=== PATIENT | male | born 1970 | race Caucasian/White ===

== ENCOUNTER 2016-09-25 09:34 | Emergency (ER) | payer SELFPAY ==
[~2016-09-25] VITALS: Ht 175.3 cm; Wt 116.5 kg
[2016-09-25 09:42] VITALS: Ht 175.3 cm; Wt 116.5 kg
[2016-09-25] MEDS ORDERED: SULF1TAB31 PO (10:25)
[2016-09-25] MEDS ORDERED: CEPH-443 PO (10:25)
[2016-09-25] MEDS ORDERED: ELIM TOP (10:29)
--- NOTE | 2016-09-25 10:33 | ERD ---
ER Documentation Chief Complaint Date/Time DATE: 09/25/16 TIME: 10:29 Chief Complaint left foot open blister x 10 days HPI Patient is a 45-year-old male who states that 10 days ago he went for a long walk and then developed a blister on his left foot. He is diabetic and takes metformin. She has mild to moderate pain in the foot. Denies any bleeding or drainage. Denies any fevers. Denies any numbness or tingling. Has not taken any medications for this. He is ambulatory. Patient is also complaining of bug bite-like lesions on the bilateral legs that he has been scratching that thinks it may be scabies. ROS All systems reviewed and are negative except as per history of present illness. Medications Home Meds Active Scripts Permethrin* (Elimite*) 5% Cr, 1 APPLIC TOP ONCE, #1 TUB Prov:KATIE JAY PA-C 09/25/16 Cephalexin* (Keflex*) 500 Mg Capsule, 500 MG PO QID for 7 Days, CAP Prov:KATIE JAY PA-C 09/25/16 Sulfamethoxazole/Trimethoprim* (Bactrim Ds* Tablet) 1 Each Tablet, 1 TAB PO BID , #14 TAB Prov:KATIE JAY PA-C 09/25/16 Allergies Allergies: Coded Allergies: No Known Allergy (Unverified , 09/25/16) PMhx/Soc History of Surgery: No Anesthesia Reaction: No Hx Respiratory Disorders: No Hx Cardiac Disorders: No Hx Psychiatric Problems: No Hx Miscellaneous Medical Probl: Yes (DM) Hx Alcohol Use: Yes Hx Substance Use: No Hx Tobacco Use: Yes Smoking Status: Former smoker FmHx Family History: diabetes Physical Exam Vitals Vital Signs Date Time Temp Pulse Resp B/P Pulse Ox O2 Delivery O2 Flow Rate FiO2 09/25/16 09:42 98.3 111 18 193/98 97 Physical Exam Const: [] Head: Atraumatic Eyes: Normal Conjunctiva ENT: Normal External Ears, Nose and Mouth. Neck: Full range of motion..~ No meningismus. Resp: Clear to auscultation bilaterally Cardio: Regular rate and rhythm, no murmurs Abd: Soft, non tender, non distended. Normal bowel sounds Skin: Plantar surface of the left foot has a large healing blister, no ulcer, mild surrounding erythema of the foot, pedal pulse 2+, capillary refill less than 2 seconds, sensation to light touch intact, full range of motion in the ankle and all toes. Bilateral lower extremities also have multiple small bug bite-like lesions. Results 24 hrs Laboratory Tests Test 09/25/16 10:21 Bedside Glucose 176mg/dL [facility] Patient presents with blisters on the foot. He is diabetic. He is neurovascularly intact. Patient's blood pressure was elevated (>120/80) but appears stable without evidence of hypertension emergency or urgency. The patient was counseled about the risks of hypertension and urged to pursue outpatient monitoring and therapy within a week with their primary care physician. Wound care was performed. Accu-Chek was 176. He was given a prescription for Bactrim, Keflex as well as permethrin for possible bug bites on lower extremities. Recommend he return in 2 days for wound check he should have a lower threshold for returning to the emergency room for his blister given that he is diabetic. Patient counseled regarding my diagnostic impression and care plan. Prior to discharge all questions answered. Pt agrees with treatment plan and understands strict return precautions. Pt is instructed to follow up with primary care provider within 24-48 hours. Precautionary instructions provided including instructions to return to the ER if not improving or for any worsening or changing symptoms or concerns. Departure Diagnosis: Primary Impression: Diabetes Additional Impressions: Blister Rash Condition: Stable Patient Instructions: Blister Additional Instructions: Call your primary care doctor TOMORROW for an appointment during the next 1-2 days.See the doctor sooner or return here if your condition worsens before your appointment time. KATIE JAY PA-C Sep 25, 2016 10:33
== END 2016-09-25 11:17 | disposition home or self-care (01) ==
LOC: FTE 09:34
DX: E11.9 Type 2 diabetes mellitus without complications (principal); R21 Rash and other nonspecific skin eruption; Z87.891 Personal history of nicotine dependence
CPT/HCPCS: 82962; 99284

== ENCOUNTER 2017-01-20 13:29 | Emergency (ER) | payer OTHER ==
[~2017-01-20] VITALS: Ht 175.3 cm; Wt 117.0 kg
[~2017-01-20 13:29] MED LIST: CEPH-443 PO; ELIM TOP; SULF1TAB31 PO
[2017-01-20 13:31] VITALS: Ht 175.3 cm; Wt 117.0 kg
--- NOTE | 2017-01-20 15:26 | RADRPT ---
PROCEDURE: XR left foot. CLINICAL INDICATION: Left foot pain. Diabetic foot ulcer. TECHNIQUE: 3 views. Frontal, lateral, and oblique. COMPARISON: None. FINDINGS: There is no fracture or dislocation. Vascular calcifications are present consistent with atherosclerosis. The soft tissues are otherwise normal. Articular surfaces are intact. There is a plantar calcaneal spur. There is no lytic or blastic lesion. There is no radiopaque foreign body. IMPRESSION: 1. Atherosclerosis. 2. Plantar calcaneal spur. 3. No lytic lesion. 4. No fracture. 5. Otherwise unremarkable images of the left foot. RPTAT: QQ .Fady Deras MD, MD Date Time Electronically viewed and signed by .Fady Deras MD, on 01/20/2017 15:26 .R/
--- NOTE | 2017-01-20 15:38 | ERD ---
ER Documentation Chief Complaint Chief Complaint left foot wound x 3 months HPI 46-year-old male complaining of left foot wound 3 months. Patient is diabetic. Denies any fever. Denies purulence from the wound. Patient has been cleaning it with bacitracin ointment and water. Patient has not been seen by podiatry. Denies any severe pain. Denies swelling. ROS All systems reviewed and are negative except as per history of present illness. Medications Home Meds Active Scripts Permethrin* (Elimite*) 5% Cr, 1 APPLIC TOP ONCE, #1 TUB Prov:KATIE JAY PA-C 09/25/16 Cephalexin* (Keflex*) 500 Mg Capsule, 500 MG PO QID for 7 Days, CAP Prov:KATIE JAY PA-C 09/25/16 Sulfamethoxazole/Trimethoprim* (Bactrim Ds* Tablet) 1 Each Tablet, 1 TAB PO BID , #14 TAB Prov:KATIE JAY PA-C 09/25/16 Allergies Allergies: Coded Allergies: No Known Allergy (Unverified , 09/25/16) PMhx/Soc History of Surgery: No Anesthesia Reaction: No Hx Respiratory Disorders: No Hx Cardiac Disorders: No Hx Psychiatric Problems: No Hx Miscellaneous Medical Probl: Yes (DM) Hx Alcohol Use: Yes Hx Substance Use: No Hx Tobacco Use: Yes Physical Exam Vitals Vital Signs Date Time Temp Pulse Resp B/P Pulse Ox O2 Delivery O2 Flow Rate FiO2 01/20/17 13:31 97.0 112 20 172/111 99 Physical Exam GENERAL: The patient is well-appearing, well-nourished, in no acute distress CHEST: Clear to auscultation bilaterally. There are no rales, wheezes or rhonchi. HEART: Regular rate and rhythm. No murmurs, clicks, rubs or gallops. No S3 or S4. EXTREMITIES: Equal pulses bilaterally. There is no peripheral clubbing, cyanosis or edema. No focal swelling or erythema. Full range of motion. Grossly neurovascularly intact. NEUROLOGIC: Alert and oriented. Cranial nerves II through XII intact. Motor strength in all 4 extremities with 5 out of 5 strength. Sensation grossly intact. Normal speech and gait SKIN: 1.5 cm x 8 mm open wound full thickness to sole of left foot located at the third MTP joint. No surrounding erythema. No purulence. No swelling noted to the extremity. No tenderness to palpation. Procedures/MDM DIAGNOSTIC IMAGING REPORT Patient: MARTINA ASHTON : 1970 Age: 46 Sex: M MR #: [id number] [facility] #: [id number] DOS: 01/20/17 1443 Ordering MD: TOMER GARCIA PA-C Location: [facility] Room/Bed: PROCEDURE: XR left foot. CLINICAL INDICATION: Left foot pain. Diabetic foot ulcer. TECHNIQUE: 3 views. Frontal, lateral, and oblique. COMPARISON: None. FINDINGS: There is no fracture or dislocation. Vascular calcifications are present consistent with atherosclerosis. The soft tissues are otherwise normal. Articular surfaces are intact. There is a plantar calcaneal spur. There is no lytic or blastic lesion. There is no radiopaque foreign body. IMPRESSION: 1. Atherosclerosis. 2. Plantar calcaneal spur. 3. No lytic lesion. 4. No fracture. 5. Otherwise unremarkable images of the left foot. MDM: 46-year-old male complaining of wound to left foot. Low suspicion for osteomyelitis as there is no pain to the foot and no surrounding erythema or swelling. There is no purulence. This is likely a chronic diabetic foot ulcer that would benefit from wound care follow-up. I do not feel that blood work or further imaging is indicated at this time. Patient has neuro sensation to the foot however is decreased secondary to diabetic neuropathy. Patient is discharged with strict ER precautions and told to follow-up with wound care and amputation clinic. Patient is told symptoms change or worsen to return immediately to the emergency room. All questions answered at discharge Departure Diagnosis: Primary Impression: Diabetic foot ulcer Condition: Stable Patient Instructions: Diabetic Foot Ulcers Referrals: [facility] Additional Instructions: FOLLOW UP WITH YOUR PRIMARY CARE PHYSICIAN TOMORROW.Return to this facility if you are not improving as expected. NAOMIE GARCIA PA-C Jan 20, 2017 15:38
[2017-01-20 15:47] VITALS: BP 162/92; PULSE 92; RESP 20; TEMP 98.1
== END 2017-01-20 15:48 | disposition home or self-care (01) ==
LOC: FTE 13:29
DX: E11.621 Type 2 diabetes mellitus with foot ulcer (principal); Z87.891 Personal history of nicotine dependence

== ENCOUNTER 2017-01-31 15:31 | Inpatient (IN) | payer OTHER ==
[2017-01-31] VITALS (16 sets, daily range): BP systolic 115–164; BP diastolic 58–90; PULSE 110–133; RESP 19–25; Ht 175.3 cm; Wt 116.0 kg
[~2017-01-31] VITALS: Ht 175.3 cm; Wt 116.0 kg
[2017-01-31] MEDS ORDERED: LIDOCAINE 2% (MDV) 20 ML INJ INJ ONE (16:05)
[2017-01-31] MEDS ORDERED: BUPIVACAINE 0.25% (MPF) 30 ML INJ INJ ONE (16:05)
[2017-01-31] MEDS ORDERED: POLYMYXIN/BACITRACIN 1L IRRIG IRR ONE (16:06)
[2017-01-31] MEDS ORDERED: LIDOCAINE 2% (MDV) 20 ML INJ ONE (16:12)
[2017-01-31] MEDS ORDERED: POLYMYXIN/BACITRACIN 1L IRRIG ONE (16:12)
[2017-01-31] MEDS ORDERED: BUPIVACAINE 0.5% (SDV) 30 ML INJ ONE (16:12)
[2017-01-31] MEDS ORDERED: CEFAZOLIN 2 GM/50 ML (PMX) 50 ML IVPB ONE (16:30)
[2017-01-31] MEDS ORDERED: VANCOMYCIN 1 GM in NS 250 ML IVPB ONE (16:30)
[2017-01-31] MEDS ORDERED: ACETAMINOPHEN 325 MG TAB ONE (16:32)
[2017-01-31] MEDS: SOD CHLORIDE 0.45% 1,000 ML IV SCH ×2 (16:42→21:26)
--- NOTE | 2017-01-31 16:56 | HPN ---
Date/Time of Note Date/Time of Note DATE: 01/31/17 TIME: 16:56 Interval H&P Admission Note Pt. seen H&P reviewed: No system changes JACOB NUÑEZ DPM Jan 31, 2017 16:56
--- NOTE | 2017-01-31 16:56 | HP ---
Date/Time of Note Date/Time of Note DATE: 01/31/17 TIME: 16:50 Assessment/Plan VTE Prophylaxis VTE Prophylaxis Intervention: heparin Assessment/Plan Chief Complaint/Hosp Course Assessment and plan: 46-year-old male type 2 diabetes, left foot wound, essential hypertension, presents with left foot pain 3 days, with signs of left foot gas gangrene, awaiting surgical operation for treatment of this 1. Left foot pain/gas gangrene: Would recommend continuing broad-spectrum antibiotics, check TSH A1c lipid panel. Give the patient n.p.o. as he is awaiting possible surgical procedure to treat the gas gangrene in the next few moments. Continue IV fluids and pain control medications. Based on patient's past history of diabetes, and no apparent known cardiac abnormalities, if EKG and troponin do not show any particular abnormalities, patient would be intermediate to low risk for operation today. -Follow-up business sales consultant recommendations. 2. Type 2 diabetes: Again check A1c, put patient on sliding scale insulin. Apparently he only takes metformin at home 3. Essential hypertension: Monitor blood pressure for now, hydralazine as needed 4. 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 Symptoms have been going on for 3 days he has had subjective chills and fevers as well. Had some mild nausea vomiting symptoms. Denies any discharge or bleeding from the foot. Denies chest pain or shortness of breath no diarrhea constipation no upper lower GI bleeding. When I was examining him today he did have positive temperature of 103 and his heart rate was in the 120 range, is and is presently awaiting medical clearance for surgical procedure to be performed on the left foot as there is concern of gas gangrene of her left foot presently. PMH/Family/Social Past Surgical History Past Surgical Hx: no surgical history Family History Significant Family History: diabetes (Father, sister) Social History Alcohol Use: occasionally Smoking Status: Former smoker (Quit 20 years ago) Drug Use: none Exam/Review of Systems Exam Exam General: Lying in bed, answer questions verbally, no acute distress HEENT: Pupils equal round reactive to light, extraocular muscles intact Neck: Supple Respiratory: Clear to auscultation bilaterally Cardiovascular: S1, S2 heard tachycardic heart rate Abdomen: Soft, nontender, nondistended, no rebound or guarding Muscular skeletal: Bandage over the left foot with mild oozing through the bandage with some odor, otherwise no lower extremity edema bilaterally Neurologic: No focal deficits Skin: Multiple skin tattoos on bilateral upper extremity's, no rashes noted Medications Medications Current Medications Cefazolin Sodium/ Dextrose 50 ml @ 100 mls/hr PRE-OP ONCE IVPB ; Start at 16:30; Stop 01/31/17 at 16:59 Vancomycin HCl (Vancocin) 250 ml @ 125 mls/hr PRE-OP ONCE IVPB ; Start at 16:30; Stop 01/31/17 at 18:29 Acetaminophen (Tylenol Tab) 650 mg Q6H PRN PO PAIN AND OR ELEVATED TEMP; Start 01/31/17 at 17:00 Ondansetron HCl (Zofran Inj) 4 mg Q6H PRN IV NAUSEA AND/OR VOMITING; Start 01/31/17 at 17:00; Status UNV Acetaminophen (Tylenol Tab) 650 mg Q6H PRN PO PAIN LEVEL 1-3 OR FEVER; Start 01/31/17 at 17:00; Status UNV Acetaminophen/ Hydrocodone Bitart ([place] (5/325)) 1 tab Q6H PRN PO MODERATE PAIN LEVEL 4-6; Start 01/31/17 at 17:00; Status UNV Morphine Sulfate (morphine) 2 mg Q4H PRN IV SEVERE PAIN LEVEL 7-10; Start 01/31 at 17:00; Status UNV Docusate Sodium (Colace) 100 mg Q12H PRN PO CONSTIPATION; Start 01/31/17 at 17: 00; Status UNV Magnesium Hydroxide (Milk Of Mag) 30 ml DAILY PRN PO CONSTIPATION; Start at 17:00; Status UNV Sodium Biphosphate/ Sodium Phosphate (Fleet Enema) 133 ml DAILY PRN MT CONSTIPATION; Start 01/31/17 at 17:00; Status UNV Pantoprazole (Protonix Tab) 40 mg DAILY@06 PO ; Start 02/01/17 at 06:00; Status UNV Heparin Sodium (Porcine) 5000 unit 5,000 unit Q12 SC ; Start 01/31/17 at 21:00; Status UNV Sodium Chloride (1/2 NS) 1,000 ml @ 75 mls/hr [id number] IV ; Start 01/31/17 at 16 :42; Status UNV Lorazepam (Ativan) 0.5 mg Q6H PRN IV ANXIETY; Start 01/31/17 at 17:00; Status UNV Hydralazine HCl (Apresoline) 10 mg Q6H PRN IV ELEVATED BLOOD PRESSURE; Start 01/31/17 at 17:00; Status UNV Nitroglycerin (Nitroglycerin (Sl Tab) 0.4 Mg) 1 tab Q5M PRN SL ANGINA; Start 01/31/17 at 17:00; Status UNV Miscellaneous Information (* Miscellaneous Pharmacy Order) Discontinue current oral sulfonylur... ONCE ONCE XX ; Start 01/31/17 at 17:00; Stop 01/31/17 at 17: 01; Status UNV Diagnostic Test (Pha) (Accu-Chek) 1 ea XX ; Start 02/01/17 at 02:00; Status UNV Miscellaneous Information (* Miscellaneous Pharmacy Order) HYPOGLYCEMIA PROTOCOL w... ONCE ONCE XX ; Start 01/31/17 at 17:00; Stop 01/31/17 at 17:01; Status UNV Insulin Aspart (Novolog Insulin Pen) NOVOLOG *MILD* ALGORI... Q4 SC ; Start 01/31/17 at 17:00; Status UNV Miscellaneous Information (* Miscellaneous Pharmacy Order) Discontinue all previ... ONCE ONCE XX ; Start 01/31/17 at 17:00; Stop 01/31/17 at 17:01; Status UNV Insulin Aspart (Novolog Insulin Pen) 6 unit ONCE ONCE SC ; Start 01/31/17 at 17 :00; Stop 01/31/17 at 17:01; Status UNV TIFFANIE ALANIS Jan 31, 2017 16:55
[2017-01-31] MEDS: INSULIN ASPART [NOVOLOG] 3 ML PEN SC SCH ×2 (17:00→20:42)
[2017-01-31] MEDS ORDERED: GLUCAGON 1 MG INJ IM PRN (17:00)
[2017-01-31] MEDS ORDERED: ALBUTEROL/IPRATROPIUM (NEB) 3 ML AMP HHN PRN (17:00)
[2017-01-31] MEDS ORDERED: INSULIN ASPART [NOVOLOG] 3 ML PEN SC ONE (17:00)
[2017-01-31] MEDS ORDERED: ACETAMINOPHEN 325 MG TAB PO PRN (17:00)
[2017-01-31] MEDS ORDERED: hydrALAzine 20 MG INJ IV PRN (17:00)
[2017-01-31] MEDS ORDERED: NA PHOSPHATE/BIPHOS 133 ML ENEMA PR PRN (17:00)
[2017-01-31] MEDS ORDERED: NACL 0.9% 3 ML SYG IV SCH ×2 (17:00→19:00)
[2017-01-31] MEDS ORDERED: LORAZEPAM 2 MG INJ IV PRN (17:00)
[2017-01-31] MEDS ORDERED: GLUCOSE GEL 15 GRAM TUBE PO PRN ×2 (17:00)
[2017-01-31] MEDS ORDERED: ONDANSETRON 4 MG INJ IV PRN ×2 (17:00→19:00)
[2017-01-31] MEDS ORDERED: GLUCOSE GEL 15 GRAM TUBE BUCCAL PRN (17:00)
[2017-01-31] MEDS ORDERED: morphine 2 MG INJ IV PRN (17:00)
[2017-01-31] MEDS ORDERED: DOCUSATE SODIUM 100 MG CAP PO PRN (17:00)
[2017-01-31] MEDS ORDERED: MAGNESIUM HYDROXIDE 30ML CUP PO PRN (17:00)
[2017-01-31] MEDS ORDERED: NITROGLYCERIN (SL) 0.4 MG TAB SL PRN (17:00)
[2017-01-31] MEDS ORDERED: DEXTROSE 50% 50 ML SYRINGE IV PRN ×4 (17:00→19:00)
[2017-01-31] MEDS ORDERED: METF1000 PO (17:08)
[2017-01-31] MEDS: ACETAMINOPHEN 325 MG TAB PO PRN (17:10)
[2017-01-31] MEDS ORDERED: MIDAZOLAM 1 MG/ML 2 ML INJ ONE (17:21)
[2017-01-31] MEDS ORDERED: BACITRACIN 50000 UNITS INJ ONE (17:36)
[2017-01-31] MEDS ORDERED: PHENYLephrine (100 MCG/ML) 5ML SYG ONE (17:55)
[2017-01-31] MEDS ORDERED: BACITRACIN 50000 UNITS INJ IRR ONE (18:10)
[2017-01-31] MEDS ORDERED: SODIUM CHLORIDE 0.9% 1L IRRIG IRR ONE ×2 (18:11)
[2017-01-31] MEDS ORDERED: PROPOFOL 20 ML ONE (18:35)
[2017-01-31] MEDS ORDERED: LIDOCAINE 2% (SDV) 5 ML INJ ONE (18:35)
[2017-01-31] MEDS ORDERED: ONDANSETRON 4 MG INJ ONE (18:35)
--- NOTE | 2017-01-31 18:36 | SIPON ---
Date/Time of Note Date/Time of Note DATE: 01/31/17 TIME: 18:35 Operative Report Preoperative Diagnosis Left foot gas gangrene Postoperative Diagnosis Same Operation/Procedure Performed Left foot radical incision and drainage. Surgeon see signature line podiatry assistant none Anesthesia: moderate sedation Estimated blood loss: 10 - 50 ml's Transfusion Required none Specimen specimen from left foot wound Grafts/Implants none Complications none JACOB NUÑEZ DPM Jan 31, 2017 18:36
[2017-01-31] MEDS ORDERED: SOD CHLORIDE 0.9% 1,000 ML IV SCH (18:37)
[2017-01-31] MEDS ORDERED: HYDROmorphONE (0.2 MG/ML) 10ML SYG IV PRN ×2 (19:00)
[2017-01-31] MEDS ORDERED: METOCLOPRAMIDE 10 MG INJ IV PRN (19:00)
[2017-01-31] MEDS ORDERED: MEPERIDINE 25 MG INJ IV PRN (19:00)
[2017-01-31] MEDS ORDERED: DIPHENHYDRAMINE 50 MG INJ IV PRN (19:00)
[2017-01-31] MEDS ORDERED: FENTAnyl 50 MCG/ML VIAL IV PRN (19:00)
--- NOTE | 2017-01-31 19:02 | OPR ---
Date/Time of Note Date/Time of Note DATE: 01/31/17 TIME: 18:52 Operative Report Preoperative Diagnosis Left foot gas gangrene Postoperative Diagnosis same Operation/Procedure Performed Left foot incision and drainage Surgeon see signature line Itinerant Teacher Assistant none Anesthesia Type: general Estimated Blood Loss: 10 - 50 ml's Transfusion none Specimen Specimen left foot wound Grafts/Implants none Complications none Pt Condition Post Procedure: other Disposition: PACU Indications Patient with left foot gas gangrene per x-rays, foul smelling wound, fevers and nausea seen in clinic. Patient advised for immediate need for surgery. He was consented and consent available per chart. Procedure Description Patient brought into operating room and placed in operating table in supine position. He was placed under general anesthesia. Ankle block with 10 cc 1:1 Lidocaine 2% mixed with Marcaine 0.5 % plain. Patient given Ancef and vancomycin. Ankle tourniquet applied to left ankle. Left foot and ankle prep and draped in usual sterile manner. Left ankle tourniquet inflated to 225 mm HG. Incision dorsal 3rd met head made with 15 blade. Incision was deepen with blunt direction. Purulent drainage noted. Wound dorsally probed all the way down to ulcer sub 3rd met head. Plant ulcer was debrided and deep space blunt dissection of wound. More purulent drainage expressed from plantar aspect of left foot ulcer site. Wound debrided using rongeur, cultures sent from specimen. The area was flushed with normal saline mixed with bacitracin pulse lavage 2 liters. The tourniquet deflated and another liter of pulse lavage performed. All non viable and necrotic tissue was removed. Areas of open wound were packed with iodoform, dressing with 4x4, ABD pad, Nikki and Coban. Patient tolerated procedure. Patient to be admitted for IV antibiotics. JACOB NUÑEZ DPM Jan 31, 2017 19:02
[2017-01-31] MEDS ORDERED: LACTATED RINGER'S 1,000 ML IV SCH (19:37)
[2017-01-31 19:50] LABS: PARTIAL THROMBOPLASTIN TIME 35.8 Sec (25.0-35.0)
[2017-01-31] MEDS ORDERED: INSULIN GLARGINE [LANtus] 3 ML PEN SC SCH (20:00)
[2017-01-31 20:08] LABS: INR 1.27; PROTIME 16.1 Sec (11.9-14.9); PT RATIO 1.3
[2017-01-31] MEDS ORDERED: HEPARIN 5,000 UNIT/0.5 ML VIAL SC SCH (21:00)
[2017-01-31 21:17] LABS: CALCIUM 7.4 mg/dl (8.4-10.2); CREATININE 1.51 mg/dl (0.61-1.24)
[2017-01-31 21:21] LABS: POTASSIUM 4.2 mmol/L (3.5-5.1)
[2017-01-31] MEDS: HEPARIN 5,000 UNIT/0.5 ML VIAL SC SCH (21:33)
[2017-02-01 00:08] VITALS: BP 133/60; RESP 18
[2017-02-01] MEDS: ACCU-CHEK XX SCH ×2 (02:00→22:54)
[2017-02-01] MEDS: HYDROCODONE/APAP (5/325) TAB PO PRN ×2 (02:07→16:05)
[2017-02-01 05:29] VITALS: BP 138/73; PULSE 111; RESP 18
[2017-02-01] MEDS: SOD CHLORIDE 0.45% 1,000 ML IV SCH ×3 (06:02→19:30)
[2017-02-01] MEDS: PANTOPRAZOLE (EC) 40 MG TAB PO SCH (06:15)
[2017-02-01 06:18] LABS: BASOPHIL # 0.1 10^3/ul (0.0-0.1); BASOPHILS % 0.2 % (0.0-2.0); HEMATOCRIT 28.2 % (42.0-52.0); HEMOGLOBIN 9.8 g/dl (14.0-18.0); LYMPHOCYTES # 1.4 10^3/ul (0.8-2.9); LYMPHOCYTES % 6.6 % (15.0-51.0); MEAN CORPUSCULAR HEMOGLOBIN 29.8 pg (29.0-33.0); MEAN CORPUSCULAR HGB CONC 34.8 g/dl (32.0-37.0); MEAN CORPUSCULAR VOLUME 85.7 fl (82.0-101.0); MONOCYTE # 1.4 10^3/ul (0.3-0.9); MONOCYTES % 6.8 % (0.0-11.0); NEUTROPHILS % 85.8 % (39.0-77.0); PLATELET COUNT 203 10^3/UL (140-415); RED BLOOD COUNT 3.29 10^6/ul (4.70-6.10); RED CELL DISTRIBUTION WIDTH 12.1 % (11.5-14.5)
[2017-02-01] MEDS: HEPARIN 5,000 UNIT/0.5 ML VIAL SC SCH ×3 (06:22→21:19)
[2017-02-01 06:43] LABS: CHOL/HDL RATIO 4.4 RATIO
[2017-02-01 06:50] LABS: CALCIUM 7.8 mg/dl (8.4-10.2); CREATININE 1.24 mg/dl (0.61-1.24); PHOSPHORUS 2.6 mg/dl (2.5-4.9); POTASSIUM 3.8 mmol/L (3.5-5.1)
[2017-02-01] MEDS ORDERED: VANCOMYCIN 1.5 GM in SOD CHLORIDE 0.9% 250 ML IVPB SCH (07:30)
--- NOTE | 2017-02-01 07:42 | PN ---
Date/Time of Note Date/Time of Note DATE: 02/01/17 TIME: 07:35 Assessment/Plan Lines/Catheters IV C[facility]ter Type (from [facility]): Peripheral IV Assessment/Plan Assessment/Plan 46 yo male with uncontrolled DM 1 day s/p left foot emergent incision and drainage for gas gangrene of left foot. Patient is doing better. He was not started on IV antibiotics as recommended. Recommendations. 1. Patient needs to start on Vancomycin and Zosyn now, orders were placed, adjustments as recommended by ID or Medicine team. 2. STAT ID consult 3. STAT MRI of left foot with out contrast. 4. Daily dressing of left foot with nursing staff, flushing with normal saline mixed with betadine and then packing wounds with 1 inch Iodoform. 5. Post/op shoe, patient can transition out of bed heel weight bearing only. Will continue to follow patient, appreciate Medicine team care of patient. Subjective 24 Hr Interval Summary Patient seen bedside s/p Left foot Incision and Drainage for left foot gas gangrene. Patient is feeling better over night. He is afebrile. No pain or nausea. Exam/Review of Systems Vital Signs Vitals Vital Signs Date Time Temp Pulse Resp B/P Pulse Ox O2 Delivery O2 Flow Rate FiO2 02/01/17 05:29 98.8 111 18 138/73 98 Nasal Cannula 2.0 Intake and Output 01/31/17 01/31/17 02/01/17 15:00 23:00 07:00 Intake Total 1800 ml 1475 ml Output Total 25 ml 2150 ml Balance 1775 ml -675 ml Exam Free Text/Dictation Left foot decreased swelling noted. Dorsal and plantar wounds with mixed fibrotic tissue. There is no drainage of left foot noted. No active bleeding noted. No proximal streaking noted. Results Result Diagram: 02/01/17 0502 01/31/17 1921 JACOB NUÑEZ DPM Feb 01, 2017 07:42
[2017-02-01] MEDS: PIPER-TAZO 2.25 GM (PMX) 50 ML IVPB SCH ×4 (07:53→23:59)
[2017-02-01 07:56] LABS: MAGNESIUM 1.5 mg/dl (1.7-2.5)
[2017-02-01 07:59] LABS: THYROID STIMULATING HORMONE 2.3 MIU/L (0.465-4.680)
[2017-02-01 08:52] VITALS: BP 128/68; RESP 18
[2017-02-01] MEDS ORDERED: VANCOMYCIN 1.75 GM in NS 500 ML IVPB SCH (09:00)
[2017-02-01] MEDS ORDERED: MAGNESIUM SULFATE 2 GM/50 ML 50 ML IVPB ONE (09:30)
[2017-02-01] MEDS: INSULIN ASPART [NOVOLOG] 3 ML PEN SC SCH ×5 (09:40→21:00)
--- NOTE | 2017-02-01 11:13 | RADRPT ---
PROCEDURE: XR left foot. CLINICAL INDICATION: Left foot pain. Postop. TECHNIQUE: 3 views. Frontal, lateral, and oblique. COMPARISON: 01/31/2017 at 1500 hours. FINDINGS: There is gas in the soft tissues overlying the third metatarsal phalangeal joint. Vascular calcifica tions are present consistent with atherosclerosis. The soft tissues are otherwise unremarkable. There is no fracture or dislocation. Articular surfaces are intact. There is a plantar calcaneal spur. There is possible lysis of the base of the third proximal phalanx. There is no radiopaque foreign body. IMPRESSION: 1. Gas in the soft tissues overlying the third metatarsal phalangeal joint. 2. Atherosclerosis. 3. Plantar calcaneal spur. 4. Possible lysis of the base of the third proximal phalanx. RPTAT: QQ .Fady Deras MD, MD Date Time Electronically viewed and signed by .Fady Deras MD, on 02/01/2017 11:13 .R/
--- NOTE | 2017-02-01 13:09 | PN ---
Date/Time of Note Date/Time of Note DATE: 02/01/17 TIME: 13:05 Assessment/Plan VTE Prophylaxis VTE Prophylaxis Intervention: heparin Lines/Catheters IV Catheter Type (from [facility]): Peripheral IV Urinary Cath still in place: No Assessment/Plan Chief Complaint/Hosp Course S: Patient had IND surgery yesterday, sugars high normal range, no acute events overnight. O: VS (see below) PE: General: Lying in bed, answer questions verbally, no acute distress HEENT: Pupils equal round reactive to light, extraocular muscles intact Neck: Supple Respiratory: Clear to auscultation bilaterally Cardiovascular: S1, S2 heard tachycardic heart rate Abdomen: Soft, nontender, nondistended, no rebound or guarding Muscular skeletal: Bandage over the left foot with mild oozing through the bandage with some odor, otherwise no lower extremity edema bilaterally Neurologic: No focal deficits Skin: Multiple skin tattoos on bilateral upper extremity's, no rashes noted Assessment and plan: 46-year-old male type 2 diabetes, left foot wound, essential hypertension, presents with left foot pain 3 days, with signs of left foot gas gangrene, that is post I&D postop day #1. 1. Left foot pain/gas gangrene: Status post incision and drainage postop day # 1 -Continue IV fluids and pain control medications. -Continue antibiotics, follow-up podiatry recommendations, get physical therapy as well -MRI of the left foot is pending as well, infectious disease consult will be ordered 2. Type 2 diabetes -wears high normal range, Apparently he only takes metformin at home - continue sliding scale insulin. -Lantus and aspart with meals 3. Essential hypertension: Monitor blood pressure for now, hydralazine as needed 4. GI reflexes: PPI Problems: Exam/Review of Systems Vital Signs Vitals Vital Signs Date Time Temp Pulse Resp B/P Pulse Ox O2 Delivery O2 Flow Rate FiO2 02/01/17 08:52 99.4 109 18 128/68 98 02/01/17 05:29 Nasal Cannula 2.0 Intake and Output 01/31/17 01/31/17 02/01/17 15:00 23:00 07:00 Intake Total 1800 ml 1475 ml Output Total 25 ml 2150 ml Balance 1775 ml -675 ml Results Result Diagram: 02/01/17 0502 02/01/17 0502 Results 24 hrs Laboratory Tests Test 01/31/17 15:25 01/31/17 16:12 01/31/17 18:47 01/31/17 19:21 Free Thyroxine 1.56 Bedside Glucose 311 H 247 H Prothrombin Time 16.1 H Prothrombin Time Ratio 1.3 INR International Normalized Ratio 1.27 Activated Partial Thromboplast Time 35.8 H Sodium Level 127 L Potassium Level 4.2 Chloride Level 96 L Carbon Dioxide Level 22 Anion Gap 13 Blood Urea Nitrogen 20 Creatinine 1.51 H Glucose Level 255 H Fasting Glucose 255 H Hemoglobin A1c 7.7 H Calcium Level 7.4 L Troponin I < 0.012 Test 01/31/17 20:35 02/01/17 02:04 02/01/17 05:02 02/01/17 05:03 Bedside Glucose 253 H 183 White Blood Count 21.0 H Red Blood Count 3.29 L Hemoglobin 9.8 L Hematocrit 28.2 L Mean Corpuscular Volume 85.7 Mean Corpuscular Hemoglobin 29.8 Mean Corpuscular Hemoglobin Concent 34.8 Red Cell Distribution Width 12.1 Platelet Count 203 Mean Platelet Volume 10.0 Neutrophils % 85.8 H Lymphocytes % 6.6 L Monocytes % 6.8 Eosinophils % 0.0 Basophils % 0.2 Nucleated Red Blood Cells % 0.0 Neutrophils # 18.0 H Lymphocytes # 1.4 Monocytes # 1.4 H Eosinophils # 0.0 Basophils # 0.1 Nucleated Red Blood Cells # 0.0 Sodium Level 133 L Potassium Level 3.8 Chloride Level 99 Carbon Dioxide Level 27 Anion Gap 11 Blood Urea Nitrogen 17 Creatinine 1.24 Glucose Level 184 Hemoglobin A1c 7.5 H Calcium Level 7.8 L Phosphorus Level 2.6 Magnesium Level 1.5 L Triglycerides Level 76 Cholesterol Level 98 L LDL Cholesterol, Calculated 61 HDL Cholesterol 22 L Cholesterol/HDL Ratio 4.4 Thyroid Stimulating Hormone (TSH) 2.300 Test 02/01/17 09:12 02/01/17 12:41 Bedside Glucose 189 181 Medications Medications Current Medications Ondansetron HCl (Zofran Inj) 4 mg Q6H PRN IV NAUSEA AND/OR VOMITING; Start 01/31/17 at 17:00 Acetaminophen (Tylenol Tab) 650 mg Q6H PRN PO PAIN LEVEL 1-3 OR FEVER Last administered on 01/31/17t 17:10; Admin Dose 650 MG; Start 01/31/17 at 17:00 Acetaminophen/ Hydrocodone Bitart ([place] (5/325)) 1 tab Q6H PRN PO MODERATE PAIN LEVEL 4-6 Last administered on 02/01/17 02:07; Admin Dose 1 TAB; Start at 17:00 Morphine Sulfate (morphine) 2 mg Q4H PRN IV SEVERE PAIN LEVEL 7-10; Start 01/31 at 17:00 Docusate Sodium (Colace) 100 mg Q12H PRN PO CONSTIPATION; Start 01/31/17 at 17: 00 Magnesium Hydroxide (Milk Of Mag) 30 ml DAILY PRN PO CONSTIPATION; Start at 17:00 Sodium Biphosphate/ Sodium Phosphate (Fleet Enema) 133 ml DAILY PRN [place] CONSTIPATION; Start 01/31/17 at 17:00 Pantoprazole 40 mg 40 mg DAILY@06 PO Last administered on 02/01/17 06:15; Admin Dose 40 MG; Start 02/01/17 at 06:00 Sodium Chloride (1/2 NS) 1,000 ml @ 75 mls/hr [id number] IV Last administered on 01/31/17 21:26; Admin Dose 75 MLS/HR; Start 01/31/17 at 16:42 Lorazepam (Ativan) 0.5 mg Q6H PRN IV ANXIETY; Start 01/31/17 at 17:00 Hydralazine HCl (Apresoline) 10 mg Q6H PRN IV ELEVATED BLOOD PRESSURE; Start 01/31/17 at 17:00 Nitroglycerin (Nitroglycerin (Sl Tab) 0.4 Mg) 1 tab Q5M PRN SL ANGINA; Start 01/31/17 at 17:00 Diagnostic Test (Pha) (Accu-Chek) 1 ea 02 XX ; Start 02/01/17 at 02:00 Miscellaneous Information 1 ea NOTE XX ; Start 01/31/17 at 17:00 Glucose (Glutose) 15 gm Q15M PRN PO DECREASED GLUCOSE; Start 01/31/17 at 17:00 Glucose (Glutose) 22.5 gm Q15M PRN PO DECREASED GLUCOSE; Start 01/31/17 at 17: 00 Glucagon (Glucagen) 1 mg Q15M PRN IM DECREASED GLUCOSE; Start 01/31/17 at 17:00 Glucose (Glutose) 15 gm Q15M PRN BUCCAL DECREASED GLUCOSE; Start 01/31/17 at 17 :00 Heparin Sodium (Porcine) (Heparin (5000 Units/0.5 ml)) 5,000 unit Q8 SC Last administered on 02/01/17 06:22; Admin Dose 5,000 UNIT; Start 01/31/17 at 22:00 Dextrose (D50w Syringe) 50 ml Q15M PRN IV For BS 50 or less; Start 01/31/17 at 19:00 Dextrose 25 ml 25 ml Q15M PRN IV BS between 50-70; Start 01/31/17 at 19:00 Piperacillin Sod/ Tazobactam Sod 50 ml @ 100 mls/hr Q6 IVPB Last administered on 02/01/17 07:53; Admin Dose 100 MLS/HR; Start 02/01/17 at 07:00 Vancomycin HCl 1.75 gm/Sodium Chloride 500 ml @ 125 mls/hr ONCE@09 IVPB Last administered on 02/01/17 10:00; Admin Dose 125 MLS/HR; Start 02/01/17 at 09:00 ; Stop 02/01/17 at 16:00 Vancomycin HCl/ Sodium Chloride (Vancocin/NS) 250 ml @ 83.333 mls/ hr Q12H IVPB ; Start 02/01/17 at 21:00 Insulin Glargine (Lantus) 20 unit DAILY@20 SC ; Start 02/01/17 at 20:00; Status TIFFANIE MACKEY Feb 01, 2017 13:09
--- NOTE | 2017-02-01 13:53 | CONS ---
Date/Time of Note Date/Time of Note DATE: 02/01/17 TIME: 13:33 Assessment/Plan Assessment/Plan Chief Complaint/Hosp Course ID PROGRESS NOTE TOTAL ABX DAY #2 CURRENT ABX=> *Vanco IV + Zosyn HOSPITAL COURSE => See Dr. Purvis's Full Note Dictation = pending * POD #1 => S/P Left foot incision and drainage * 01/31/17 WOUND CX: WOUND CULTURE Preliminary Organism 1 STREPTOCOCCUS GROUP C QUANTITY 2+ 24H INTERVAL SUMMARY * A/A/O, no complaints, tells me his left foot was cultured and wound packed/ dressed, he is waiting for MRI * 01/31/17 FOOT X-RAY: IMPRESSION: * 1. Plantar skin ulceration with extensive soft tissue gas centered at the third metatarsophalangeal joint suspicious for a necrotizing infection. * 2. Concern for osteomyelitis at the base of the third proximal phalanx and the head of the third metatarsal. Consider MRI for confirmation and to assess for extent of disease. EXAM GENERAL:46 yo obese M, A/A/O, VSS, polite, good historian, appears to be coping well HEENT: Unremarkable NECK: Supple, trachea midline. CHEST: Equal chest rise bilaterally, without dyspnea on observation HEART: Pulse RRR ABDOMEN: Soft, NT EXTREMITIES: Warm, LEFT foot DSG + JORDI wrap intact, not removed ID ASSESSMENT 46 yo admit with: 1. Sepsis w/SIRS criteria Fevers > 104, tachycardia HR 133, leukocytosis (WBC 19.3 - 21.0) 2. Acute gas gangrene diabetic foot ulcer * POD #1 => S/P 01/31/17 Left foot incision and drainage * 01/31/17 WOUND CX: WOUND CULTURE Preliminary Organism 1 STREPTOCOCCUS GROUP C QUANTITY 2+ 3. DMT2 w/complication of DM peripheral neuropathy * A1C @ 7.5 4. Acute vs CKD 5. Former tobacco -> QUIT ()MRSA Nares INVASIVES: PIV ABX ALLERGY: KNDA CURRENT ABX=>*Vanco IV + Zosyn ID RECOMMENDATIONS 1. Continue current ABX, await final micro 2. Per [employer]: ABX of choice for GCS is penicillin + adjunctive due to slow clinical response to PCN. * Continue Vanco IV for now due to excellent penetration into the bone + Zosyn. * Watch renal fx -> If renal fx deteriorates will change ABX. * Per literature review below: GCS Clindamycin resistance isolates and Quinolone resistance is noted. https://[email or web address].com/contents/elctn-u-unh-hdbus-w-upkxnwhjodeow-infection .TREATMENT Group C streptococci (GCS) and group G streptococci (GGS) are susceptible to beta-lactam antibiotics, and penicillin is considered the drug of choice for treatment of GCS and GGS infections [19,54,55]. Third-generation cephalosporins, such as cefotaxime and ceftriaxone, are also highly active and are suitable alternative agents. Although minimum inhibitory concentration (NELSON) values for penicillin are <0.03 mcg/mL for nearly all isolates, clinical response to treatment of endocarditis and other serious GCS and GGS infections is often slow. For this reason, addition of gentamicin (1 mg/kg every eight hours) is warranted as adjunctive therapy in these situations. By analogy to S. pyogenes infection, GCS and GGS necrotizing fasciitis and/or toxic shocklike syndrome is sometimes treated with clindamycin to enhance bacterial killing and to inhibit toxin production. Because some isolates are resistant to clindamycin, this agent should not be used alone for treatment of serious infection unless susceptibility of the isolate is known. For patients with a history of severe hypersensitivity reactions to beta-lactam antibiotics, vancomycin may be used. Linezolid is active in vitro, but clinical experience in treating GCS and GGS infections with this agent is limited. The prevalence of resistance to macrolides is highly variable but has been as high as 15 to 25 percent in certain geographic areas and is sometimes associated with inducible clindamycin resistance [55-57]. High-level resistance to fluoroquinolones has been described in a small percentage of clinical isolates [ 54,58]. . Problems: Consultation Date/Type/Reason Admit Date/Time Jan 31, 2017 at 18:37 Initial Consult Date Exam/Review of Systems Vital Signs Vitals Vital Signs Date Time Temp Pulse Resp B/P Pulse Ox O2 Delivery O2 Flow Rate FiO2 02/01/17 08:52 99.4 109 18 128/68 98 02/01/17 05:29 Nasal Cannula 2.0 Intake and Output 01/31/17 01/31/17 02/01/17 15:00 23:00 07:00 Intake Total 1800 ml 1475 ml Output Total 25 ml 2150 ml Balance 1775 ml -675 ml Results Result Diagram: 02/01/17 0502 02/01/17 0502 Results 24 hrs Laboratory Tests Test 01/31/17 15:25 01/31/17 16:12 01/31/17 18:47 01/31/17 19:21 Free Thyroxine 1.56 Bedside Glucose 311 H 247 H Prothrombin Time 16.1 H Prothrombin Time Ratio 1.3 INR International Normalized Ratio 1.27 Activated Partial Thromboplast Time 35.8 H Sodium Level 127 L Potassium Level 4.2 Chloride Level 96 L Carbon Dioxide Level 22 Anion Gap 13 Blood Urea Nitrogen 20 Creatinine 1.51 H Glucose Level 255 H Fasting Glucose 255 H Hemoglobin A1c 7.7 H Calcium Level 7.4 L Troponin I < 0.012 Test 01/31/17 20:35 02/01/17 02:04 02/01/17 05:02 02/01/17 05:03 Bedside Glucose 253 H 183 White Blood Count 21.0 H Red Blood Count 3.29 L Hemoglobin 9.8 L Hematocrit 28.2 L Mean Corpuscular Volume 85.7 Mean Corpuscular Hemoglobin 29.8 Mean Corpuscular Hemoglobin Concent 34.8 Red Cell Distribution Width 12.1 Platelet Count 203 Mean Platelet Volume 10.0 Neutrophils % 85.8 H Lymphocytes % 6.6 L Monocytes % 6.8 Eosinophils % 0.0 Basophils % 0.2 Nucleated Red Blood Cells % 0.0 Neutrophils # 18.0 H Lymphocytes # 1.4 Monocytes # 1.4 H Eosinophils # 0.0 Basophils # 0.1 Nucleated Red Blood Cells # 0.0 Sodium Level 133 L Potassium Level 3.8 Chloride Level 99 Carbon Dioxide Level 27 Anion Gap 11 Blood Urea Nitrogen 17 Creatinine 1.24 Glucose Level 184 Hemoglobin A1c 7.5 H Calcium Level 7.8 L Phosphorus Level 2.6 Magnesium Level 1.5 L Triglycerides Level 76 Cholesterol Level 98 L LDL Cholesterol, Calculated 61 HDL Cholesterol 22 L Cholesterol/HDL Ratio 4.4 Thyroid Stimulating Hormone (TSH) 2.300 Test 02/01/17 09:12 02/01/17 12:41 Bedside Glucose 189 181 Medications Medications Current Medications Ondansetron HCl (Zofran Inj) 4 mg Q6H PRN IV NAUSEA AND/OR VOMITING; Start 01/31/17 at 17:00 Acetaminophen (Tylenol Tab) 650 mg Q6H PRN PO PAIN LEVEL 1-3 OR FEVER Last administered on 01/31/17 17:10; Admin Dose 650 MG; Start 01/31/17 at 17:00 Acetaminophen/ Hydrocodone Bitart ([place] (5/325)) 1 tab Q6H PRN PO MODERATE PAIN LEVEL 4-6 Last administered on 02/01/17 02:07; Admin Dose 1 TAB; Start at 17:00 Morphine Sulfate (morphine) 2 mg Q4H PRN IV SEVERE PAIN LEVEL 7-10; Start 01/31 at 17:00 Docusate Sodium (Colace) 100 mg Q12H PRN PO CONSTIPATION; Start 01/31/17 at 17: 00 Magnesium Hydroxide (Milk Of Mag) 30 ml DAILY PRN PO CONSTIPATION; Start at 17:00 Sodium Biphosphate/ Sodium Phosphate (Fleet Enema) 133 ml DAILY PRN [place] CONSTIPATION; Start 01/31/17 at 17:00 Pantoprazole 40 mg 40 mg DAILY@06 PO Last administered on 02/01/17 06:15; Admin Dose 40 MG; Start 02/01/17 at 06:00 Sodium Chloride (1/2 NS) 1,000 ml @ 75 mls/hr [id number] IV Last administered on 01/31/17 21:26; Admin Dose 75 MLS/HR; Start 01/31/17 at 16:42 Lorazepam (Ativan) 0.5 mg Q6H PRN IV ANXIETY; Start 01/31/17 at 17:00 Hydralazine HCl (Apresoline) 10 mg Q6H PRN IV ELEVATED BLOOD PRESSURE; Start 01/31/17 at 17:00 Nitroglycerin (Nitroglycerin (Sl Tab) 0.4 Mg) 1 tab Q5M PRN SL ANGINA; Start 01/31/17 at 17:00 Diagnostic Test (Pha) (Accu-Chek) 1 ea 02 XX ; Start 02/01/17 at 02:00 Miscellaneous Information 1 ea NOTE XX ; Start 01/31/17 at 17:00 Glucose (Glutose) 15 gm Q15M PRN PO DECREASED GLUCOSE; Start 01/31/17 at 17:00 Glucose (Glutose) 22.5 gm Q15M PRN PO DECREASED GLUCOSE; Start 01/31/17 at 17: 00 Glucagon (Glucagen) 1 mg Q15M PRN IM DECREASED GLUCOSE; Start 01/31/17 at 17:00 Glucose (Glutose) 15 gm Q15M PRN BUCCAL DECREASED GLUCOSE; Start 01/31/17 at 17 :00 Heparin Sodium (Porcine) (Heparin (5000 Units/0.5 ml)) 5,000 unit Q8 SC Last administered on 02/01/17 06:22; Admin Dose 5,000 UNIT; Start 01/31/17 at 22:00 Dextrose (D50w Syringe) 50 ml Q15M PRN IV For BS 50 or less; Start 01/31/17 at 19:00 Dextrose 25 ml 25 ml Q15M PRN IV BS between 50-70; Start 01/31/17 at 19:00 Piperacillin Sod/ Tazobactam Sod 50 ml @ 100 mls/hr Q6 IVPB Last administered on 02/01/17 07:53; Admin Dose 100 MLS/HR; Start 02/01/17 at 07:00 Vancomycin HCl 1.75 gm/Sodium Chloride 500 ml @ 125 mls/hr ONCE@09 IVPB Last administered on 02/01/17 10:00; Admin Dose 125 MLS/HR; Start 02/01/17 at 09:00 ; Stop 02/01/17 at 16:00 Vancomycin HCl/ Sodium Chloride (Vancocin/NS) 250 ml @ 83.333 mls/ hr Q12H IVPB ; Start 02/01/17 at 21:00 Insulin Glargine (Lantus) 20 unit DAILY@20 SC ; Start 02/01/17 at 20:00 NNAMDI LOUISE NP Feb 01, 2017 13:44
[2017-02-01 15:20] VITALS: BP 132/70; RESP 18
[2017-02-01] MEDS: ACETAMINOPHEN 325 MG TAB PO PRN (16:07)
--- NOTE | 2017-02-01 16:21 | CONS ---
DATE OF ADMISSION: 01/31/2017 DATE OF CONSULTATION: 02/01/2017 TYPE OF CONSULTATION: Infectious Disease. REASON FOR CONSULTATION: Antibiotic management. HISTORY OF PRESENT ILLNESS: Ralf Mace is a 46-year-old male who comes in with signs of left jarvis t gangrene and is being seen for antibiotic management. Past problems include: 1. Adult-onset diabetes mellitus. 2. Left hip wound in the past. 3. Essential hypertension. 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 His symptoms h ave been going on for at least 3 days with fever and chills subjectively. He has no discharge from his foot, had a temperature of 103 degrees, heart rate 120. There is concern for gas gangrene of th e left foot presently. On admission, his white count is 21,000, H and H 9.8 and 28.2, platelet coun t 203,000. BUN and creatinine are 17/1.24 and hemoglobin A1c is 7.5. X-ray of the foot showed gas in the soft tissue overlying the third metatarsophalangeal joint, atherosclerosis, plantar calcaneal spur, possible lysis of the base of the 3rd proximal phalanx on the left foot. The patient was see n by Dr. Cordero, who did left foot radical incision and drainage for left foot gas gangrene. The wo und was foul smelling and the patient had fever and nausea. The patient was given Ancef and vancomy shekhar. He made a deep incision; purulent drainage was noted with deep space dissection of the wound. The wound so far is growing out group C strep. Patient is currently on vancomycin and Zosyn. PAST MEDICAL HISTORY: Operations as outlined. FAMILY HISTORY: Noncontributory. SOCIAL HISTORY: He does not smoke, drink or abuse drugs. ALLERGIES: NONE TO PENICILLIN, SULFA OR FOODS. MEDICATIONS: Per chart. REVIEW OF SYSTEMS: As per HPI. PHYSICAL EXAMINATION: GENERAL: The patient is a well-developed, well-nourished male who is alert, responsive, in no acute distress. VITAL SIGNS: Stable. He is afebrile. SKIN: Without generalized rash. HEENT: Within normal limits. NECK: Supple. LYMPH NODES: None palpable. CHEST: Decreased breath sounds at the bases. HEART: Without murmur or gallop. ABDOMEN: Soft, nontender, without organosplenomegaly or masses. EXTREMITIES: Without cyanosis, clubbing, or edema. There is now a bandage over the left foot with mild oozing through the bandage. RECTAL AND GENITAL: Deferred. NEUROLOGIC: No focal neurological abnormalities. The patient has multiple tattoos on his upper ext remities. IMPRESSION AND PLAN: The patient comes in with left foot pain and gas gangrene. An MRI of the left foot is pending, as to whether we are dealing with osteomyelitis. We will continue the antibiotics . Follow up on podiatry recommendations. I will dictate my findings to the hospitalist. Dictated By: REHAN ESTEVEZ MD, JD/ARLEEN Conf#: [id number] DID#: [id number] CC: JACOB CORDERO DPM;*End*
[2017-02-01] MEDS: VANCOMYCIN 1.25 GM in SOD CHLORIDE 0.9% 250 ML IVPB SCH (20:37)
[2017-02-01 21:04] VITALS: BP 130/80; RESP 18
[2017-02-01] MEDS: INSULIN GLARGINE [LANtus] 3 ML PEN SC SCH (21:19)
[2017-02-02 05:24] LABS: BASOPHILS % 0.3 % (0.0-2.0); EOSINOPHILS # 0.1 10^3/ul (0.0-0.5); EOSINOPHILS % 0.6 % (0.0-7.0); HEMATOCRIT 26.7 % (42.0-52.0); HEMOGLOBIN 9.4 g/dl (14.0-18.0); LYMPHOCYTES # 1.5 10^3/ul (0.8-2.9); LYMPHOCYTES % 10.6 % (15.0-51.0); MEAN CORPUSCULAR HEMOGLOBIN 30.6 pg (29.0-33.0); MEAN CORPUSCULAR HGB CONC 35.2 g/dl (32.0-37.0); MEAN PLATELET VOLUME 11.1 fl (7.4-10.4); MONOCYTE # 0.9 10^3/ul (0.3-0.9); MONOCYTES % 6.2 % (0.0-11.0); NEUTROPHIL # 11.7 10^3/ul (1.6-7.5); NEUTROPHILS % 81.7 % (39.0-77.0); PLATELET COUNT 166 10^3/UL (140-415); RED BLOOD COUNT 3.07 10^6/ul (4.70-6.10); RED CELL DISTRIBUTION WIDTH 12.1 % (11.5-14.5); WHITE BLOOD COUNT 14.3 10^3/ul (4.8-10.8)
[2017-02-02] MEDS: PANTOPRAZOLE (EC) 40 MG TAB PO SCH (05:26)
[2017-02-02] MEDS: PIPER-TAZO 2.25 GM (PMX) 50 ML IVPB SCH ×3 (05:26→18:01)
[2017-02-02] MEDS: HEPARIN 5,000 UNIT/0.5 ML VIAL SC SCH ×3 (05:34→20:52)
[2017-02-02 06:39] LABS: CALCIUM 7.5 mg/dl (8.4-10.2); CREATININE 1.13 mg/dl (0.61-1.24); POTASSIUM 4.1 mmol/L (3.5-5.1)
--- NOTE | 2017-02-02 07:56 | PN ---
Date/Time of Note Date/Time of Note DATE: 02/02/17 TIME: 07:51 Assessment/Plan Lines/Catheters IV Catheter Type (from Nrsg): Peripheral IV Freed in Place (from Nrsg): No Assessment/Plan Assessment/Plan 46 yo male with history of DM s/p Left foot emergent radical incision and drainage doing better. -Wound was flushed and dressing with Iodoform. Recommendations: -Continuing with IV antibiotics. -Continuing with dressing changes and flushing of left foot. -Patient is pending MRI of left foot. -Appreciate ID consult. -Patient wound need left foot 3rd digit and partial 3rd ray amp this week after MRI completed. -Will continue to follow. Subjective 24 Hr Interval Summary Patient seen bedside 2 days s/p emergent left foot incision and drainage for gas gangrene. Patient is doing well. Denies any fevers, chills, nausea or vomiting. He is awaiting MRI of left foot. He was seen by ID and appreciate recommendations. Exam/Review of Systems Vital Signs Vitals Vital Signs Date Time Temp Pulse Resp B/P Pulse Ox O2 Delivery O2 Flow Rate FiO2 02/01/17 21:33 98.6 02/01/17 21:04 99 18 130/80 96 02/01/17 05:29 Nasal Cannula 2.0 Intake and Output 02/01/17 02/01/17 02/02/17 15:00 23:00 07:00 Intake Total 600 ml 2440 ml 1750 ml Output Total 775 ml 1550 ml Balance 600 ml 1665 ml 200 ml Exam Free Text/Dictation Left foot dorsal and plantar incisions open. Very minimal drainage noted. Some necrotic tissue noted base of of left 3rd digit. Improving edema and erythema. Results Result Diagram: 02/02/17 0432 02/02/17 043 JACOB NUÑEZ DPM Feb 02, 2017 07:56
[2017-02-02 08:11] VITALS: BP 134/75; RESP 18
[2017-02-02] MEDS: SOD CHLORIDE 0.45% 1,000 ML IV SCH ×2 (08:27→18:42)
[2017-02-02] MEDS: VANCOMYCIN 1.25 GM in SOD CHLORIDE 0.9% 250 ML IVPB SCH ×2 (08:27→20:50)
[2017-02-02] MEDS: INSULIN ASPART [NOVOLOG] 3 ML PEN SC SCH ×7 (09:05→20:55)
--- NOTE | 2017-02-02 12:28 | PN ---
Date/Time of Note Date/Time of Note DATE: 02/02/17 TIME: 12:25 Assessment/Plan VTE Prophylaxis VTE Prophylaxis Intervention: heparin Lines/Catheters IV Catheter Type (from Nrs): Peripheral IV Urinary Cath still in place: No Assessment/Plan Chief Complaint/Hosp Course S: Patient seen by podiatry team this morning. MRI of the foot still not performed yet. Had fever yesterday. O: VS (see below) PE: General: Lying in bed, answer questions verbally, no acute distress HEENT: Pupils equal round reactive to light, extraocular muscles intact Neck: Supple Respiratory: Clear to auscultation bilaterally Cardiovascular: S1, S2 heard tachycardic heart rate Abdomen: Soft, nontender, nondistended, no rebound or guarding Muscular skeletal: Bandage over the left foot with mild oozing through the bandage with some odor, otherwise no lower extremity edema bilaterally Neurologic: No focal deficits Skin: Multiple skin tattoos on bilateral upper extremity's, no rashes noted Assessment and plan: 46-year-old male type 2 diabetes, left foot wound, essential hypertension, presents with left foot pain 3 days, with signs of left foot gas gangrene, that is post I&D postop day #2. 1. Left foot pain/gas gangrene: Status post incision and drainage postop day # 2. -Continue IV fluids and pain control medications. -Continue antibiotics, follow-up podiatry recommendations, f/u physical therapy as well -MRI of the left foot is pending as well -Follow-up ID recommendations 2. Type 2 diabetes -sugars have improved. Apparently he only takes metformin at home - continue sliding scale insulin. -Lantus and aspart with meals 3. Essential hypertension: Monitor blood pressure for now, hydralazine as needed 4. GI reflexes: PPI Problems: Exam/Review of Systems Vital Signs Vitals Vital Signs Date Time Temp Pulse Resp B/P Pulse Ox O2 Delivery O2 Flow Rate FiO2 02/02/17 08:11 99.9 98 18 134/75 93 02/01/17 05:29 Nasal Cannula 2.0 Intake and Output 02/01/17 02/01/17 02/02/17 14:59 22:59 06:59 Intake Total 600 ml 2440 ml 1750 ml Output Total 775 ml 1550 ml Balance 600 ml 1665 ml 200 ml Results Result Diagram: 02/02/17 0432 02/02/17 0432 Results 24 hrs Laboratory Tests Test 02/01/17 12:41 02/01/17 17:37 02/01/17 21:14 02/02/17 04:32 Bedside Glucose 181 235 H 115 White Blood Count 14.3 #H Red Blood Count 3.07 L Hemoglobin 9.4 L Hematocrit 26.7 L Mean Corpuscular Volume 87.0 Mean Corpuscular Hemoglobin 30.6 Mean Corpuscular Hemoglobin Concent 35.2 Red Cell Distribution Width 12.1 Platelet Count 166 Mean Platelet Volume 11.1 H Neutrophils % 81.7 H Lymphocytes % 10.6 L Monocytes % 6.2 Eosinophils % 0.6 Basophils % 0.3 Nucleated Red Blood Cells % 0.0 Neutrophils # 11.7 H Lymphocytes # 1.5 Monocytes # 0.9 Eosinophils # 0.1 Basophils # 0.0 Nucleated Red Blood Cells # 0.0 Sodium Level 132 L Potassium Level 4.1 Chloride Level 98 Carbon Dioxide Level 27 Anion Gap 11 Blood Urea Nitrogen 13 Creatinine 1.13 Glucose Level 180 Calcium Level 7.5 L Test 02/02/17 08:33 Bedside Glucose 175 Medications Medications Current Medications Ondansetron HCl (Zofran Inj) 4 mg Q6H PRN IV NAUSEA AND/OR VOMITING; Start 01/31/17 at 17:00 Acetaminophen (Tylenol Tab) 650 mg Q6H PRN PO PAIN LEVEL 1-3 OR FEVER Last administered on 02/01/17 16:07; Admin Dose 650 MG; Start 01/31/17 at 17:00 Acetaminophen/ Hydrocodone Bitart ([place] (5/325)) 1 tab Q6H PRN PO MODERATE PAIN LEVEL 4-6 Last administered on 02/01/17 16:05; Admin Dose 1 TAB; Start at 17:00 Morphine Sulfate (morphine) 2 mg Q4H PRN IV SEVERE PAIN LEVEL 7-10; Start 01/31 at 17:00 Docusate Sodium (Colace) 100 mg Q12H PRN PO CONSTIPATION; Start 01/31/17 at 17: 00 Magnesium Hydroxide (Milk Of Mag) 30 ml DAILY PRN PO CONSTIPATION; Start at 17:00 Sodium Biphosphate/ Sodium Phosphate (Fleet Enema) 133 ml DAILY PRN SC CONSTIPATION; Start 01/31/17 at 17:00 Pantoprazole 40 mg 40 mg DAILY@06 PO Last administered on 02/02/17 05:26; Admin Dose 40 MG; Start 02/01/17 at 06:00 Sodium Chloride (1/2 NS) 1,000 ml @ 75 mls/hr [id number] IV Last administered on 02/02/17 08:27; Admin Dose 75 MLS/HR; Start 01/31/17 at 16:42 Lorazepam (Ativan) 0.5 mg Q6H PRN IV ANXIETY; Start 01/31/17 at 17:00 Hydralazine HCl (Apresoline) 10 mg Q6H PRN IV ELEVATED BLOOD PRESSURE; Start 01/31/17 at 17:00 Nitroglycerin (Nitroglycerin (Sl Tab) 0.4 Mg) 1 tab Q5M PRN SL ANGINA; Start 01/31/17 at 17:00 Diagnostic Test (Pha) (Accu-Chek) 1 ea 02 XX ; Start 02/01/17 at 02:00 Miscellaneous Information 1 ea NOTE XX ; Start 01/31/17 at 17:00 Glucose (Glutose) 15 gm Q15M PRN PO DECREASED GLUCOSE; Start 01/31/17 at 17:00 Glucose (Glutose) 22.5 gm Q15M PRN PO DECREASED GLUCOSE; Start 01/31/17 at 17: 00 Glucagon (Glucagen) 1 mg Q15M PRN IM DECREASED GLUCOSE; Start 01/31/17 at 17:00 Glucose (Glutose) 15 gm Q15M PRN BUCCAL DECREASED GLUCOSE; Start 01/31/17 at 17 :00 Heparin Sodium (Porcine) (Heparin (5000 Units/0.5 ml)) 5,000 unit Q8 SC Last administered on 02/02/17 05:34; Admin Dose 5,000 UNIT; Start 01/31/17 at 22:00 Dextrose (D50w Syringe) 50 ml Q15M PRN IV For BS 50 or less; Start 01/31/17 at 19:00 Dextrose 25 ml 25 ml Q15M PRN IV BS between 50-70; Start 01/31/17 at 19:00 Vancomycin HCl/ Sodium Chloride (Vancocin/NS) 250 ml @ 83.333 mls/ hr Q12H IVPB Last administered on 02/02/17 08:27; Admin Dose 83.333 MLS/HR; Start at 21:00 Insulin Glargine 20 unit 20 unit DAILY@20 SC Last administered on 02/01/17 21: 19; Admin Dose 20 UNIT; Start 02/01/17 at 20:00 Piperacillin Sod/ Tazobactam Sod (Zosyn 2.25gm/ 50ml (Pmx)) 50 ml @ 100 mls/hr Q6 IVPB Last administered on 02/02/17 05:26; Admin Dose 100 MLS/HR; Start at 20:00 TIFFANIE ALANIS Feb 02, 2017 12:28
--- NOTE | 2017-02-02 12:49 | CONS ---
Date/Time of Note Date/Time of Note DATE: 02/02/17 TIME: 12:39 Assessment/Plan Assessment/Plan Chief Complaint/Hosp Course ID PROGRESS NOTE TOTAL ABX DAY #3 CURRENT ABX=> *Vanco IV + Zosyn * POD #2 => S/P Left foot incision and drainage 01/31/17 WOUND CX: WOUND CULTURE Preliminary STREPTOCOCCUS GROUP C * 02/02/17 0432 02/02/17 0432 24H INTERVAL SUMMARY * MRI is DOWN today -> Plan is for MRI Friday * He is coping well, tells me podiatry planning of further debridement once MRI resulted. * No fevers, pain present managed appropriately * 01/31/17 FOOT X-RAY: IMPRESSION: * 1. Plantar skin ulceration with extensive soft tissue gas centered at the third metatarsophalangeal joint suspicious for a necrotizing infection. * 2. Concern for osteomyelitis at the base of the third proximal phalanx and the head of the third metatarsal. Consider MRI for confirmation and to assess for extent of disease. EXAM GENERAL:46 yo obese M, A/A/O, VSS, polite, good historian, appears to be coping well HEENT: Unremarkable NECK: Supple, trachea midline. CHEST: Equal chest rise bilaterally, without dyspnea on observation HEART: Pulse RRR ABDOMEN: Soft, NT EXTREMITIES: Warm, LEFT foot DSG + JORDI wrap intact, not removed ID ASSESSMENT 46 yo admit with: 1. Sepsis w/SIRS criteria on admission including: Fevers > 104, tachycardia HR 133, leukocytosis (WBC 19.3 - 21.0) => IMPROVED 2. Acute gas gangrene diabetic foot ulcer * POD #2 => S/P 01/31/17 Left foot incision and drainage * 01/31/17 WOUND CX: WOUND CULTURE Preliminary Organism 1 STREPTOCOCCUS GROUP C QUANTITY 2+ 3. DMT2 w/complication of DM peripheral neuropathy * A1C @ 7.5 4. Acute vs CKD 5. Former tobacco -> QUIT ()MRSA Nares INVASIVES: PIV ABX ALLERGY: KNDA CURRENT ABX=>*Vanco IV + Zosyn ID RECOMMENDATIONS 1. Continue current ABX, await final micro => Looks like this is an osteomyelitis anticipate PICC w/ 6 weeks ABX * ESR/CRP ordered (ESR >/=90 highly correlated/suggestive of (+)Osteomyelitis) 2. Per [employer]: ABX of choice for GCS is penicillin + adjunctive due to slow clinical response to PCN. * Continue Vanco IV for now due to excellent penetration into the bone + Zosyn. * Watch renal fx -> If renal fx deteriorates will change ABX. * Per literature review below: GCS Clindamycin resistance isolates and Quinolone resistance BOTH noted. https://www.[employer]steres/contents/mmpnu-n-svx-psgnk-j-swgpaixdigalj-infection .TREATMENT Group C streptococci (GCS) and group G streptococci (GGS) are susceptible to beta-lactam antibiotics, and penicillin is considered the drug of choice for treatment of GCS and GGS infections [19,54,55]. Third-generation cephalosporins, such as cefotaxime and ceftriaxone, are also highly active and are suitable alternative agents. Although minimum inhibitory concentration (NELSON) values for penicillin are <0.03 mcg/mL for nearly all isolates, clinical response to treatment of endocarditis and other serious GCS and GGS infections is often slow. For this reason, addition of gentamicin (1 mg/kg every eight hours) is warranted as adjunctive therapy in these situations. By analogy to S. pyogenes infection, GCS and GGS necrotizing fasciitis and/or toxic shocklike syndrome is sometimes treated with clindamycin to enhance bacterial killing and to inhibit toxin production. Because some isolates are resistant to clindamycin, this agent should not be used alone for treatment of serious infection unless susceptibility of the isolate is known. For patients with a history of severe hypersensitivity reactions to beta-lactam antibiotics, vancomycin may be used. Linezolid is active in vitro, but clinical experience in treating GCS and GGS infections with this agent is limited. The prevalence of resistance to macrolides is highly variable but has been as high as 15 to 25 percent in certain geographic areas and is sometimes associated with inducible clindamycin resistance [55-57]. High-level resistance to fluoroquinolones has been described in a small percentage of clinical isolates [ 54,58]. ```````````````````````````````````````````````````````````````````````````````` ```````````````````````````````````````````````` . Problems: Consultation Date/Type/Reason Admit Date/Time Jan 31, 2017 at 18:37 Exam/Review of Systems Vital Signs Vitals Vital Signs Date Time Temp Pulse Resp B/P Pulse Ox O2 Delivery O2 Flow Rate FiO2 02/02/17 08:11 99.9 98 18 134/75 93 02/01/17 05:29 Nasal Cannula 2.0 Intake and Output 02/01/17 02/01/17 02/02/17 14:59 22:59 06:59 Intake Total 600 ml 2440 ml 1750 ml Output Total 775 ml 1550 ml Balance 600 ml 1665 ml 200 ml Results Result Diagram: 02/02/17 0432 02/02/17 0432 Results 24 hrs Laboratory Tests Test 02/01/17 12:41 02/01/17 17:37 02/01/17 21:14 02/02/17 04:32 Bedside Glucose 181 235 H 115 White Blood Count 14.3 #H Red Blood Count 3.07 L Hemoglobin 9.4 L Hematocrit 26.7 L Mean Corpuscular Volume 87.0 Mean Corpuscular Hemoglobin 30.6 Mean Corpuscular Hemoglobin Concent 35.2 Red Cell Distribution Width 12.1 Platelet Count 166 Mean Platelet Volume 11.1 H Neutrophils % 81.7 H Lymphocytes % 10.6 L Monocytes % 6.2 Eosinophils % 0.6 Basophils % 0.3 Nucleated Red Blood Cells % 0.0 Neutrophils # 11.7 H Lymphocytes # 1.5 Monocytes # 0.9 Eosinophils # 0.1 Basophils # 0.0 Nucleated Red Blood Cells # 0.0 Sodium Level 132 L Potassium Level 4.1 Chloride Level 98 Carbon Dioxide Level 27 Anion Gap 11 Blood Urea Nitrogen 13 Creatinine 1.13 Glucose Level 180 Calcium Level 7.5 L Test 02/02/17 08:33 02/02/17 12:28 Bedside Glucose 175 210 Medications Medications Current Medications Ondansetron HCl (Zofran Inj) 4 mg Q6H PRN IV NAUSEA AND/OR VOMITING; Start 01/31/17 at 17:00 Acetaminophen (Tylenol Tab) 650 mg Q6H PRN PO PAIN LEVEL 1-3 OR FEVER Last administered on 02/01/17 16:07; Admin Dose 650 MG; Start 01/31/17 at 17:00 Acetaminophen/ Hydrocodone Bitart ([place] (5/325)) 1 tab Q6H PRN PO MODERATE PAIN LEVEL 4-6 Last administered on 02/01/17 16:05; Admin Dose 1 TAB; Start at 17:00 Morphine Sulfate (morphine) 2 mg Q4H PRN IV SEVERE PAIN LEVEL 7-10; Start 01/31 at 17:00 Docusate Sodium (Colace) 100 mg Q12H PRN PO CONSTIPATION; Start 01/31/17 at 17: 00 Magnesium Hydroxide (Milk Of Mag) 30 ml DAILY PRN PO CONSTIPATION; Start at 17:00 Sodium Biphosphate/ Sodium Phosphate (Fleet Enema) 133 ml DAILY PRN [place] CONSTIPATION; Start 01/31/17 at 17:00 Pantoprazole 40 mg 40 mg DAILY@06 PO Last administered on 02/02/17 05:26; Admin Dose 40 MG; Start 02/01/17 at 06:00 Sodium Chloride (1/2 NS) 1,000 ml @ 75 mls/hr [id number] IV Last administered on 02/02/17 08:27; Admin Dose 75 MLS/HR; Start 01/31/17 at 16:42 Lorazepam (Ativan) 0.5 mg Q6H PRN IV ANXIETY; Start 01/31/17 at 17:00 Hydralazine HCl (Apresoline) 10 mg Q6H PRN IV ELEVATED BLOOD PRESSURE; Start 01/31/17 at 17:00 Nitroglycerin (Nitroglycerin (Sl Tab) 0.4 Mg) 1 tab Q5M PRN SL ANGINA; Start 01/31/17 at 17:00 Diagnostic Test (Pha) (Accu-Chek) 1 ea 02 XX ; Start 02/01/17 at 02:00 Miscellaneous Information 1 ea NOTE XX ; Start 01/31/17 at 17:00 Glucose (Glutose) 15 gm Q15M PRN PO DECREASED GLUCOSE; Start 01/31/17 at 17:00 Glucose (Glutose) 22.5 gm Q15M PRN PO DECREASED GLUCOSE; Start 01/31/17 at 17: 00 Glucagon (Glucagen) 1 mg Q15M PRN IM DECREASED GLUCOSE; Start 01/31/17 at 17:00 Glucose (Glutose) 15 gm Q15M PRN BUCCAL DECREASED GLUCOSE; Start 01/31/17 at 17 :00 Heparin Sodium (Porcine) (Heparin (5000 Units/0.5 ml)) 5,000 unit Q8 SC Last administered on 02/02/17 05:34; Admin Dose 5,000 UNIT; Start 01/31/17 at 22:00 Dextrose (D50w Syringe) 50 ml Q15M PRN IV For BS 50 or less; Start 01/31/17 at 19:00 Dextrose 25 ml 25 ml Q15M PRN IV BS between 50-70; Start 01/31/17 at 19:00 Vancomycin HCl/ Sodium Chloride (Vancocin/NS) 250 ml @ 83.333 mls/ hr Q12H IVPB Last administered on 02/02/17 08:27; Admin Dose 83.333 MLS/HR; Start at 21:00 Insulin Glargine 20 unit 20 unit DAILY@20 SC Last administered on 02/01/17 21: 19; Admin Dose 20 UNIT; Start 02/01/17 at 20:00 Piperacillin Sod/ Tazobactam Sod (Zosyn 2.25gm/ 50ml (Pmx)) 50 ml @ 100 mls/hr Q6 IVPB Last administered on 02/02/17 12:26; Admin Dose 100 MLS/HR; Start at 20:00 NNAMDI LOUISE NP Feb 02, 2017 12:49
[2017-02-02 14:30] VITALS: BP 141/82; RESP 18
[2017-02-02] MEDS: ACETAMINOPHEN 325 MG TAB PO PRN (15:53)
[2017-02-02 19:30] VITALS: BP_SYST 130; BP_SYST 170; BP_DIAS 75; RESP 18
[2017-02-02] MEDS: INSULIN GLARGINE [LANtus] 3 ML PEN SC SCH (20:17)
[2017-02-03] MEDS: PIPER-TAZO 2.25 GM (PMX) 50 ML IVPB SCH ×2 (00:12→06:35)
[2017-02-03 01:31] VITALS: BP 121/72; RESP 18
[2017-02-03] MEDS: ACCU-CHEK XX SCH ×2 (01:59→22:59)
[2017-02-03 05:14] LABS: BASOPHILS % 0.2 % (0.0-2.0); EOSINOPHILS # 0.2 10^3/ul (0.0-0.5); EOSINOPHILS % 1.4 % (0.0-7.0); HEMATOCRIT 25.7 % (42.0-52.0); HEMOGLOBIN 8.8 g/dl (14.0-18.0); LYMPHOCYTES # 1.6 10^3/ul (0.8-2.9); LYMPHOCYTES % 15.7 % (15.0-51.0); MEAN CORPUSCULAR HEMOGLOBIN 29.7 pg (29.0-33.0); MEAN CORPUSCULAR HGB CONC 34.2 g/dl (32.0-37.0); MEAN CORPUSCULAR VOLUME 86.8 fl (82.0-101.0); MONOCYTE # 0.9 10^3/ul (0.3-0.9); MONOCYTES % 8.4 % (0.0-11.0); NEUTROPHIL # 7.7 10^3/ul (1.6-7.5); NEUTROPHILS % 73.5 % (39.0-77.0); PLATELET COUNT 191 10^3/UL (140-415); RED BLOOD COUNT 2.96 10^6/ul (4.70-6.10); WHITE BLOOD COUNT 10.4 10^3/ul (4.8-10.8)
[2017-02-03 05:32] LABS: CALCIUM 7.8 mg/dl (8.4-10.2); CREATININE 1.11 mg/dl (0.61-1.24); POTASSIUM 4.1 mmol/L (3.5-5.1)
[2017-02-03] MEDS: PANTOPRAZOLE (EC) 40 MG TAB PO SCH (06:35)
[2017-02-03] MEDS: HEPARIN 5,000 UNIT/0.5 ML VIAL SC SCH ×3 (06:38→22:21)
--- NOTE | 2017-02-03 06:53 | PQ ---
Date/Time of Note Date/Time of Note DATE: 02/03/17 TIME: 06:45 Physician Query Clinical Documentation Clarification Dear , The Operative Report reflects a documentation of : Operation/Procedure Performed Left foot incision and drainage ...Incision dorsal 3rd met head made with 15 blade. Incision was deepen with blunt direction. Purulent drainage noted. Wound dorsally probed all the way down to ulcer sub 3rd met head. Plant ulcer was debrided and deep space blunt dissection of wound. More purulent drainage expressed from plantar aspect of left foot ulcer site. Wound debrided using rongeur, cultures sent from specimen.... All non viable and necrotic tissue was removed Based on your medical judgement (to facilitate accurate and complete coding) please clarify the precise type of debridement. ( X ) Excisional - The surgical removal or cutting away of tissue, necrosis, or slough. Use of a sharp instrument does not always indicate that an excisional debridement was performed. --- --------see scanned query 02/04 ( ) Non-excisional / Extraction (pulling or stripping by force) The non- operative brushing, irrigating, scrubbing, or washing of devitalized tissue, necrosis, slough, or foreign material. ( ) Destruction (physical eradication by direct use of energy/force/ destructive agent) Please provide your response by clicking edit document, making your choice ( x ), click ok/save and finally click sign. You may also document your response on your progress notes. Thank you for your time. With appreciation, Arun Griffin RN, BSN, CCS, CCDS Clinical Clinical Research Associate Health Information Management, CD[employer] and Coding Services [phone] Room # 1525 - [address]~ [id number] ARUN GRIFFIN Feb 03, 2017 06:53
[2017-02-03 08:02] VITALS: BP 131/74; RESP 18
[2017-02-03] MEDS: VANCOMYCIN 1.5 GM in SOD CHLORIDE 0.9% 250 ML IVPB SCH ×2 (08:35→20:39)
[2017-02-03] MEDS: INSULIN ASPART [NOVOLOG] 3 ML PEN SC SCH ×7 (08:44→20:50)
--- NOTE | 2017-02-03 13:17 | PN ---
Date/Time of Note Date/Time of Note DATE: 02/03/17 TIME: 13:13 Assessment/Plan VTE Prophylaxis VTE Prophylaxis Intervention: SCD's Lines/Catheters IV Catheter Type (from Nrs): Peripheral IV Urinary Cath still in place: No Assessment/Plan Assessment/Plan 46 yo M with DM2 admitted for sepsis from infected foot wound, possible OM PLAN MRI pending. cont empiric abx based on wound culture, GNR details pending. cont vanc appreciate podiatry assistance if OM, might need PICC, however OM might be amenable to surgical management/ resection cont BG control DM diet CM consult for PCP and outpatient pod f/u Subjective 24 Hr Interval Summary Free Text/Dictation pt sitting up in bed. 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 Exam/Review of Systems Vital Signs Vitals Vital Signs Date Time Temp Pulse Resp B/P Pulse Ox O2 Delivery O2 Flow Rate FiO2 02/03/17 08:02 98.6 89 18 131/74 93 02/01/17 05:29 Nasal Cannula 2.0 Intake and Output 02/02/17 02/02/17 02/03/17 14:59 22:59 06:59 Intake Total 850 ml 2450 ml 2300 ml Output Total 1600 ml 2200 ml Balance 850 ml 850 ml 100 ml Exam nad no mrg lungs clear abd soft no rashes a1c 7s MRI pending wound culture results noted Results Result Diagram: 02/03/17 0429 02/03/17 0429 Results 24 hrs Laboratory Tests Test 02/02/17 17:59 02/02/17 19:52 02/02/17 19:55 02/02/17 20:55 Bedside Glucose 152 176 137 Vancomycin Level Trough 11.7 Test 02/03/17 04:29 02/03/17 08:34 02/03/17 12:27 White Blood Count 10.4 # Red Blood Count 2.96 L Hemoglobin 8.8 L Hematocrit 25.7 L Mean Corpuscular Volume 86.8 Mean Corpuscular Hemoglobin 29.7 Mean Corpuscular Hemoglobin Concent 34.2 Red Cell Distribution Width 12.0 Platelet Count 191 Mean Platelet Volume 10.0 Neutrophils % 73.5 Lymphocytes % 15.7 Monocytes % 8.4 Eosinophils % 1.4 Basophils % 0.2 Nucleated Red Blood Cells % 0.0 Neutrophils # 7.7 H Lymphocytes # 1.6 Monocytes # 0.9 Eosinophils # 0.2 Basophils # 0.0 Nucleated Red Blood Cells # 0.0 Erythrocyte Sedimentation Rate 115 H Sodium Level 136 Potassium Level 4.1 Chloride Level 101 Carbon Dioxide Level 29 Anion Gap 10 Blood Urea Nitrogen 10 Creatinine 1.11 Glucose Level 171 Calcium Level 7.8 L C-Reactive Protein 19.0 H Bedside Glucose 149 179 Medications Medications Current Medications Ondansetron HCl (Zofran Inj) 4 mg Q6H PRN IV NAUSEA AND/OR VOMITING; Start 01/31/17 at 17:00 Acetaminophen (Tylenol Tab) 650 mg Q6H PRN PO PAIN LEVEL 1-3 OR FEVER Last administered on 02/02/17 15:53; Admin Dose 650 MG; Start 01/31/17 at 17:00 Acetaminophen/ Hydrocodone Bitart ([place] (5/325)) 1 tab Q6H PRN PO MODERATE PAIN LEVEL 4-6 Last administered on 02/01/17 16:05; Admin Dose 1 TAB; Start at 17:00 Morphine Sulfate (morphine) 2 mg Q4H PRN IV SEVERE PAIN LEVEL 7-10; Start 01/31 at 17:00 Docusate Sodium (Colace) 100 mg Q12H PRN PO CONSTIPATION; Start 01/31/17 at 17: 00 Magnesium Hydroxide (Milk Of Mag) 30 ml DAILY PRN PO CONSTIPATION; Start at 17:00 Sodium Biphosphate/ Sodium Phosphate (Fleet Enema) 133 ml DAILY PRN [place] CONSTIPATION; Start 01/31/17 at 17:00 Hydralazine HCl (Apresoline) 10 mg Q6H PRN IV ELEVATED BLOOD PRESSURE; Start 01/31/17 at 17:00 Nitroglycerin (Nitroglycerin (Sl Tab) 0.4 Mg) 1 tab Q5M PRN SL ANGINA; Start 01/31/17 at 17:00 Diagnostic Test (Pha) (Accu-Chek) 1 ea 02 XX ; Start 02/01/17 at 02:00 Miscellaneous Information 1 ea NOTE XX ; Start 01/31/17 at 17:00 Glucose (Glutose) 15 gm Q15M PRN PO DECREASED GLUCOSE; Start 01/31/17 at 17:00 Glucose (Glutose) 22.5 gm Q15M PRN PO DECREASED GLUCOSE; Start 01/31/17 at 17: 00 Glucagon (Glucagen) 1 mg Q15M PRN IM DECREASED GLUCOSE; Start 01/31/17 at 17:00 Glucose (Glutose) 15 gm Q15M PRN BUCCAL DECREASED GLUCOSE; Start 01/31/17 at 17 :00 Heparin Sodium (Porcine) (Heparin (5000 Units/0.5 ml)) 5,000 unit Q8 SC Last administered on 02/03/17 06:38; Admin Dose 5,000 UNIT; Start 01/31/17 at 22:00 Dextrose (D50w Syringe) 50 ml Q15M PRN IV For BS 50 or less; Start 01/31/17 at 19:00 Dextrose (D50w Syringe) 25 ml Q15M PRN IV BS between 50-70; Start 01/31/17 at 19:00 Insulin Glargine 20 unit 20 unit DAILY@20 SC Last administered on 02/02/17 20 :17; Admin Dose 20 UNIT; Start 02/01/17 at 20:00 Vancomycin HCl/ Sodium Chloride (Vancocin/NS) 250 ml @ 83.333 mls/ hr Q12H IVPB Last administered on 02/03/17 08:35; Admin Dose 83.333 MLS/HR; Start at 08:00 Levofloxacin 750 mg 750 mg DAILY@06 PO ; Start 02/04/17 at 06:00; Status UNV Piperacillin Sod/ Tazobactam Sod (Zosyn 3.375gm/ 50 ml (Pmx)) 50 ml @ 100 mls/ hr Q8 IVPB ; Start 02/03/17 at 14:00 KERRY MAYER MD Feb 03, 2017 13:17
--- NOTE | 2017-02-03 13:21 | PN ---
Date/Time of Note Date/Time of Note DATE: 02/03/17 TIME: 13:12 Assessment/Plan Lines/Catheters IV Catheter Type (from Nrs): Peripheral IV Freed in Place (from Nrs): No Assessment/Plan Assessment/Plan 46 yo male 3 days s/p Left foot emergent incision and drainage for left foot gas gangrene doing better. Wound was flushed, packed and appropriate dressing applied to the left foot. Patient is pending MRI. He is scheduled for left foot 3rd digit and partial 3rd ray amp with delayed closure on at 5 PM. Patient needs to be NPO Wed starting midnight. All anticoagulants including Heparin needs to be stopped night prior to surgery. Recommendations: -Appreciate ID recommendations. Patient to continue with IV antibiotics, he would need PICC line, even post upcoming surgery. -Appreciate Med team care of patient. -Nursing orders for daily left foot flushing and packing with Iodoform. -Patient needs to be partial weight bearing in post/op shoe. -Will continue to follow. Subjective 24 Hr Interval Summary Patient seen bedside 3 days s/p Left foot emergent incision and drainage of left foot gas gangrene. Patient is doing better. Denies any fevers, chills, nausea or vomiting. He is on IV antibiotics. MRI of left foot has not been completed. Exam/Review of Systems Vital Signs Vitals Vital Signs Date Time Temp Pulse Resp B/P Pulse Ox O2 Delivery O2 Flow Rate FiO2 02/03/17 08:02 98.6 89 18 131/74 93 02/01/17 05:29 Nasal Cannula 2.0 Intake and Output 02/02/17 02/02/17 02/03/17 15:00 23:00 07:00 Intake Total 850 ml 2450 ml 2300 ml Output Total 1600 ml 2200 ml Balance 850 ml 850 ml 100 ml Exam Free Text/Dictation Patient is alert and oriented. Left foot decreased swelling noted. Incision dorsal and plantar left foot open with decreased foul smell. No significant drainage of left foot noted. Left foot 3rd metatarsal and 3rd digit bone discoloration noted. No proximal streaking noted. Results Result Diagram: 02/03/17 0429 02/03/17 0429 JACOB NUÑEZ DPM Feb 03, 2017 13:21
[2017-02-03] MEDS: PIPER-TAZO 3.375 GM IV (PMX) 50 ML IVPB SCH ×2 (13:54→22:16)
--- NOTE | 2017-02-03 14:01 | PN ---
DATE: 02/03/2017 SUBJECTIVE: No acute events overnight. The patient is alert, looks comfortable. Denies pain. He had been afebrile, T-max over the last 24 hours was 100.2, T-current 98.6. LABORATORY DATA: WBC today 10.4, no shift, no bands. ESR today 115, BUN 10, creatinine 1.1. MICROBIOLOGY: Left foot wound culture grew strep group C., Corynebacterium and gram-negative rods. No anaerobes. ANTIMICROBIALS: The patient is on IV vancomycin, status post Zosyn being discontinued. PHYSICAL EXAMINATION: GENERAL: This is an obese, well-developed, middle-aged man who is awake, in no distress. HEENT: Head atraumatic, normocephalic. Sclerae anicteric. Buccal mucosa pink. NECK: Supple. CHEST: Rise symmetrical. Breath sounds diminished to bases. HEART: S1, S2. ABDOMEN: Soft, bowel tones present. EXTREMITIES: Left foot dressing intact. ASSESSMENT: 1. Left foot gas gangrene, status post incision and drainage on 01/31/2017, final cultures pending. 2. Diabetes mellitus. 3. Obesity. 4. Questionable chronic kidney disease, status post acute renal failure on admission. PLAN: We will continue patient on Zosyn and vancomycin until final cultures are back. Await for MR I. Follow podiatry recommendations. Dictated By: GIANNA HENRY INTERNAL AUDIT SENIOR MANAGER for REHAN MUNSON/NTS Conf#: [id number] DID#: [id number]
[2017-02-03 14:37] VITALS: BP 165/91; RESP 18
[2017-02-03 16:06] LABS: MICROALBUMIN 3.8 mg/dL
[2017-02-03] MEDS: HYDROCODONE/APAP (5/325) TAB PO PRN (16:24)
[2017-02-03] MEDS ORDERED: LEVOFLOXACIN 750 MG TABLET PO SCH (18:00)
[2017-02-03 20:20] VITALS: BP 159/84; RESP 20
[2017-02-03] MEDS: INSULIN GLARGINE [LANtus] 3 ML PEN SC SCH (20:49)
[2017-02-04 02:15] VITALS: BP 128/68; RESP 18
[2017-02-04 05:02] LABS: BASOPHILS % 0.4 % (0.0-2.0); EOSINOPHILS # 0.2 10^3/ul (0.0-0.5); EOSINOPHILS % 1.9 % (0.0-7.0); HEMATOCRIT 26.5 % (42.0-52.0); HEMOGLOBIN 8.9 g/dl (14.0-18.0); LYMPHOCYTES % 18.6 % (15.0-51.0); MEAN CORPUSCULAR HEMOGLOBIN 29.2 pg (29.0-33.0); MEAN CORPUSCULAR HGB CONC 33.6 g/dl (32.0-37.0); MEAN CORPUSCULAR VOLUME 86.9 fl (82.0-101.0); MEAN PLATELET VOLUME 9.6 fl (7.4-10.4); MONOCYTES % 8.9 % (0.0-11.0); NEUTROPHIL # 7.4 10^3/ul (1.6-7.5); NEUTROPHILS % 68.7 % (39.0-77.0); PLATELET COUNT 226 10^3/UL (140-415); RED BLOOD COUNT 3.05 10^6/ul (4.70-6.10); RED CELL DISTRIBUTION WIDTH 11.9 % (11.5-14.5); WHITE BLOOD COUNT 10.7 10^3/ul (4.8-10.8)
[2017-02-04 05:37] LABS: CREATININE 1.19 mg/dl (0.61-1.24)
[2017-02-04] MEDS: PIPER-TAZO 3.375 GM IV (PMX) 50 ML IVPB SCH ×3 (05:49→22:00)
[2017-02-04] MEDS: HEPARIN 5,000 UNIT/0.5 ML VIAL SC SCH ×3 (05:53→22:19)
[2017-02-04 08:12] VITALS: BP 167/94; RESP 18
[2017-02-04] MEDS: VANCOMYCIN 1.5 GM in SOD CHLORIDE 0.9% 250 ML IVPB SCH ×2 (08:16→21:52)
[2017-02-04] MEDS: INSULIN ASPART [NOVOLOG] 3 ML PEN SC SCH ×7 (09:25→21:00)
[2017-02-04] MEDS: HYDROCODONE/APAP (5/325) TAB PO PRN ×2 (12:27→22:15)
--- NOTE | 2017-02-04 12:27 | PN ---
Date/Time of Note Date/Time of Note DATE: 02/04/17 TIME: 12:26 Assessment/Plan VTE Prophylaxis VTE Prophylaxis Intervention: SCD's Lines/Catheters IV Catheter Type (from Nrs): Peripheral IV Urinary Cath still in place: No Assessment/Plan Assessment/Plan 46 yo M with DM2 admitted for sepsis from infected foot wound, possible OM PLAN MRI pending. cont empiric abx based on wound culture, GNR speciated but sensitivities pending. cont vanc appreciate podiatry assistance if OM, might need PICC, however OM might be amenable to surgical management/ resection cont BG control. a1c 7.5. will add SFU at discharge DM diet CM consult for PCP and outpatient pod f/u Subjective 24 Hr Interval Summary Free Text/Dictation MRI still hasn't been done. Patient states he does NOT want to do insulin at home but is amenable to increasing PO med intensity, also very motivated to improve his diet Exam/Review of Systems Vital Signs Vitals Vital Signs Date Time Temp Pulse Resp B/P Pulse Ox O2 Delivery O2 Flow Rate FiO2 02/04/17 08:12 98.0 85 18 167/94 92 02/01/17 05:29 Nasal Cannula 2.0 Intake and Output 02/03/17 02/03/17 02/04/17 15:00 23:00 07:00 Intake Total 725 ml 2480 ml 1200 ml Output Total 1975 ml 1600 ml Balance 725 ml 505 ml -400 ml Exam nad no mrg lungs clear abd soft foot wrapped Results Result Diagram: 02/04/17 0422 02/04/17 0422 Results 24 hrs Laboratory Tests Test 02/03/17 12:27 02/03/17 17:28 02/03/17 20:38 02/04/17 04:22 Bedside Glucose 179 140 167 White Blood Count 10.7 Red Blood Count 3.05 L Hemoglobin 8.9 L Hematocrit 26.5 L Mean Corpuscular Volume 86.9 Mean Corpuscular Hemoglobin 29.2 Mean Corpuscular Hemoglobin Concent 33.6 Red Cell Distribution Width 11.9 Platelet Count 226 Mean Platelet Volume 9.6 Neutrophils % 68.7 Lymphocytes % 18.6 Monocytes % 8.9 Eosinophils % 1.9 Basophils % 0.4 Nucleated Red Blood Cells % 0.0 Neutrophils # 7.4 Lymphocytes # 2.0 Monocytes # 1.0 H Eosinophils # 0.2 Basophils # 0.0 Nucleated Red Blood Cells # 0.0 Sodium Level 135 Potassium Level 4.0 Chloride Level 98 Carbon Dioxide Level 31 Anion Gap 10 Blood Urea Nitrogen 10 Creatinine 1.19 Glucose Level 171 Calcium Level 8.0 L Test 02/04/17 08:27 Bedside Glucose 156 Medications Medications Current Medications Ondansetron HCl (Zofran Inj) 4 mg Q6H PRN IV NAUSEA AND/OR VOMITING; Start 01/31/17 at 17:00 Acetaminophen (Tylenol Tab) 650 mg Q6H PRN PO PAIN LEVEL 1-3 OR FEVER Last administered on 02/02/17 15:53; Admin Dose 650 MG; Start 01/31/17 at 17:00 Acetaminophen/ Hydrocodone Bitart ([place] (5/325)) 1 tab Q6H PRN PO MODERATE PAIN LEVEL 4-6 Last administered on 02/03/17 16:24; Admin Dose 1 TAB; Start 01/31/17 at 17:00 Docusate Sodium (Colace) 100 mg Q12H PRN PO CONSTIPATION; Start 01/31/17 at 17: 00 Magnesium Hydroxide (Milk Of Mag) 30 ml DAILY PRN PO CONSTIPATION; Start at 17:00 Sodium Biphosphate/ Sodium Phosphate (Fleet Enema) 133 ml DAILY PRN [place] CONSTIPATION; Start 01/31/17 at 17:00 Nitroglycerin (Nitroglycerin (Sl Tab) 0.4 Mg) 1 tab Q5M PRN SL ANGINA; Start 01/31/17 at 17:00 Diagnostic Test (Pha) (Accu-Chek) 1 ea 02 XX ; Start 02/01/17 at 02:00 Miscellaneous Information 1 ea NOTE XX ; Start 01/31/17 at 17:00 Glucose (Glutose) 15 gm Q15M PRN PO DECREASED GLUCOSE; Start 01/31/17 at 17:00 Glucose (Glutose) 22.5 gm Q15M PRN PO DECREASED GLUCOSE; Start 01/31/17 at 17: 00 Glucagon (Glucagen) 1 mg Q15M PRN IM DECREASED GLUCOSE; Start 01/31/17 at 17:00 Glucose (Glutose) 15 gm Q15M PRN BUCCAL DECREASED GLUCOSE; Start 01/31/17 at 17 :00 Heparin Sodium (Porcine) (Heparin (5000 Units/0.5 ml)) 5,000 unit Q8 SC Last administered on 02/04/17 05:53; Admin Dose 5,000 UNIT; Start 01/31/17 at 22:00 Dextrose (D50w Syringe) 50 ml Q15M PRN IV For BS 50 or less; Start 01/31/17 at 19:00 Dextrose (D50w Syringe) 25 ml Q15M PRN IV BS between 50-70; Start 01/31/17 at 19:00 Insulin Glargine 20 unit 20 unit DAILY@20 SC Last administered on 02/03/17 20 :49; Admin Dose 20 UNIT; Start 02/01/17 at 20:00 Vancomycin HCl 1.5 gm/Sodium Chloride 250 ml @ 83.333 mls/ hr Q12H IVPB Last administered on 02/04/17 08:16; Admin Dose 83.333 MLS/HR; Start 02/03/17 at 08:00 Piperacillin Sod/ Tazobactam Sod (Zosyn 3.375gm/ 50 ml (Pmx)) 50 ml @ 100 mls/ hr Q8 IVPB Last administered on 02/04/17 05:49; Admin Dose 100 MLS/HR; Start 02/03/17 at 14:00 KERRY MAYER MD Feb 04, 2017 12:27
--- NOTE | 2017-02-04 14:24 | RADRPT ---
Vent Rate: 125 bpm RR Interval: 0 msec DC Interval: 140 msec QRS Duration: 80 msec QT Interval: 312 msec QTC Interval: 450 msec P-R-T [place]: 35 - -1 - 49 degrees Sinus tachycardia with premature supraventricular complexes Otherwise normal ECG Electronically Signed By: John Reece [id number]
--- NOTE | 2017-02-04 14:33 | CONS ---
Date/Time of Note Date/Time of Note DATE: 02/04/17 TIME: 14:31 Assessment/Plan Assessment/Plan Chief Complaint/Hosp Course SUBJECTIVE: No acute events overnight. The patient is alert, looks comfortable. Denies pain. No fevers MICROBIOLOGY: Wound culture growing out collagenous faecalis species, Corynebacterium and streptococcus group C. Final sensitivities pending ANTIMICROBIALS: The patient is on IV vancomycin, Zosyn PHYSICAL EXAMINATION: GENERAL: This is an obese, well-developed, middle-aged man who is awake, in no distress. HEENT: Head atraumatic, normocephalic. Sclerae anicteric. Buccal mucosa pink. NECK: Supple. CHEST: Rise symmetrical. Breath sounds diminished to bases. HEART: S1, S2. ABDOMEN: Soft, bowel tones present. EXTREMITIES: Left foot dressing intact. ASSESSMENT: 1. Left foot gas gangrene, status post incision and drainage on 01/31/2017, final cultures pending. 2. Diabetes mellitus. 3. Obesity. 4. Questionable chronic kidney disease, status post acute renal failure on admission. PLAN: Remains stable, continue antibiotics. Await for MRI. Follow podiatry recommendations. Discussed with staff Problems: Consultation Date/Type/Reason Admit Date/Time Jan 31, 2017 at 18:37 Initial Consult Date Type of Consultation: ID Exam/Review of Systems Vital Signs Vitals Vital Signs Date Time Temp Pulse Resp B/P Pulse Ox O2 Delivery O2 Flow Rate FiO2 02/04/17 08:12 98.0 85 18 167/94 92 02/01/17 05:29 Nasal Cannula 2.0 Intake and Output 02/03/17 02/03/17 02/04/17 15:00 23:00 07:00 Intake Total 725 ml 2480 ml 1200 ml Output Total 1975 ml 1600 ml Balance 725 ml 505 ml -400 ml Results Result Diagram: 02/04/17 0422 02/04/17 0422 Results 24 hrs Laboratory Tests Test 02/03/17 17:28 02/03/17 20:38 02/04/17 04:22 02/04/17 08:27 Bedside Glucose 140 167 156 White Blood Count 10.7 Red Blood Count 3.05 L Hemoglobin 8.9 L Hematocrit 26.5 L Mean Corpuscular Volume 86.9 Mean Corpuscular Hemoglobin 29.2 Mean Corpuscular Hemoglobin Concent 33.6 Red Cell Distribution Width 11.9 Platelet Count 226 Mean Platelet Volume 9.6 Neutrophils % 68.7 Lymphocytes % 18.6 Monocytes % 8.9 Eosinophils % 1.9 Basophils % 0.4 Nucleated Red Blood Cells % 0.0 Neutrophils # 7.4 Lymphocytes # 2.0 Monocytes # 1.0 H Eosinophils # 0.2 Basophils # 0.0 Nucleated Red Blood Cells # 0.0 Sodium Level 135 Potassium Level 4.0 Chloride Level 98 Carbon Dioxide Level 31 Anion Gap 10 Blood Urea Nitrogen 10 Creatinine 1.19 Glucose Level 171 Calcium Level 8.0 L Test 02/04/17 12:29 Bedside Glucose 139 Medications Medications Current Medications Ondansetron HCl (Zofran Inj) 4 mg Q6H PRN IV NAUSEA AND/OR VOMITING; Start 01/31/17 at 17:00 Acetaminophen (Tylenol Tab) 650 mg Q6H PRN PO PAIN LEVEL 1-3 OR FEVER Last administered on 02/02/17 15:53; Admin Dose 650 MG; Start 01/31/17 at 17:00 Acetaminophen/ Hydrocodone Bitart ([place] (5/325)) 1 tab Q6H PRN PO MODERATE PAIN LEVEL 4-6 Last administered on 02/04/17 12:27; Admin Dose 1 TAB; Start 01/31/17 at 17:00 Docusate Sodium (Colace) 100 mg Q12H PRN PO CONSTIPATION; Start 01/31/17 at 17: 00 Magnesium Hydroxide (Milk Of Mag) 30 ml DAILY PRN PO CONSTIPATION; Start at 17:00 Sodium Biphosphate/ Sodium Phosphate (Fleet Enema) 133 ml DAILY PRN [place] CONSTIPATION; Start 01/31/17 at 17:00 Nitroglycerin (Nitroglycerin (Sl Tab) 0.4 Mg) 1 tab Q5M PRN SL ANGINA; Start 01/31/17 at 17:00 Diagnostic Test (Pha) (Accu-Chek) 1 ea 02 XX ; Start 02/01/17 at 02:00 Miscellaneous Information 1 ea NOTE XX ; Start 01/31/17 at 17:00 Glucose (Glutose) 15 gm Q15M PRN PO DECREASED GLUCOSE; Start 01/31/17 at 17:00 Glucose (Glutose) 22.5 gm Q15M PRN PO DECREASED GLUCOSE; Start 01/31/17 at 17: 00 Glucagon (Glucagen) 1 mg Q15M PRN IM DECREASED GLUCOSE; Start 01/31/17 at 17:00 Glucose (Glutose) 15 gm Q15M PRN BUCCAL DECREASED GLUCOSE; Start 01/31/17 at 17 :00 Heparin Sodium (Porcine) (Heparin (5000 Units/0.5 ml)) 5,000 unit Q8 SC Last administered on 02/04/17 05:53; Admin Dose 5,000 UNIT; Start 01/31/17 at 22:00 Dextrose (D50w Syringe) 50 ml Q15M PRN IV For BS 50 or less; Start 01/31/17 at 19:00 Dextrose (D50w Syringe) 25 ml Q15M PRN IV BS between 50-70; Start 01/31/17 at 19:00 Insulin Glargine 20 unit 20 unit DAILY@20 SC Last administered on 02/03/17 20 :49; Admin Dose 20 UNIT; Start 02/01/17 at 20:00 Vancomycin HCl 1.5 gm/Sodium Chloride 250 ml @ 83.333 mls/ hr Q12H IVPB Last administered on 02/04/17 08:16; Admin Dose 83.333 MLS/HR; Start 02/03/17 at 08:00 Piperacillin Sod/ Tazobactam Sod (Zosyn 3.375gm/ 50 ml (Pmx)) 50 ml @ 100 mls/ hr Q8 IVPB Last administered on 02/04/17 05:49; Admin Dose 100 MLS/HR; Start 02/03/17 at 14:00 Miscellaneous Information (*Rx Drug Level Order Reminder*) 1 ONCE ONCE XX ; Start 02/04/17 at 19:00; Stop 02/04/17 at 19:01 GIANNA HENRY NP Feb 04, 2017 14:33
[2017-02-04 15:49] VITALS: BP 142/79; RESP 20
[2017-02-04 19:25] VITALS: BP 179/88; RESP 20
[2017-02-04] MEDS: INSULIN GLARGINE [LANtus] 3 ML PEN SC SCH (20:30)
[2017-02-04 21:20] VITALS: BP 128/74; PULSE 70; RESP 18
--- NOTE | 2017-02-04 22:46 | RADRPT ---
PROCEDURE: MR LEFT FOOT WITHOUT CONTRAST CLINICAL INDICATION: 46-year of age, male. Left foot gas gangrene. Diabetes. Postop of with skin g raft. Evaluate for osteomyelitis. TECHNIQUE: MR of the left foot was performed without contrast. The following sequences were obtain ed: Sagittal T1 SE and STIR FSE; Axial T1 SE and T2 FSE with fat saturation; Coronal T1 FSE and STIR . COMPARISON: Left foot x-rays February 01, 2017 FINDINGS: There has been debridement of the soft tissues at the dorsal and plantar aspects of the third MTP basliio int with soft tissue defects extending to bone. There is irregularity of the contour of the third me tatarsal head and the base of the third proximal phalanx with mild bone marrow edema on STIR and low signal intensity areas on T1 that may indicate osteomyelitis. The debridement likely extends to th e joint capsule. Negative for evidence of a joint effusion of the third MTP joint. The remaining bones of the forefoot are normal in signal intensity without evidence of osteomyelitis . There are joint effusions at the MTP joints of the first, second and fourth toes. There is edema in the deep muscular compartment at the dorsal and plantar aspects of the forefoot th at may be due to soft tissue infection. Without intravenous contrast, the study is limited in evalua ting for microabscesses. There is also extensive edema in the subcutaneous fat. Flexor and extensor tendons at the third toe are debrided. Remaining flexor tendons and extensor ten dons are unremarkable. There is nodular thickening of the plantar fascia overlying the tarsometatarsal joints that may repr esent focal fibromatosis. Lisfranc ligament is intact. IMPRESSION: 1. Status post extensive soft tissue debridement at the dorsal and plantar aspects of the third MTP joint extending to the joint capsule. There is contour irregularity of the head of the third metatar pearl and the base of the third proximal phalanx with altered bone marrow signal intensity concerning for osteomyelitis. Negative for evidence of osteomyelitis elsewhere in the forefoot. 2. Soft tissue edema involving the superficial and deep fascial compartments of the forefoot is conc erning for soft tissue infection. Without intravenous contrast, the study is limited in evaluating f or microabscesses. 3. Small joint effusions involving the first, second and fourth MTP joints. RPTAT: HCTS Jose Joy, Physician Date Time Electronically viewed and signed by Jose Joy, Physician on 02/04/2017 22:46 CS/
[2017-02-05] MEDS: ACCU-CHEK XX SCH (01:13)
[2017-02-05 02:15] VITALS: BP 139/74; RESP 18
[2017-02-05 05:52] LABS: BASOPHILS % 0.3 % (0.0-2.0); EOSINOPHILS # 0.2 10^3/ul (0.0-0.5); EOSINOPHILS % 1.6 % (0.0-7.0); HEMATOCRIT 27.3 % (42.0-52.0); HEMOGLOBIN 9.2 g/dl (14.0-18.0); LYMPHOCYTES # 2.2 10^3/ul (0.8-2.9); LYMPHOCYTES % 17.1 % (15.0-51.0); MEAN CORPUSCULAR HEMOGLOBIN 29.4 pg (29.0-33.0); MEAN CORPUSCULAR HGB CONC 33.7 g/dl (32.0-37.0); MEAN CORPUSCULAR VOLUME 87.2 fl (82.0-101.0); MEAN PLATELET VOLUME 9.5 fl (7.4-10.4); MONOCYTE # 1.2 10^3/ul (0.3-0.9); MONOCYTES % 9.3 % (0.0-11.0); NEUTROPHIL # 8.8 10^3/ul (1.6-7.5); NEUTROPHILS % 68.8 % (39.0-77.0); PLATELET COUNT 262 10^3/UL (140-415); RED BLOOD COUNT 3.13 10^6/ul (4.70-6.10); RED CELL DISTRIBUTION WIDTH 11.9 % (11.5-14.5); WHITE BLOOD COUNT 12.8 10^3/ul (4.8-10.8)
[2017-02-05] MEDS: PIPER-TAZO 3.375 GM IV (PMX) 50 ML IVPB SCH ×2 (06:04→15:18)
[2017-02-05] MEDS: HEPARIN 5,000 UNIT/0.5 ML VIAL SC SCH (06:09)
[2017-02-05 06:22] LABS: CALCIUM 8.3 mg/dl (8.4-10.2); CREATININE 1.26 mg/dl (0.61-1.24); POTASSIUM 4.3 mmol/L (3.5-5.1)
[2017-02-05 07:37] VITALS: BP 179/90; RESP 18
[2017-02-05] MEDS: INSULIN ASPART [NOVOLOG] 3 ML PEN SC SCH ×7 (07:50→20:52)
[2017-02-05] MEDS: ACETAMINOPHEN 325 MG TAB PO PRN (07:51)
[2017-02-05] MEDS: VANCOMYCIN 1.5 GM in SOD CHLORIDE 0.9% 250 ML IVPB SCH ×2 (08:51→19:47)
--- NOTE | 2017-02-05 12:19 | PN ---
Date/Time of Note Date/Time of Note DATE: 02/05/17 TIME: 12:12 Assessment/Plan Lines/Catheters IV Catheter Type (from Nrsg): Peripheral IV Freed in Place (from Nrsg): No Assessment/Plan Assessment/Plan 46 yo male with history of DM 5 days s/p Left foot emergent incision and drainage -Wound flushed and appropriate dressing applied. - MRI report reviewed as mentioned above. Recommendations. -NPO midnight, please stop any anti-coagulations including Heparin tonight. -Surgery for left foot 3rd digit and partial 3rd ray amp scheduled 02/06 at 5 PM. -Patient to continue with antibiotics. -Appreciate ID recommendations, Patient would need PICC line even post surgery pending NELSON to go home with. -Appreciate medicine team care of patient. Subjective 24 Hr Interval Summary Patient seen bedside 6 days s/p left foot emergent I&D for left foot gas gangrene. Patient is doing better. Denies any fevers, chills, nausea or vomiting. He did have MRI of left foot with below report: "IMPRESSION: 1. Status post extensive soft tissue debridement at the dorsal and plantar aspects of the third MTP joint extending to the joint capsule. There is contour irregularity of the head of the third metatarsal and the base of the third proximal phalanx with altered bone marrow signal intensity concerning for osteomyelitis. Negative for evidence of osteomyelitis elsewhere in the forefoot. 2. Soft tissue edema involving the superficial and deep fascial compartments of the forefoot is concerning for soft tissue infection. Without intravenous contrast, the study is limited in evaluating for microabscesses. 3. Small joint effusions involving the first, second and fourth MTP joints." Patient is on Vanco and Zosyn, followed by ID. He is pending Left foot 3rd digit and partial 3rd ray amputation with delayed closure tomorrow 02/06 at 5 PM. Exam/Review of Systems Vital Signs Vitals Vital Signs Date Time Temp Pulse Resp B/P Pulse Ox O2 Delivery O2 Flow Rate FiO2 02/05/17 07:37 99.1 89 18 179/90 92 02/04/17 21:20 Room Air Intake and Output 02/04/17 02/04/17 02/05/17 14:59 22:59 06:59 Intake Total 250 ml 1170 ml 1100 ml Output Total 2750 ml 1000 ml Balance 250 ml -1580 ml 100 ml Exam Free Text/Dictation Left foot dorsal and plantar incisions open with less fibrotic tissue. Necrotic left foot 3rd metatarsal and 3rd digit. No drainage noted. Minimal edema of left foot noted. Results Result Diagram: 02/05/17 0508 02/05/17 0508 JACOB NUÑEZ DPM Feb 05, 2017 12:19
[2017-02-05 14:00] VITALS: BP 149/84; RESP 18
--- NOTE | 2017-02-05 15:17 | PN ---
Date/Time of Note Date/Time of Note DATE: 02/05/17 TIME: 15:15 Assessment/Plan VTE Prophylaxis VTE Prophylaxis Intervention: SCD's Lines/Catheters IV Catheter Type (from Nrsg): Peripheral IV Urinary Cath still in place: No Assessment/Plan Assessment/Plan 46 yo M with DM2 admitted for sepsis from infected foot wound, possible OM MRI with OM appreciate podiatry assistance cont abx PICC line after surgery cont vanc. for GNR, appears sensies are not done. I am inclined to narrow zosyn to quinolone though per protocol will defer to ID. cont vanc cont BG control. a1c 7.5. will add SFU at discharge DM diet Subjective 24 Hr Interval Summary Free Text/Dictation MRI with OM. podiatry note reviewed, pt to OR in AM Exam/Review of Systems Vital Signs Vitals Vital Signs Date Time Temp Pulse Resp B/P Pulse Ox O2 Delivery O2 Flow Rate FiO2 02/05/17 14:00 98.3 87 18 149/84 96 02/04/17 21:20 Room Air Intake and Output 02/04/17 02/04/17 02/05/17 15:00 23:00 07:00 Intake Total 300 ml 1120 ml 1100 ml Output Total 2750 ml 1000 ml Balance 300 ml -1630 ml 100 ml Exam nad no mrg lungs clear abd soft no rashes BGs reviewed Results Result Diagram: 02/05/17 0508 02/05/17 0508 Results 24 hrs Laboratory Tests Test 02/04/17 18:00 02/04/17 18:41 02/04/17 20:21 02/05/17 05:08 Bedside Glucose 117 116 Vancomycin Level Trough 16.4 White Blood Count 12.8 H Red Blood Count 3.13 L Hemoglobin 9.2 L Hematocrit 27.3 L Mean Corpuscular Volume 87.2 Mean Corpuscular Hemoglobin 29.4 Mean Corpuscular Hemoglobin Concent 33.7 Red Cell Distribution Width 11.9 Platelet Count 262 Mean Platelet Volume 9.5 Neutrophils % 68.8 Lymphocytes % 17.1 Monocytes % 9.3 Eosinophils % 1.6 Basophils % 0.3 Nucleated Red Blood Cells % 0.0 Neutrophils # 8.8 H Lymphocytes # 2.2 Monocytes # 1.2 H Eosinophils # 0.2 Basophils # 0.0 Nucleated Red Blood Cells # 0.0 Sodium Level 135 Potassium Level 4.3 Chloride Level 98 Carbon Dioxide Level 31 Anion Gap 10 Blood Urea Nitrogen 12 Creatinine 1.26 H Glucose Level 145 Calcium Level 8.3 L Test 02/05/17 08:50 02/05/17 12:16 Bedside Glucose 136 159 Medications Medications Current Medications Ondansetron HCl (Zofran Inj) 4 mg Q6H PRN IV NAUSEA AND/OR VOMITING; Start 01/31/17 at 17:00 Acetaminophen (Tylenol Tab) 650 mg Q6H PRN PO PAIN LEVEL 1-3 OR FEVER Last administered on 02/05/17 07:51; Admin Dose 650 MG; Start 01/31/17 at 17:00 Acetaminophen/ Hydrocodone Bitart ([place] (5/325)) 1 tab Q6H PRN PO MODERATE PAIN LEVEL 4-6 Last administered on 02/04/17 22:15; Admin Dose 1 TAB; Start 01/31/17 at 17:00 Docusate Sodium (Colace) 100 mg Q12H PRN PO CONSTIPATION; Start 01/31/17 at 17: 00 Magnesium Hydroxide (Milk Of Mag) 30 ml DAILY PRN PO CONSTIPATION; Start at 17:00 Sodium Biphosphate/ Sodium Phosphate (Fleet Enema) 133 ml DAILY PRN [place] CONSTIPATION; Start 01/31/17 at 17:00 Nitroglycerin (Nitroglycerin (Sl Tab) 0.4 Mg) 1 tab Q5M PRN SL ANGINA; Start 01/31/17 at 17:00 Diagnostic Test (Pha) (Accu-Chek) 1 ea 02 XX ; Start 02/01/17 at 02:00 Miscellaneous Information 1 ea NOTE XX ; Start 01/31/17 at 17:00 Glucose (Glutose) 15 gm Q15M PRN PO DECREASED GLUCOSE; Start 01/31/17 at 17:00 Glucose (Glutose) 22.5 gm Q15M PRN PO DECREASED GLUCOSE; Start 01/31/17 at 17: 00 Glucagon (Glucagen) 1 mg Q15M PRN IM DECREASED GLUCOSE; Start 01/31/17 at 17:00 Glucose (Glutose) 15 gm Q15M PRN BUCCAL DECREASED GLUCOSE; Start 01/31/17 at 17 :00 Dextrose (D50w Syringe) 50 ml Q15M PRN IV For BS 50 or less; Start 01/31/17 at 19:00 Dextrose (D50w Syringe) 25 ml Q15M PRN IV BS between 50-70; Start 01/31/17 at 19:00 Insulin Glargine 20 unit 20 unit DAILY@20 SC Last administered on 02/04/17 20 :30; Admin Dose 20 UNIT; Start 02/01/17 at 20:00 Vancomycin HCl 1.5 gm/Sodium Chloride 250 ml @ 83.333 mls/ hr Q12H IVPB Last administered on 02/05/17 08:51; Admin Dose 83.333 MLS/HR; Start 02/03/17 at 08:00 Piperacillin Sod/ Tazobactam Sod (Zosyn 3.375gm/ 50 ml (Pmx)) 50 ml @ 100 mls/ hr Q8 IVPB Last administered on 02/05/17 06:04; Admin Dose 100 MLS/HR; Start 02/03/17 at 14:00 KERRY MAYER MD Feb 05, 2017 15:17
--- NOTE | 2017-02-05 19:01 | CONS ---
Date/Time of Note Date/Time of Note DATE: 02/05/17 TIME: 18:59 Assessment/Plan Assessment/Plan Chief Complaint/Hosp Course SUBJECTIVE: No acute events overnight. The patient is alert, looks comfortable. Denies pain. No fevers MICROBIOLOGY: Wound culture growing [place]cal[place] faecalis species, Corynebacterium and streptococcus group C. Final sensitivities pending ANTIMICROBIALS: The patient is on IV vancomycin, Zosyn PHYSICAL EXAMINATION: GENERAL: This is an obese, well-developed, middle-aged man who is awake, in no distress. HEENT: Head atraumatic, normocephalic. Sclerae anicteric. Buccal mucosa pink. NECK: Supple. CHEST: Rise symmetrical. Breath sounds diminished to bases. HEART: S1, S2. ABDOMEN: Soft, bowel tones present. EXTREMITIES: Left foot dressing intact. ASSESSMENT: 1. Left foot gas gangrene/OM, status post incision and drainage on 01/31/2017 2. Diabetes mellitus. 3. Obesity. 4. Questionable chronic kidney disease, status post acute renal failure on admission. PLAN: Remains stable, change Zosyn to Invanz, continue Vanco, consider PICC, pt will require 6+ weeks abx. Follow podiatry recommendations. Monitor renal f-n Discussed with pt Problems: Consultation Date/Type/Reason Admit Date/Time Jan 31, 2017 at 18:37 Type of Consultation: ID Exam/Review of Systems Vital Signs Vitals Vital Signs Date Time Temp Pulse Resp B/P Pulse Ox O2 Delivery O2 Flow Rate FiO2 02/05/17 14:00 98.3 87 18 149/84 96 02/04/17 21:20 Room Air Intake and Output 02/04/17 02/04/17 02/05/17 15:00 23:00 07:00 Intake Total 300 ml 1120 ml 1100 ml Output Total 2750 ml 1000 ml Balance 300 ml -1630 ml 100 ml Results Result Diagram: 02/05/17 0508 02/05/17 0508 Results 24 hrs Laboratory Tests Test 02/04/17 20:21 02/05/17 05:08 02/05/17 08:50 02/05/17 12:16 Bedside Glucose 116 136 159 White Blood Count 12.8 H Red Blood Count 3.13 L Hemoglobin 9.2 L Hematocrit 27.3 L Mean Corpuscular Volume 87.2 Mean Corpuscular Hemoglobin 29.4 Mean Corpuscular Hemoglobin Concent 33.7 Red Cell Distribution Width 11.9 Platelet Count 262 Mean Platelet Volume 9.5 Neutrophils % 68.8 Lymphocytes % 17.1 Monocytes % 9.3 Eosinophils % 1.6 Basophils % 0.3 Nucleated Red Blood Cells % 0.0 Neutrophils # 8.8 H Lymphocytes # 2.2 Monocytes # 1.2 H Eosinophils # 0.2 Basophils # 0.0 Nucleated Red Blood Cells # 0.0 Sodium Level 135 Potassium Level 4.3 Chloride Level 98 Carbon Dioxide Level 31 Anion Gap 10 Blood Urea Nitrogen 12 Creatinine 1.26 H Glucose Level 145 Calcium Level 8.3 L Test 02/05/17 17:57 Bedside Glucose 143 Medications Medications Current Medications Ondansetron HCl (Zofran Inj) 4 mg Q6H PRN IV NAUSEA AND/OR VOMITING; Start 01/31/17 at 17:00 Acetaminophen (Tylenol Tab) 650 mg Q6H PRN PO PAIN LEVEL 1-3 OR FEVER Last administered on 02/05/17 07:51; Admin Dose 650 MG; Start 01/31/17 at 17:00 Acetaminophen/ Hydrocodone Bitart ([place] (5/325)) 1 tab Q6H PRN PO MODERATE PAIN LEVEL 4-6 Last administered on 02/04/17 22:15; Admin Dose 1 TAB; Start 01/31/17 at 17:00 Docusate Sodium (Colace) 100 mg Q12H PRN PO CONSTIPATION; Start 01/31/17 at 17: 00 Magnesium Hydroxide (Milk Of Mag) 30 ml DAILY PRN [place] CONSTIPATION; Start at 17:00 Sodium Biphosphate/ Sodium Phosphate (Fleet Enema) 133 ml DAILY PRN [place] CONSTIPATION; Start 01/31/17 at 17:00 Nitroglycerin (Nitroglycerin (Sl Tab) 0.4 Mg) 1 tab Q5M PRN [place] ANGINA; Start 01/31/17 at 17:00 Diagnostic Test (Pha) (Accu-Chek) 1 ea 02 XX ; Start 02/01/17 at 02:00 Miscellaneous Information 1 ea NOTE XX ; Start 01/31/17 at 17:00 Glucose (Glutose) 15 gm Q15M PRN PO DECREASED GLUCOSE; Start 01/31/17 at 17:00 Glucose (Glutose) 22.5 gm Q15M PRN PO DECREASED GLUCOSE; Start 01/31/17 at 17: 00 Glucagon (Glucagen) 1 mg Q15M PRN IM DECREASED GLUCOSE; Start 01/31/17 at 17:00 Glucose (Glutose) 15 gm Q15M PRN BUCCAL DECREASED GLUCOSE; Start 01/31/17 at 17 :00 Dextrose (D50w Syringe) 50 ml Q15M PRN IV For BS 50 or less; Start 01/31/17 at 19:00 Dextrose (D50w Syringe) 25 ml Q15M PRN IV BS between 50-70; Start 01/31/17 at 19:00 Insulin Glargine 20 unit 20 unit DAILY@20 SC Last administered on 02/04/17 20 :30; Admin Dose 20 UNIT; Start 02/01/17 at 20:00 Vancomycin HCl 1.5 gm/Sodium Chloride 250 ml @ 83.333 mls/ hr Q12H IVPB Last administered on 02/05/17 08:51; Admin Dose 83.333 MLS/HR; Start 02/03/17 at 08:00 Piperacillin Sod/ Tazobactam Sod (Zosyn 3.375gm/ 50 ml (Pmx)) 50 ml @ 100 mls/ hr Q8 IVPB Last administered on 02/05/17 15:18; Admin Dose 100 MLS/HR; Start 02/03/17 at 14:00 GIANNA HENRY NP Feb 05, 2017 19:01
[2017-02-05 19:11] VITALS: BP 164/81; RESP 20
[2017-02-05] MEDS: INSULIN GLARGINE [LANtus] 3 ML PEN SC SCH (20:57)
[2017-02-05] MEDS: ERTAPENEM SODIUM 1 GM in SOD CHLORIDE 0.9% 100 ML IVPB SCH (23:18)
[2017-02-06] VITALS (16 sets, daily range): BP systolic 135–195; BP diastolic 63–103; PULSE 82–90; RESP 18–23
[2017-02-06] MEDS: ACCU-CHEK XX SCH (02:00)
[2017-02-06 05:14] LABS: BASOPHIL # 0.1 10^3/ul (0.0-0.1); BASOPHILS % 0.4 % (0.0-2.0); EOSINOPHILS # 0.2 10^3/ul (0.0-0.5); EOSINOPHILS % 1.3 % (0.0-7.0); HEMATOCRIT 27.3 % (42.0-52.0); HEMOGLOBIN 9.4 g/dl (14.0-18.0); LYMPHOCYTES # 1.8 10^3/ul (0.8-2.9); LYMPHOCYTES % 14.5 % (15.0-51.0); MEAN CORPUSCULAR HEMOGLOBIN 29.4 pg (29.0-33.0); MEAN CORPUSCULAR HGB CONC 34.4 g/dl (32.0-37.0); MEAN CORPUSCULAR VOLUME 85.3 fl (82.0-101.0); MEAN PLATELET VOLUME 9.4 fl (7.4-10.4); MONOCYTES % 8.1 % (0.0-11.0); PLATELET COUNT 285 10^3/UL (140-415); RED CELL DISTRIBUTION WIDTH 11.9 % (11.5-14.5); WHITE BLOOD COUNT 12.6 10^3/ul (4.8-10.8)
[2017-02-06 05:42] LABS: CALCIUM 8.5 mg/dl (8.4-10.2); CREATININE 1.24 mg/dl (0.61-1.24); POTASSIUM 4.2 mmol/L (3.5-5.1)
[2017-02-06] MEDS ORDERED: LIDOCAINE 2% (SDV) 5 ML INJ ONE (07:00)
[2017-02-06] MEDS: INSULIN ASPART [NOVOLOG] 3 ML PEN SC SCH ×7 (07:50→21:00)
[2017-02-06] MEDS: VANCOMYCIN 1.5 GM in SOD CHLORIDE 0.9% 250 ML IVPB SCH ×2 (09:43→21:21)
--- NOTE | 2017-02-06 11:30 | PN ---
Date/Time of Note Date/Time of Note DATE: 02/06/17 TIME: 11:29 Assessment/Plan VTE Prophylaxis VTE Prophylaxis Intervention: SCD's Lines/Catheters IV Catheter Type (from Nrsg): Saline Lock Urinary Cath still in place: Yes Reason Cath still needed: other (indicate) (dc) Assessment/Plan Assessment/Plan 46 yo M with DM2 admitted for sepsis from infected foot wound, possible OM Diabetic foot infection with OM appreciate podiatry assistance PICC line after surgery cont vanc. ID changed zosyn to Invanz cont BG control. a1c 7.5. will add SFU at discharge. pt refused insulin DM diet possible discharge tomorrow or friday Subjective 24 Hr Interval Summary Free Text/Dictation no complaints. Watching Friends on TV Exam/Review of Systems Vital Signs Vitals Vital Signs Date Time Temp Pulse Resp B/P Pulse Ox O2 Delivery O2 Flow Rate FiO2 02/06/17 09:29 135/70 02/06/17 08:05 98.9 87 18 95 02/04/17 21:20 Room Air Intake and Output 02/05/17 02/05/17 02/06/17 15:00 23:00 07:00 Intake Total 250 ml 1400 ml 550 ml Output Total 1800 ml 2150 ml Balance 250 ml -400 ml -1600 ml Exam nad no mrg lungs clear abd soft foot wrapped Results Result Diagram: 02/06/17 0432 02/06/17 0432 Results 24 hrs Laboratory Tests Test 02/05/17 12:16 02/05/17 17:57 02/05/17 20:48 02/06/17 04:32 Bedside Glucose 159 143 110 White Blood Count 12.6 H Red Blood Count 3.20 L Hemoglobin 9.4 L Hematocrit 27.3 L Mean Corpuscular Volume 85.3 Mean Corpuscular Hemoglobin 29.4 Mean Corpuscular Hemoglobin Concent 34.4 Red Cell Distribution Width 11.9 Platelet Count 285 Mean Platelet Volume 9.4 Neutrophils % 71.0 Lymphocytes % 14.5 L Monocytes % 8.1 Eosinophils % 1.3 Basophils % 0.4 Nucleated Red Blood Cells % 0.0 Neutrophils # 9.0 H Lymphocytes # 1.8 Monocytes # 1.0 H Eosinophils # 0.2 Basophils # 0.1 Nucleated Red Blood Cells # 0.0 Sodium Level 136 Potassium Level 4.2 Chloride Level 98 Carbon Dioxide Level 32 H Anion Gap 10 Blood Urea Nitrogen 14 Creatinine 1.24 Glucose Level 165 Calcium Level 8.5 Test 02/06/17 09:01 Bedside Glucose 141 Medications Medications Current Medications Ondansetron HCl (Zofran Inj) 4 mg Q6H PRN IV NAUSEA AND/OR VOMITING; Start 01/31/17 at 17:00 Acetaminophen (Tylenol Tab) 650 mg Q6H PRN PO PAIN LEVEL 1-3 OR FEVER Last administered on 02/05/17 07:51; Admin Dose 650 MG; Start 01/31/17 at 17:00 Acetaminophen/ Hydrocodone Bitart ([place] (5/325)) 1 tab Q6H PRN PO MODERATE PAIN LEVEL 4-6 Last administered on 02/04/17 22:15; Admin Dose 1 TAB; Start 01/31/17 at 17:00 Docusate Sodium (Colace) 100 mg Q12H PRN PO CONSTIPATION; Start 01/31/17 at 17: 00 Magnesium Hydroxide (Milk Of Mag) 30 ml DAILY PRN PO CONSTIPATION; Start at 17:00 Sodium Biphosphate/ Sodium Phosphate (Fleet Enema) 133 ml DAILY PRN [place] CONSTIPATION; Start 01/31/17 at 17:00 Nitroglycerin (Nitroglycerin (Sl Tab) 0.4 Mg) 1 tab Q5M PRN SL ANGINA; Start 01/31/17 at 17:00 Diagnostic Test (Pha) (Accu-Chek) 1 ea 02 XX ; Start 02/01/17 at 02:00 Miscellaneous Information 1 ea NOTE XX ; Start 01/31/17 at 17:00 Glucose (Glutose) 15 gm Q15M PRN PO DECREASED GLUCOSE; Start 01/31/17 at 17:00 Glucose (Glutose) 22.5 gm Q15M PRN PO DECREASED GLUCOSE; Start 01/31/17 at 17: 00 Glucagon (Glucagen) 1 mg Q15M PRN IM DECREASED GLUCOSE; Start 01/31/17 at 17:00 Glucose (Glutose) 15 gm Q15M PRN BUCCAL DECREASED GLUCOSE; Start 01/31/17 at 17 :00 Dextrose (D50w Syringe) 50 ml Q15M PRN IV For BS 50 or less; Start 01/31/17 at 19:00 Dextrose (D50w Syringe) 25 ml Q15M PRN IV BS between 50-70; Start 01/31/17 at 19:00 Insulin Glargine 20 unit 20 unit DAILY@20 SC Last administered on 02/05/17 20 :57; Admin Dose 20 UNIT; Start 02/01/17 at 20:00 Vancomycin HCl 1.5 gm/Sodium Chloride 250 ml @ 83.333 mls/ hr Q12H IVPB Last administered on 02/06/17 09:43; Admin Dose 83.333 MLS/HR; Start 02/03/17 at 08:00 Ertapenem/Sodium Chloride (Invanz/NS) 100 ml @ 200 mls/hr Q24H IVPB Last administered on 02/05/17 23:18; Admin Dose 200 MLS/HR; Start 02/05/17 at 19: 30 KERRY MAYER MD Feb 06, 2017 11:30
--- NOTE | 2017-02-06 17:17 | HPN ---
Date/Time of Note Date/Time of Note DATE: 02/06/17 TIME: 17:17 Interval H&P Admission Note Pt. seen H&P reviewed: No system changes JACOB NUÑEZ DPM Feb 06, 2017 17:17
--- NOTE | 2017-02-06 17:21 | OPR ---
Date/Time of Note Date/Time of Note DATE: 02/06/17 TIME: 17:17 Operative Report Preoperative Diagnosis Left foot osteomyelitis of 3rd digit and 3rd metatarsal. Postoperative Diagnosis Same Operation/Procedure Performed Left foot 3rd digit and partial 3rd ray amputation with delay closure. Surgeon see signature line Mining Engineering Technologist None Anesthesia Type: MAC Estimated Blood Loss: 10 - 50 ml's Transfusion none Specimen Left 3rd digit and partial Ray Grafts/Implants none Complications none Pt Condition Post Procedure: stable Disposition: PACU Indications Patient is s/p left foot emergent incision and drainage. Patient has been inpatient on IV antibiotics for the past 6 days. Patient had MRI of left foot consistent with osteomyelitis of left foot 3rd digit and 3rd metatarsal. Left foot 3rd digit amputation and partial metatarsal amputation discussed with patient and he signed informed consent available per chart. Patient was advised about possibility of further debridement and possible amputation of toes vs. partial toe. Procedure Description Patient brought into operating table and placed on operating table in supine position. Patient was placed under MAC anesthesia. Patient was given 10 cc 1:1 Lidocaine 1% mixed with Marcaine plain. Ankle tourniquet placed left ankle. Left foot and ankle were prepped and draped in sterile fashion. Left ankle tourniquet placed around left ankle. Tourniquet inflated to 250 mm HG. Tension was taken dorsal left foot. Incision was deepened down to 3rd metatarsal. Necrosis of left 3rd metatarsal head was noted. Further incision around left 3rd digit and 3rd digit was resected with 15 blade and sent to pathology. Using a sagittal saw partial left 3rd ray amputation performed and resected bone was sent to pathology. Some bleeders were noted and coag with bovie. At this time left foot incision dorsal and planar aspect were irrigated using pulse lavage. 1.5 liters of mixed saline with bacitracin used. Tourniquet was deflated with running of time of less than thirty minutes. Further 1/2 litter irrigation with pulse lavage normal saline. Please note that prior to irrigation wound was debrided further to remove all necrotic tissue using rongeur. After irrigation some venous changes of left foot 4th digit noted which continued to improve during closure. Dorsal wound was closed using 4.0 nylon in simple interrupted fashion. Plantar incision closure using 2.0 nylon in simple interrupted fashion as well. Given patient previous need of radical debridement, minimal gapping of incision was noted. No active bleeding noted. Appropriate dressing with Xeroform , 4x4 gauze, Nikki and Coban. Patient tolerated procedure well and transferred to recovery area with all vital signs with in normal limit. Patient will be transferred to the floor. He will be using post/op shoe non weight bearing using crutches. JACOB NUÑEZ DPM Feb 06, 2017 17:21
[2017-02-06] MEDS ORDERED: BUPIVACAINE 0.5% (SDV) 30 ML INJ ONE (18:00)
[2017-02-06] MEDS ORDERED: POLYMYXIN/BACITRACIN 1L IRRIG ONE (18:00)
[2017-02-06] MEDS ORDERED: LIDOCAINE 1% (MPF) 30 ML INJ ONE (18:00)
[2017-02-06] MEDS ORDERED: FENTAnyl 50 MCG/ML VIAL ONE (18:18)
[2017-02-06] MEDS ORDERED: MIDAZOLAM 1 MG/ML 2 ML INJ ONE (18:24)
[2017-02-06] MEDS ORDERED: POLYMYXIN B 500000 UNIT INJ ONE (18:25)
[2017-02-06] MEDS ORDERED: BACITRACIN 50000 UNITS INJ IRR ONE (18:55)
[2017-02-06] MEDS ORDERED: PROPOFOL 60 ML ONE (19:09)
[2017-02-06] MEDS: ERTAPENEM SODIUM 1 GM in SOD CHLORIDE 0.9% 100 ML IVPB SCH (19:30)
--- NOTE | 2017-02-06 19:37 | SIPON ---
Date/Time of Note Date/Time of Note DATE: 02/06/17 TIME: 19:35 Operative Report Preoperative Diagnosis Left foot osteomyelitis of left 3rd digit and 3rd metatarsal. Postoperative Diagnosis Same Operation/Procedure Performed Left foot 3rd digit and partial 3rd metatarsal amputation with delayed closure. Surgeon see signature line clerical assistant None Anesthesia: MAC Estimated blood loss: 10 - 50 ml's Transfusion Required none Specimen Left 3rd toe and left partial 3rd ray Grafts/Implants none Complications none JACOB NUÑEZ DPM Feb 06, 2017 19:37
[2017-02-06] MEDS ORDERED: morphine 2 MG INJ IV STA (20:02)
[2017-02-06] MEDS: HYDROCODONE/APAP (5/325) TAB PO PRN (20:05)
--- NOTE | 2017-02-06 20:19 | CONS ---
Date/Time of Note Date/Time of Note DATE: 02/06/17 TIME: 20:17 Assessment/Plan Assessment/Plan Chief Complaint/Hosp Course SUBJECTIVE: No acute events overnight. The patient is alert, looks comfortable. Denies pain. No fevers MICROBIOLOGY: Wound culture growing Alcaligenes faecalis species, Corynebacterium and streptococcus group C. Final sensitivities pending ANTIMICROBIALS: The patient is on IV vancomycin, Invanz PHYSICAL EXAMINATION: GENERAL: This is an obese, well-developed, middle-aged man who is awake, in no distress. HEENT: Head atraumatic, normocephalic. Sclerae anicteric. Buccal mucosa pink. NECK: Supple. CHEST: Rise symmetrical. Breath sounds diminished to bases. HEART: S1, S2. ABDOMEN: Soft, bowel tones present. EXTREMITIES: Left foot dressing intact. ASSESSMENT: 1. Left foot gas gangrene/OM of 3rd toe, status post incision and drainage on 01/31/2017 2. Diabetes mellitus. 3. Obesity. 4. Questionable chronic kidney disease, status post acute renal failure on admission. PLAN: Remains stable, continue abx, f/u podiatry rec-s, pending toe amputation Discussed with staff Problems: Consultation Date/Type/Reason Admit Date/Time Jan 31, 2017 at 18:37 Type of Consultation: ID Exam/Review of Systems Vital Signs Vitals Vital Signs Date Time Temp Pulse Resp B/P Pulse Ox O2 Delivery O2 Flow Rate FiO2 02/06/17 14:00 98.3 80 18 179/100 95 02/04/17 21:20 Room Air Intake and Output 02/05/17 02/05/17 02/06/17 15:00 23:00 07:00 Intake Total 250 ml 1400 ml 550 ml Output Total 1800 ml 2150 ml Balance 250 ml -400 ml -1600 ml Results Result Diagram: 02/06/17 0432 02/06/17 0432 Results 24 hrs Laboratory Tests Test 02/05/17 20:48 02/06/17 04:32 02/06/17 09:01 02/06/17 14:07 Bedside Glucose 110 141 156 White Blood Count 12.6 H Red Blood Count 3.20 L Hemoglobin 9.4 L Hematocrit 27.3 L Mean Corpuscular Volume 85.3 Mean Corpuscular Hemoglobin 29.4 Mean Corpuscular Hemoglobin Concent 34.4 Red Cell Distribution Width 11.9 Platelet Count 285 Mean Platelet Volume 9.4 Neutrophils % 71.0 Lymphocytes % 14.5 L Monocytes % 8.1 Eosinophils % 1.3 Basophils % 0.4 Nucleated Red Blood Cells % 0.0 Neutrophils # 9.0 H Lymphocytes # 1.8 Monocytes # 1.0 H Eosinophils # 0.2 Basophils # 0.1 Nucleated Red Blood Cells # 0.0 Sodium Level 136 Potassium Level 4.2 Chloride Level 98 Carbon Dioxide Level 32 H Anion Gap 10 Blood Urea Nitrogen 14 Creatinine 1.24 Glucose Level 165 Calcium Level 8.5 Albumin 2.5 L Test 02/06/17 17:13 Bedside Glucose 118 Medications Medications Current Medications Ondansetron HCl (Zofran Inj) 4 mg Q6H PRN IV NAUSEA AND/OR VOMITING; Start 01/31/17 at 17:00 Acetaminophen (Tylenol Tab) 650 mg Q6H PRN PO PAIN LEVEL 1-3 OR FEVER Last administered on 02/05/17 07:51; Admin Dose 650 MG; Start 01/31/17 at 17:00 Acetaminophen/ Hydrocodone Bitart ([place] (5/325)) 1 tab Q6H PRN PO MODERATE PAIN LEVEL 4-6 Last administered on 02/06/17 20:05; Admin Dose 1 TAB; Start 01/31/17 at 17:00 Docusate Sodium (Colace) 100 mg Q12H PRN PO CONSTIPATION; Start 01/31/17 at 17: 00 Magnesium Hydroxide (Milk Of Mag) 30 ml DAILY PRN PO CONSTIPATION; Start at 17:00 Sodium Biphosphate/ Sodium Phosphate (Fleet Enema) 133 ml DAILY PRN [place] CONSTIPATION; Start 01/31/17 at 17:00 Nitroglycerin (Nitroglycerin (Sl Tab) 0.4 Mg) 1 tab Q5M PRN SL ANGINA; Start 01/31/17 at 17:00 Diagnostic Test (Pha) (Accu-Chek) 1 ea 02 XX ; Start 02/01/17 at 02:00 Miscellaneous Information 1 ea NOTE XX ; Start 01/31/17 at 17:00 Glucose (Glutose) 15 gm Q15M PRN PO DECREASED GLUCOSE; Start 01/31/17 at 17:00 Glucose (Glutose) 22.5 gm Q15M PRN PO DECREASED GLUCOSE; Start 01/31/17 at 17: 00 Glucagon (Glucagen) 1 mg Q15M PRN IM DECREASED GLUCOSE; Start 01/31/17 at 17:00 Glucose (Glutose) 15 gm Q15M PRN BUCCAL DECREASED GLUCOSE; Start 01/31/17 at 17 :00 Dextrose (D50w Syringe) 50 ml Q15M PRN IV For BS 50 or less; Start 01/31/17 at 19:00 Dextrose (D50w Syringe) 25 ml Q15M PRN IV BS between 50-70; Start 01/31/17 at 19:00 Insulin Glargine 20 unit 20 unit DAILY@20 SC Last administered on 02/05/17 20 :57; Admin Dose 20 UNIT; Start 02/01/17 at 20:00 Vancomycin HCl 1.5 gm/Sodium Chloride 250 ml @ 83.333 mls/ hr Q12H IVPB Last administered on 02/06/17 09:43; Admin Dose 83.333 MLS/HR; Start 02/03/17 at 08:00 Ertapenem/Sodium Chloride (Invanz/NS) 100 ml @ 200 mls/hr Q24H IVPB Last administered on 02/05/17 23:18; Admin Dose 200 MLS/HR; Start 02/05/17 at 19: 30 GIANNA HENRY NP Feb 06, 2017 20:19
[2017-02-06] MEDS ORDERED: hydrALAzine 20 MG INJ IV ONE (20:30)
[2017-02-06] MEDS ORDERED: hydrALAzine 20 MG INJ ONE (20:32)
[2017-02-06] MEDS: INSULIN GLARGINE [LANtus] 3 ML PEN SC SCH (21:13)
[2017-02-07] MEDS: ACCU-CHEK XX SCH (02:00)
[2017-02-07 02:10] VITALS: BP 140/70; RESP 18
[2017-02-07 06:26] LABS: BASOPHILS % 0.3 % (0.0-2.0); EOSINOPHILS # 0.1 10^3/ul (0.0-0.5); EOSINOPHILS % 1.1 % (0.0-7.0); HEMATOCRIT 29.3 % (42.0-52.0); HEMOGLOBIN 9.9 g/dl (14.0-18.0); LYMPHOCYTES # 1.8 10^3/ul (0.8-2.9); LYMPHOCYTES % 13.7 % (15.0-51.0); MEAN CORPUSCULAR HEMOGLOBIN 29.4 pg (29.0-33.0); MEAN CORPUSCULAR HGB CONC 33.8 g/dl (32.0-37.0); MEAN CORPUSCULAR VOLUME 86.9 fl (82.0-101.0); MONOCYTE # 1.1 10^3/ul (0.3-0.9); MONOCYTES % 8.3 % (0.0-11.0); NEUTROPHIL # 9.2 10^3/ul (1.6-7.5); NEUTROPHILS % 72.1 % (39.0-77.0); PLATELET COUNT 345 10^3/UL (140-415); RED BLOOD COUNT 3.37 10^6/ul (4.70-6.10); RED CELL DISTRIBUTION WIDTH 12.1 % (11.5-14.5); WHITE BLOOD COUNT 12.7 10^3/ul (4.8-10.8)
[2017-02-07 07:03] LABS: CALCIUM 8.7 mg/dl (8.4-10.2); CREATININE 1.16 mg/dl (0.61-1.24); POTASSIUM 4.6 mmol/L (3.5-5.1)
[2017-02-07 07:45] VITALS: BP 129/63; RESP 20
[2017-02-07] MEDS: INSULIN ASPART [NOVOLOG] 3 ML PEN SC SCH ×7 (07:50→20:30)
[2017-02-07] MEDS: VANCOMYCIN 1.5 GM in SOD CHLORIDE 0.9% 250 ML IVPB SCH ×3 (08:41→22:04)
--- NOTE | 2017-02-07 09:19 | RADRPT ---
PROCEDURE: XR Left foot. CLINICAL INDICATION: Left foot pain status post amputation TECHNIQUE: Three views of the left foot were obtained. COMPARISON: Radiographs of the left foot January 31, 2017 FINDINGS: There is amputation of the third digit and the distal third metatarsal. There is forefoot soft tissue swelling and gas. Remaining joint spaces are preserved. There are vascular calcifications. There is moderate calcaneal enthesopathy. IMPRESSION: 1. Amputation of the third digit and distal third metatarsal. 2. Forefoot soft tissue swelling and gas plantar soft tissue ulceration. RPTAT: UU .Scooter Pedersen MD, MD Date Time Electronically viewed and signed by .Scooter Pedersen MD, on 02/07/2017 09:18 .K/
[2017-02-07] MEDS ORDERED: LIDOCAINE 1% (MPF) 5 ML VIAL SC ONE (09:30)
[2017-02-07] MEDS ORDERED: morphine 2 MG INJ IV STA (13:48)
[2017-02-07 14:39] VITALS: BP 121/60; PULSE 88; RESP 18
--- NOTE | 2017-02-07 15:18 | RADRPT ---
PROCEDURE: XR Left foot. CLINICAL INDICATION: Left foot pain and swelling, history of prior surgery and bedside I and D TECHNIQUE: Three views of the left foot were obtained. COMPARISON: Radiographs of the left foot earlier in the day and radiographs of the left foot Decem 2016 FINDINGS: There is amputation of the third digit and the distal third metatarsal. Chronic deformity of the fir st distal tuft is noted. There is forefoot soft tissue swelling and gas. There is likely a plantar skin ulceration. Remaining joint spaces are preserved. There are vascular calcifications. There is moderate calcaneal enthesopathy. IMPRESSION: 1. Amputation of the third digit and distal third metatarsal. 2. Forefoot soft tissue swelling and gas with plantar soft tissue ulceration. RPTAT: UU .Scooter Pedersen MD, Date Time Electronically viewed and signed by .Scooter Pedersen MD, on 02/07/2017 15:17 .K/
--- NOTE | 2017-02-07 15:52 | PN ---
Date/Time of Note Date/Time of Note DATE: 02/07/17 TIME: 15:29 Assessment/Plan Lines/Catheters IV Catheter Type (from [facility] Saline Lock Freed in Place (from [facility]): No Assessment/Plan Chief Complaint/Hosp Course Patient 1 day s/p Left foot 3rd digit and left 3rd metatarsal partial ray amputation. Possible area of abscess noted. -Patient advised about condition. Bedside drainage of possible new abscess discussed. Patient signed informed consent. He was given Morphine prior to procedure. -Left foot stab incision made across the area of possible abscess. Incision was deepened with sharp dissection. About 5 cc purulent drainage noted. No further drainage noted. Area was flushed with normal saline mixed with Betadine. Wound was packed with Iodoform. Dressing with Xeroform and Betadine soaked gauze, Nikki and Coban. -X-rays post/op debridement reviewed with no questionable emphysema noted. Recommendations: -Patient needs PICC line with home IV antibiotics. -He can be discharged once he receives his PICC line. -Patient to use post/op shoe Non weight bearing left lower extremity. -If patient is discharged over the weekend, he wound need follow up nursing at [facility] on Friday or Friday. -Patient would also need home health care for daily dressing change of left foot upon discharge. No dressing changes recommended at this time if patient is discharged over the weekend, pending [facility] appt on Friday or Friday. -Appreciate Medicine and ID care of this patient. Problems: Subjective 24 Hr Interval Summary Patient seen bedside 1 day s/p Left foot 3rd digit and partial 3rd ray amputation. Patient is doing well. He has been having some pain proximal to her left foot mid arch area. Patient did have x-rays of left post surgery, there is some questionable possible emphysema of left foot plantar mid arch area. He has dry dressing intact today. Exam/Review of Systems Vital Signs Vitals Vital Signs Date Time Temp Pulse Resp B/P Pulse Ox O2 Delivery O2 Flow Rate FiO2 02/07/17 14:39 98.8 88 18 121/60 96 Room Air Intake and Output 02/06/17 02/06/17 02/07/17 15:00 23:00 07:00 Intake Total 250 ml 580 ml 650 ml Output Total 1810 ml 1200 ml Balance 250 ml -1230 ml -550 ml Exam Free Text/Dictation Patient with left foot s/p left foot surgery, dorsal and plantar sutures intact. Plantar midfoot some erythema not present in prior exams. Tenderness to palpation. No drainage noted. No proximal streaking noted. Results Result Diagram: 02/07/17 0511 02/07/17 0511 JACOB NUÑEZ DPM Feb 07, 2017 15:40
--- NOTE | 2017-02-07 16:29 | PN ---
Date/Time of Note Date/Time of Note DATE: 02/07/17 TIME: 16:27 Assessment/Plan VTE Prophylaxis VTE Prophylaxis Intervention: SCD's Lines/Catheters IV Catheter Type (from [facility]): Saline Lock Urinary Cath still in place: No Assessment/Plan Assessment/Plan 46 yo M with DM2 admitted for sepsis from infected foot wound, possible OM Diabetic foot infection with OM sp debridement 02.06 and 02.07. Per software requirements engineer +residual OM PICC line today cont vanc. ID changed zosyn to Invanz cont BG control. a1c 7.5. will add SFU at discharge. pt refused insulin DM diet possible discharge tomorrow Subjective 24 Hr Interval Summary Free Text/Dictation Wasn't sure he wanted PICC line but software requirements engineer convinced him Exam/Review of Systems Vital Signs Vitals Vital Signs Date Time Temp Pulse Resp B/P Pulse Ox O2 Delivery O2 Flow Rate FiO2 02/07/17 14:39 98.8 88 18 121/60 96 Room Air Intake and Output 02/06/17 02/06/17 02/07/17 14:59 22:59 06:59 Intake Total 250 ml 580 ml 650 ml Output Total 1810 ml 1200 ml Balance 250 ml -1230 ml -550 ml Exam nad no mrg lungs clear abd soft L foot wrapped Results Result Diagram: 02/07/17 0511 02/07/17 0511 Results 24 hrs Laboratory Tests Test 02/06/17 17:13 02/06/17 21:11 02/07/17 05:11 02/07/17 08:37 Bedside Glucose 118 121 117 White Blood Count 12.7 H Red Blood Count 3.37 L Hemoglobin 9.9 L Hematocrit 29.3 L Mean Corpuscular Volume 86.9 Mean Corpuscular Hemoglobin 29.4 Mean Corpuscular Hemoglobin Concent 33.8 Red Cell Distribution Width 12.1 Platelet Count 345 # Mean Platelet Volume 9.0 Neutrophils % 72.1 Lymphocytes % 13.7 L Monocytes % 8.3 Eosinophils % 1.1 Basophils % 0.3 Nucleated Red Blood Cells % 0.0 Neutrophils # 9.2 H Lymphocytes # 1.8 Monocytes # 1.1 H Eosinophils # 0.1 Basophils # 0.0 Nucleated Red Blood Cells # 0.0 Sodium Level 137 Potassium Level 4.6 Chloride Level 98 Carbon Dioxide Level 32 H Anion Gap 12 Blood Urea Nitrogen 14 Creatinine 1.16 Glucose Level 130 Calcium Level 8.7 Test 02/07/17 12:28 02/07/17 14:20 Bedside Glucose 130 127 Medications Medications Current Medications Ondansetron HCl (Zofran Inj) 4 mg Q6H PRN IV NAUSEA AND/OR VOMITING; Start 01/31/17 at 17:00 Acetaminophen (Tylenol Tab) 650 mg Q6H PRN PO PAIN LEVEL 1-3 OR FEVER Last administered on 02/05/17 07:51; Admin Dose 650 MG; Start 01/31/17 at 17:00 Acetaminophen/ Hydrocodone Bitart ([place] (5/325)) 1 tab Q6H PRN PO MODERATE PAIN LEVEL 4-6 Last administered on 02/06/17 20:05; Admin Dose 1 TAB; Start 01/31/17 at 17:00 Docusate Sodium (Colace) 100 mg Q12H PRN PO CONSTIPATION; Start 01/31/17 at 17: 00 Magnesium Hydroxide (Milk Of Mag) 30 ml DAILY PRN PO CONSTIPATION; Start at 17:00 Sodium Biphosphate/ Sodium Phosphate (Fleet Enema) 133 ml DAILY PRN [place] CONSTIPATION; Start 01/31/17 at 17:00 Nitroglycerin (Nitroglycerin (Sl Tab) 0.4 Mg) 1 tab Q5M PRN SL ANGINA; Start 01/31/17 at 17:00 Diagnostic Test (Pha) (Accu-Chek) 1 ea 02 XX ; Start 02/01/17 at 02:00 Miscellaneous Information 1 ea NOTE XX ; Start 01/31/17 at 17:00 Glucose (Glutose) 15 gm Q15M PRN PO DECREASED GLUCOSE; Start 01/31/17 at 17:00 Glucose (Glutose) 22.5 gm Q15M PRN PO DECREASED GLUCOSE; Start 01/31/17 at 17: 00 Glucagon (Glucagen) 1 mg Q15M PRN IM DECREASED GLUCOSE; Start 01/31/17 at 17:00 Glucose (Glutose) 15 gm Q15M PRN BUCCAL DECREASED GLUCOSE; Start 01/31/17 at 17 :00 Dextrose (D50w Syringe) 50 ml Q15M PRN IV For BS 50 or less; Start 01/31/17 at 19:00 Dextrose (D50w Syringe) 25 ml Q15M PRN IV BS between 50-70; Start 01/31/17 at 19:00 Insulin Glargine 20 unit 20 unit DAILY@20 SC Last administered on 02/06/17 21 :13; Admin Dose 20 UNIT; Start 02/01/17 at 20:00 Vancomycin HCl 1.5 gm/Sodium Chloride 250 ml @ 83.333 mls/ hr Q12H IVPB Last administered on 02/07/17 08:41; Admin Dose 83.333 MLS/HR; Start 02/03/17 at 08:00 Ertapenem/Sodium Chloride (Invanz/NS) 100 ml @ 200 mls/hr Q24H IVPB Last administered on 02/06/17 19:30; Admin Dose 200 MLS/HR; Start 02/05/17 at 19: 30 Miscellaneous Information (*Rx Drug Level Order Reminder*) 1 ONCE ONCE XX ; Start 02/07/17 at 19:00; Stop 02/07/17 at 19:01 KERRY MAYER MD Feb 07, 2017 16:28
[2017-02-07 16:38] VITALS: BP 144/71; RESP 20
[2017-02-07 19:30] VITALS: BP 140/77; RESP 20
[2017-02-07] MEDS: ERTAPENEM SODIUM 1 GM in SOD CHLORIDE 0.9% 100 ML IVPB SCH (20:22)
[2017-02-07] MEDS: INSULIN GLARGINE [LANtus] 3 ML PEN SC SCH (20:29)
[2017-02-08] MEDS: ACCU-CHEK XX SCH (01:31)
[2017-02-08 02:05] VITALS: BP 137/81; RESP 18
--- NOTE | 2017-02-08 04:24 | PN ---
DATE: 02/07/2017 SUBJECTIVE: No acute changes. The patient is alert, looks comfortable, no fevers. He had yesterda y amputation of his third toe. MICROBIOLOGY: Wound culture grew Alcaligenes species, faecalis, streptococcus group C and corynebac terium species. ANTIMICROBIALS: The patient is on: 1. Invanz. 2. Vancomycin. PHYSICAL EXAMINATION: GENERAL: This is an obese, well-developed, middle-aged man who is awake, in no distress. HEENT: Head atraumatic, normocephalic. Sclerae anicteric. Buccal mucosa pink. NECK: Supple. CHEST: Rise symmetrical. Breath sounds clear. HEART: S1, S2. ABDOMEN: Soft, bowel tones present. EXTREMITIES: Left foot dressing intact. The patient has significant swelling of the foot and toes. ASSESSMENT: 1. Left foot cellulitis, osteomyelitis, gangrene, status post I and D on admission, status post lef t third digit and partial third metatarsal amputation with delayed closure on 02/06/2017. 2. Diabetes mellitus. 3. Obesity. 4. Status post acute renal failure. 5. Anemia. PLAN: The patient remains stable on appropriate antibiotics, again had amputation of third toe yest erday. The patient's MRI revealed osteomyelitis of the head of the third metatarsal and the base of the 3rd proximal phalanx but it was negative for evidence of osteomyelitis elsewhere in the forefoo t. We are going to discuss with podiatry if infected bone was completely removed, which will guide us toward management with antibiotics. In that case, the patient might require a longer term, proba derian 2 weeks of antibiotics and possibly could be downgraded to oral antibiotics. Above was discusse d with Dr. De Leon and the patient at bedside. Dictated By: GIANNA HENRY CORN BREEDER for REHAN MUNSON/ARLEEN Conf#: [id number] DID#: [id number] CC: JACOB NUÑEZ DPM; TIFFANIE ALANIS;*EndCC*
[2017-02-08 05:25] LABS: ABNORMAL IP MESSAGE 1; BASOPHIL # 0.1 10^3/ul (0.0-0.1); BASOPHILS % 0.6 % (0.0-2.0); EOSINOPHILS # 0.2 10^3/ul (0.0-0.5); HEMATOCRIT 28.9 % (42.0-52.0); HEMOGLOBIN 9.9 g/dl (14.0-18.0); LYMPHOCYTES # 2.2 10^3/ul (0.8-2.9); LYMPHOCYTES % 19.6 % (15.0-51.0); MEAN CORPUSCULAR HEMOGLOBIN 29.6 pg (29.0-33.0); MEAN CORPUSCULAR HGB CONC 34.3 g/dl (32.0-37.0); MEAN CORPUSCULAR VOLUME 86.5 fl (82.0-101.0); MEAN PLATELET VOLUME 8.6 fl (7.4-10.4); MONOCYTES % 8.5 % (0.0-11.0); NEUTROPHIL # 7.3 10^3/ul (1.6-7.5); PLATELET COUNT 371 10^3/UL (140-415); POSITIVE DIFF @See below; RED BLOOD COUNT 3.34 10^6/ul (4.70-6.10); RED CELL DISTRIBUTION WIDTH 11.9 % (11.5-14.5); WHITE BLOOD COUNT 11.4 10^3/ul (4.8-10.8)
[2017-02-08 06:14] LABS: CALCIUM 8.7 mg/dl (8.4-10.2); CREATININE 1.22 mg/dl (0.61-1.24); POTASSIUM 4.2 mmol/L (3.5-5.1)
[2017-02-08 08:06] VITALS: BP 148/83; RESP 20
[2017-02-08] MEDS: INSULIN ASPART [NOVOLOG] 3 ML PEN SC SCH ×7 (09:12→20:25)
[2017-02-08] MEDS: VANCOMYCIN 1.5 GM in SOD CHLORIDE 0.9% 250 ML IVPB SCH ×2 (09:13→21:21)
--- NOTE | 2017-02-08 11:59 | RADRPT ---
PROCEDURE: XR Chest. CLINICAL INDICATION: Post PICC insertion TECHNIQUE: Single frontal chest x-ray. COMPARISON: None. FINDINGS: There is has been placement of a right PICC with the tip in the atrial caval junction region. The ambar ngs are slightly hyporexpanded, with mild left basilar atelectasis. There is no focal consolidation , pleural effusion, or pneumothorax. The heart and mediastinal contours are unremarkable. There is mild osseous spurring in the right glenohumeral joint with a small calcific or ossific density measu ring about 3 mm inferior to the glenohumeral joint which may correspond with an osteochondral body o r osteophytes. There are no acute fractures. RPTAT: ZZ IMPRESSION: Right PICC tip in the region of the atrial caval junction. Hypoexpansion with mild left basilar atelectasis. .Mervat Meng MD, MD Date Time Electronically viewed and signed by .Mervat Meng MD, on 02/08/2017 11:59 .T/
--- NOTE | 2017-02-08 13:20 | CONS ---
Date/Time of Note Date/Time of Note DATE: 02/08/17 TIME: 13:18 Assessment/Plan Assessment/Plan Chief Complaint/Hosp Course SUBJECTIVE: No acute changes. Afebrile, nad MICROBIOLOGY: Wound culture grew Alcaligenes species, faecalis, streptococcus group C and corynebacterium species. ANTIMICROBIALS: 1. Invanz. 2. Vancomycin. PHYSICAL EXAMINATION: GENERAL: This is an obese, well-developed, middle-aged man who is awake, in no distress. HEENT: Head atraumatic, normocephalic. NECK: Supple. CHEST: Rise symmetrical. Breath sounds clear. HEART: S1, S2. ABDOMEN: Soft, bowel tones present. EXTREMITIES: Left foot dressing intact. The patient has significant swelling of the foot and toes. ASSESSMENT: 1. Left foot cellulitis, osteomyelitis, gangrene, status post I and D on admission, status post left third digit and partial third metatarsal amputation with delayed closure on 02/06/2017. 2. Diabetes mellitus. 3. Obesity. 4. Status post acute renal failure. 5. Anemia. PLAN: The patient remains stable, continue abx, podiatry rec-s noted, pending PICC DW staff Problems: Consultation Date/Type/Reason Admit Date/Time Jan 31, 2017 at 18:37 Type of Consultation: ID Exam/Review of Systems Vital Signs Vitals Vital Signs Date Time Temp Pulse Resp B/P Pulse Ox O2 Delivery O2 Flow Rate FiO2 02/08/17 08:06 97.8 77 20 148/83 95 02/07/17 14:39 Room Air Intake and Output 02/07/17 02/07/17 02/08/17 15:00 23:00 07:00 Intake Total 250 ml 1300 ml 1790 ml Output Total 1500 ml 2700 ml Balance 250 ml -200 ml -910 ml Results Result Diagram: 02/08/17 0452 02/08/17 0452 Results 24 hrs Laboratory Tests Test 02/07/17 14:20 02/07/17 17:41 02/07/17 19:11 02/07/17 20:27 Bedside Glucose 127 111 110 Albumin 2.9 L Vancomycin Level Trough 14.6 Test 02/08/17 04:52 02/08/17 09:10 02/08/17 12:49 White Blood Count 11.4 H Red Blood Count 3.34 L Hemoglobin 9.9 L Hematocrit 28.9 L Mean Corpuscular Volume 86.5 Mean Corpuscular Hemoglobin 29.6 Mean Corpuscular Hemoglobin Concent 34.3 Red Cell Distribution Width 11.9 Platelet Count 371 Mean Platelet Volume 8.6 Neutrophils % 64.0 Lymphocytes % 19.6 Monocytes % 8.5 Eosinophils % 2.0 Basophils % 0.6 Nucleated Red Blood Cells % 0.0 Neutrophils # 7.3 Lymphocytes # 2.2 Monocytes # 1.0 H Eosinophils # 0.2 Basophils # 0.1 Nucleated Red Blood Cells # 0.0 Sodium Level 136 Potassium Level 4.2 Chloride Level 99 Carbon Dioxide Level 31 Anion Gap 10 Blood Urea Nitrogen 15 Creatinine 1.22 Glucose Level 95 Calcium Level 8.7 Bedside Glucose 102 151 Medications Medications Current Medications Ondansetron HCl (Zofran Inj) 4 mg Q6H PRN IV NAUSEA AND/OR VOMITING; Start 01/31/17 at 17:00 Acetaminophen (Tylenol Tab) 650 mg Q6H PRN PO PAIN LEVEL 1-3 OR FEVER Last administered on 02/05/17 07:51; Admin Dose 650 MG; Start 01/31/17 at 17:00 Acetaminophen/ Hydrocodone Bitart ([place] (5/325)) 1 tab Q6H PRN PO MODERATE PAIN LEVEL 4-6 Last administered on 02/06/17 20:05; Admin Dose 1 TAB; Start 01/31/17 at 17:00 Docusate Sodium (Colace) 100 mg Q12H PRN PO CONSTIPATION; Start 01/31/17 at 17: 00 Magnesium Hydroxide (Milk Of Mag) 30 ml DAILY PRN PO CONSTIPATION; Start at 17:00 Sodium Biphosphate/ Sodium Phosphate (Fleet Enema) 133 ml DAILY PRN [place] CONSTIPATION; Start 01/31/17 at 17:00 Nitroglycerin (Nitroglycerin (Sl Tab) 0.4 Mg) 1 tab Q5M PRN SL ANGINA; Start 01/31/17 at 17:00 Diagnostic Test (Pha) (Accu-Chek) 1 ea 02 XX ; Start 02/01/17 at 02:00 Miscellaneous Information 1 ea NOTE XX ; Start 01/31/17 at 17:00 Glucose (Glutose) 15 gm Q15M PRN PO DECREASED GLUCOSE; Start 01/31/17 at 17:00 Glucose (Glutose) 22.5 gm Q15M PRN PO DECREASED GLUCOSE; Start 01/31/17 at 17: 00 Glucagon (Glucagen) 1 mg Q15M PRN IM DECREASED GLUCOSE; Start 01/31/17 at 17:00 Glucose (Glutose) 15 gm Q15M PRN BUCCAL DECREASED GLUCOSE; Start 01/31/17 at 17 :00 Dextrose (D50w Syringe) 50 ml Q15M PRN IV For BS 50 or less; Start 01/31/17 at 19:00 Dextrose (D50w Syringe) 25 ml Q15M PRN IV BS between 50-70; Start 01/31/17 at 19:00 Insulin Glargine 20 unit 20 unit DAILY@20 SC Last administered on 02/07/17 20 :29; Admin Dose 20 UNIT; Start 02/01/17 at 20:00 Vancomycin HCl 1.5 gm/Sodium Chloride 250 ml @ 83.333 mls/ hr Q12H IVPB Last administered on 02/08/17 09:13; Admin Dose 83.333 MLS/HR; Start 02/03/17 at 08:00 Ertapenem/Sodium Chloride (Invanz/NS) 100 ml @ 200 mls/hr Q24H IVPB Last administered on 02/07/17 20:22; Admin Dose 200 MLS/HR; Start 02/05/17 at 19: 30 GIANNA HENRY NP Feb 08, 2017 13:20
--- NOTE | 2017-02-08 13:48 | PN ---
Date/Time of Note Date/Time of Note DATE: 02/08/17 TIME: 13:47 Assessment/Plan VTE Prophylaxis VTE Prophylaxis Intervention: SCD's Lines/Catheters IV [facility] (from [facility] [place] [facility] Urinary Cath still in place: No Assessment/Plan Assessment/Plan 46 yo M with DM2 admitted for sepsis from infected foot wound, OM Diabetic foot infection with OM for 3rd toe sp debridement 12.14 and 12.15. Per truck unloader +residual OM PICC line today cont vanc. ID changed zosyn to Invanz cont BG control. a1c 7.5. will add SFU at discharge. pt refused insulin again DM diet possible discharge tomorrow once HH arranged Subjective 24 Hr Interval Summary Free Text/Dictation laying in bed, watching tv Exam/Review of Systems Vital Signs Vitals Vital Signs Date Time Temp Pulse Resp B/P Pulse Ox O2 Delivery O2 Flow Rate FiO2 02/08/17 08:06 97.8 77 20 148/83 95 02/07/17 14:39 Room Air Intake and Output 02/07/17 02/07/17 02/08/17 15:00 23:00 07:00 Intake Total 250 ml 1300 ml 1790 ml Output Total 1500 ml 2700 ml Balance 250 ml -200 ml -910 ml Exam nad no mrg lungs clear abd soft foot wrapped Results Result Diagram: 02/08/17 0452 02/08/17 0452 Results 24 hrs Laboratory Tests Test 02/07/17 14:20 02/07/17 17:41 02/07/17 19:11 02/07/17 20:27 Bedside Glucose 127 111 110 Albumin 2.9 L Vancomycin Level Trough 14.6 Test 02/08/17 04:52 02/08/17 09:10 02/08/17 12:49 White Blood Count 11.4 H Red Blood Count 3.34 L Hemoglobin 9.9 L Hematocrit 28.9 L Mean Corpuscular Volume 86.5 Mean Corpuscular Hemoglobin 29.6 Mean Corpuscular Hemoglobin Concent 34.3 Red Cell Distribution Width 11.9 Platelet Count 371 Mean Platelet Volume 8.6 Neutrophils % 64.0 Lymphocytes % 19.6 Monocytes % 8.5 Eosinophils % 2.0 Basophils % 0.6 Nucleated Red Blood Cells % 0.0 Neutrophils # 7.3 Lymphocytes # 2.2 Monocytes # 1.0 H Eosinophils # 0.2 Basophils # 0.1 Nucleated Red Blood Cells # 0.0 Sodium Level 136 Potassium Level 4.2 Chloride Level 99 Carbon Dioxide Level 31 Anion Gap 10 Blood Urea Nitrogen 15 Creatinine 1.22 Glucose Level 95 Calcium Level 8.7 Bedside Glucose 102 151 Medications Medications Current Medications Ondansetron HCl (Zofran Inj) 4 mg Q6H PRN IV NAUSEA AND/OR VOMITING; Start 01/31/17 at 17:00 Acetaminophen (Tylenol Tab) 650 mg Q6H PRN PO PAIN LEVEL 1-3 OR FEVER Last administered on 02/05/17 07:51; Admin Dose 650 MG; Start 01/31/17 at 17:00 Acetaminophen/ Hydrocodone Bitart ([place] (5/325)) 1 tab Q6H PRN PO MODERATE PAIN LEVEL 4-6 Last administered on 02/06/17 20:05; Admin Dose 1 TAB; Start 01/31/17 at 17:00 Docusate Sodium (Colace) 100 mg Q12H PRN PO CONSTIPATION; Start 01/31/17 at 17: 00 Magnesium Hydroxide (Milk Of Mag) 30 ml DAILY PRN PO CONSTIPATION; Start at 17:00 Sodium Biphosphate/ Sodium Phosphate (Fleet Enema) 133 ml DAILY PRN [place] CONSTIPATION; Start 01/31/17 at 17:00 Nitroglycerin (Nitroglycerin (Sl Tab) 0.4 Mg) 1 tab Q5M PRN SL ANGINA; Start 01/31/17 at 17:00 Diagnostic Test (Pha) (Accu-Chek) 1 ea 02 XX ; Start 02/01/17 at 02:00 Miscellaneous Information 1 ea NOTE XX ; Start 01/31/17 at 17:00 Glucose (Glutose) 15 gm Q15M PRN PO DECREASED GLUCOSE; Start 01/31/17 at 17:00 Glucose (Glutose) 22.5 gm Q15M PRN PO DECREASED GLUCOSE; Start 01/31/17 at 17: 00 Glucagon (Glucagen) 1 mg Q15M PRN IM DECREASED GLUCOSE; Start 01/31/17 at 17:00 Glucose (Glutose) 15 gm Q15M PRN BUCCAL DECREASED GLUCOSE; Start 01/31/17 at 17 :00 Dextrose (D50w Syringe) 50 ml Q15M PRN IV For BS 50 or less; Start 01/31/17 at 19:00 Dextrose (D50w Syringe) 25 ml Q15M PRN IV BS between 50-70; Start 01/31/17 at 19:00 Insulin Glargine 20 unit 20 unit DAILY@20 SC Last administered on 02/07/17 20 :29; Admin Dose 20 UNIT; Start 02/01/17 at 20:00 Vancomycin HCl 1.5 gm/Sodium Chloride 250 ml @ 83.333 mls/ hr Q12H IVPB Last administered on 02/08/17 09:13; Admin Dose 83.333 MLS/HR; Start 02/03/17 at 08:00 Ertapenem/Sodium Chloride (Invanz/NS) 100 ml @ 200 mls/hr Q24H IVPB Last administered on 02/07/17 20:22; Admin Dose 200 MLS/HR; Start 02/05/17 at 19: 30 KERRY MAYER MD Feb 08, 2017 13:48
[2017-02-08 19:30] VITALS: BP 138/75; RESP 18
--- NOTE | 2017-02-08 19:32 | RADRPT ---
PROCEDURE: Ultrasound PICC line placement. CLINICAL INDICATION: PICC line placement. TECHNIQUE: Ultrasound of the right upper extremity was performed. COMPARISON: There are no similar studies submitted for comparison. FINDINGS: Ultrasound images of the right upper extremity were performed for PICC line placement. IMPRESSION: Ultrasound images of the right upper extremity were performed for PICC line placement. Please refer to operative report. Further findings as detailed above. RPTAT: HVF .Damon Bird MD, MD Date Time Electronically viewed and signed by .Damon Bird MD, on 02/08/2017 19:32 .F/
[2017-02-08] MEDS: ERTAPENEM SODIUM 1 GM in SOD CHLORIDE 0.9% 100 ML IVPB SCH (20:23)
[2017-02-08] MEDS: INSULIN GLARGINE [LANtus] 3 ML PEN SC SCH (20:25)
[2017-02-09] MEDS: ACCU-CHEK XX SCH (01:34)
[2017-02-09 01:55] VITALS: BP 138/80; RESP 18
[2017-02-09] MEDS: INSULIN ASPART [NOVOLOG] 3 ML PEN SC SCH ×7 (07:50→20:11)
[2017-02-09 08:03] VITALS: BP 140/80; RESP 18
[2017-02-09] MEDS: VANCOMYCIN 1.5 GM in SOD CHLORIDE 0.9% 250 ML IVPB SCH ×2 (08:39→20:39)
[2017-02-09 15:27] VITALS: BP 114/63; RESP 18
--- NOTE | 2017-02-09 16:45 | PN ---
Date/Time of Note Date/Time of Note DATE: 02/09/17 TIME: 16:43 Assessment/Plan VTE Prophylaxis VTE Prophylaxis Intervention: SCD's Lines/Catheters IV Catheter Type (from Nrsg): PICC Line Central line still needed: Yes Urinary Cath still in place: No Assessment/Plan Assessment/Plan 46 yo M with DM2 admitted for sepsis from infected foot wound, OM Diabetic foot infection with OM for 3rd toe sp debridement 12. and 15. Per classification officer +residual OM PICC line placed cont vanc. ID changed zosyn to Invanz cont BG control. a1c 7.5. will add SFU at discharge. pt refused insulin again. diabetic teaching prior to dc to also see if pt can get discounted DM testing supplies DM diet possible discharge tomorrow once HH arranged Will need to f/u with ID and podiatry in 4w Subjective 24 Hr Interval Summary Free Text/Dictation still refusing insulin. willing to check BGs at home Exam/Review of Systems Vital Signs Vitals Vital Signs Date Time Temp Pulse Resp B/P Pulse Ox O2 Delivery O2 Flow Rate FiO2 02/09/17 15:27 98.2 88 18 114/63 92 02/07/17 14:39 Room Air Intake and Output 02/08/17 02/08/17 02/09/17 15:00 23:00 07:00 Intake Total 250 ml 1340 ml 2750 ml Output Total 1200 ml 1800 ml Balance 250 ml 140 ml 950 ml Exam nad no mrg lungs clear abd soft L foot wrapped Results Result Diagram: 02/08/17 0452 02/08/17 0452 Results 24 hrs Laboratory Tests Test 02/08/17 18:04 02/08/17 20:21 02/09/17 08:43 02/09/17 12:56 Bedside Glucose 134 107 112 123 Medications Medications Current Medications Ondansetron HCl (Zofran Inj) 4 mg Q6H PRN IV NAUSEA AND/OR VOMITING; Start 01/31/17 at 17:00 Acetaminophen (Tylenol Tab) 650 mg Q6H PRN PO PAIN LEVEL 1-3 OR FEVER Last administered on 02/05/17t 07:51; Admin Dose 650 MG; Start 01/31/17 at 17:00 Acetaminophen/ Hydrocodone Bitart ([place] (5/325)) 1 tab Q6H PRN PO MODERATE PAIN LEVEL 4-6 Last administered on 02/06/17 20:05; Admin Dose 1 TAB; Start 01/31/17 at 17:00 Docusate Sodium (Colace) 100 mg Q12H PRN PO CONSTIPATION; Start 01/31/17 at 17: 00 Magnesium Hydroxide (Milk Of Mag) 30 ml DAILY PRN PO CONSTIPATION; Start at 17:00 Sodium Biphosphate/ Sodium Phosphate (Fleet Enema) 133 ml DAILY PRN [place] CONSTIPATION; Start 01/31/17 at 17:00 Nitroglycerin (Nitroglycerin (Sl Tab) 0.4 Mg) 1 tab Q5M PRN SL ANGINA; Start 01/31/17 at 17:00 Diagnostic Test (Pha) (Accu-Chek) 1 ea 02 XX ; Start 02/01/17 at 02:00 Miscellaneous Information 1 ea NOTE XX ; Start 01/31/17 at 17:00 Glucose (Glutose) 15 gm Q15M PRN PO DECREASED GLUCOSE; Start 01/31/17 at 17:00 Glucose (Glutose) 22.5 gm Q15M PRN PO DECREASED GLUCOSE; Start 01/31/17 at 17: 00 Glucagon (Glucagen) 1 mg Q15M PRN IM DECREASED GLUCOSE; Start 01/31/17 at 17:00 Glucose (Glutose) 15 gm Q15M PRN BUCCAL DECREASED GLUCOSE; Start 01/31/17 at 17 :00 Dextrose (D50w Syringe) 50 ml Q15M PRN IV For BS 50 or less; Start 01/31/17 at 19:00 Dextrose (D50w Syringe) 25 ml Q15M PRN IV BS between 50-70; Start 01/31/17 at 19:00 Insulin Glargine 20 unit 20 unit DAILY@20 SC Last administered on 02/08/17 20 :25; Admin Dose 20 UNIT; Start 02/01/17 at 20:00 Vancomycin HCl 1.5 gm/Sodium Chloride 250 ml @ 83.333 mls/ hr Q12H IVPB Last administered on 02/09/17 08:39; Admin Dose 83.333 MLS/HR; Start 02/03/17 at 08:00 Ertapenem/Sodium Chloride (Invanz/NS) 100 ml @ 200 mls/hr Q24H IVPB Last administered on 02/08/17 20:23; Admin Dose 200 MLS/HR; Start 02/05/17 at 19: 30 IV Flush (NS 10 ml) 10 ml PRN PRN IV IV PROTOCOL; Start 02/08/17 at 15:30 KERRY MAYER MD Feb 09, 2017 16:45
--- NOTE | 2017-02-09 17:12 | CONS ---
Date/Time of Note Date/Time of Note DATE: 02/09/17 TIME: 17:04 Assessment/Plan Assessment/Plan Chief Complaint/Hosp Course ID PROGRESS NOTE TOTAL ABX DAY #10 CURRENT ABX=> *Vanco IV + Ertapenem s/p Zosyn 24H INTERVAL SUMMARY * Doing well, no fevers, vss, PICC RUEXT placed yesterday 02/08/17 * POD # 3=> S/P left third digit and partial third metatarsal amputation with delayed closure on 02/06/2017. * Left foot incision and drainage 01/31/17 WOUND CX: WOUND CULTURE Preliminary STREPTOCOCCUS GROUP C * MRI 02/04/17 * 1. Status post extensive soft tissue debridement at the dorsal and plantar aspects of the third MTP joint extending to the joint capsule. There is contour irregularity of the head of the third metatarsal and the base of the third proximal phalanx with altered bone marrow signal intensity concerning for osteomyelitis. Negative for evidence of osteomyelitis elsewhere in the forefoot. * 2. Soft tissue edema involving the superficial and deep fascial compartments of the forefoot is concerning for soft tissue infection. Without intravenous contrast, the study is limited in evaluating for microabscesses. * 3. Small joint effusions involving the first, second and fourth MTP joints. EXAM GENERAL:46 yo obese M, A/A/O, VSS, polite, good historian, appears to be coping well HEENT: Unremarkable NECK: Supple, trachea midline. CHEST: Equal chest rise bilaterally, without dyspnea on observation HEART: Pulse RRR ABDOMEN: Soft, NT EXTREMITIES: Warm, LEFT foot DSG + JORDI wrap intact, not removed ID ASSESSMENT 46 yo admit with: 1. Sepsis w/SIRS criteria on admission including: Fevers > 104, tachycardia HR 133, leukocytosis (WBC 19.3 - 21.0) => IMPROVED 2. Acute gas gangrene diabetic foot ulcer w/ osteomyelitis * POD # 3=> S/P left third digit and partial third metatarsal amputation with delayed closure on 02/06/2017. * S/P 01/31/17 Left foot incision and drainage * 01/31/17 WOUND CX: TISSUE (BIOPSY) CULTURE Final Organism 1 STREPTOCOCCUS GROUP C QUANTITY 2+ Organism 2 CORYNEBACTERIUM SPECIES QUANTITY 1+ Organism 3 ALCALIGENES SPECIES (FAECALIS) QUANTITY RARE 3. DMT2 w/complication of DM peripheral neuropathy * A1C @ 7.5 4. Acute vs CKD 5. Former tobacco -> QUIT INVASIVES: PICC RUEXT 02/08/17 ABX ALLERGY: KNDA CURRENT ABX=>*Vanco IV + Ertapenem s/p Zosyn ID RECOMMENDATIONS 1. Continue current ABX anticipate DC w/PICC with minimum 6 weeks ABX ``````````````````````````````````````````````````````````````` Problems: Consultation Date/Type/Reason Admit Date/Time Jan 31, 2017 at 18:37 Type of Consultation: ID Exam/Review of Systems Vital Signs Vitals Vital Signs Date Time Temp Pulse Resp B/P Pulse Ox O2 Delivery O2 Flow Rate FiO2 02/09/17 15:27 98.2 88 18 114/63 92 02/07/17 14:39 Room Air Intake and Output 02/08/17 02/08/17 02/09/17 15:00 23:00 07:00 Intake Total 250 ml 1340 ml 2750 ml Output Total 1200 ml 1800 ml Balance 250 ml 140 ml 950 ml Results Result Diagram: 02/08/17 0452 02/08/17 0452 Results 24 hrs Laboratory Tests Test 02/08/17 18:04 02/08/17 20:21 02/09/17 08:43 02/09/17 12:56 Bedside Glucose 134 107 112 123 Medications Medications Current Medications Ondansetron HCl (Zofran Inj) 4 mg Q6H PRN IV NAUSEA AND/OR VOMITING; Start 01/31/17 at 17:00 Acetaminophen (Tylenol Tab) 650 mg Q6H PRN PO PAIN LEVEL 1-3 OR FEVER Last administered on 02/05/17 07:51; Admin Dose 650 MG; Start 01/31/17 at 17:00 Acetaminophen/ Hydrocodone Bitart ([place] (5/325)) 1 tab Q6H PRN PO MODERATE PAIN LEVEL 4-6 Last administered on 02/06/17 20:05; Admin Dose 1 TAB; Start 01/31/17 at 17:00 Docusate Sodium (Colace) 100 mg Q12H PRN PO CONSTIPATION; Start 01/31/17 at 17: 00 Magnesium Hydroxide (Milk Of Mag) 30 ml DAILY PRN PO CONSTIPATION; Start at 17:00 Sodium Biphosphate/ Sodium Phosphate (Fleet Enema) 133 ml DAILY PRN [place] CONSTIPATION; Start 01/31/17 at 17:00 Nitroglycerin (Nitroglycerin (Sl Tab) 0.4 Mg) 1 tab Q5M PRN SL ANGINA; Start 01/31/17 at 17:00 Diagnostic Test (Pha) (Accu-Chek) 1 ea 02 XX ; Start 02/01/17 at 02:00 Miscellaneous Information 1 ea NOTE XX ; Start 01/31/17 at 17:00 Glucose (Glutose) 15 gm Q15M PRN PO DECREASED GLUCOSE; Start 01/31/17 at 17:00 Glucose (Glutose) 22.5 gm Q15M PRN PO DECREASED GLUCOSE; Start 01/31/17 at 17: 00 Glucagon (Glucagen) 1 mg Q15M PRN IM DECREASED GLUCOSE; Start 01/31/17 at 17:00 Glucose (Glutose) 15 gm Q15M PRN BUCCAL DECREASED GLUCOSE; Start 01/31/17 at 17 :00 Dextrose (D50w Syringe) 50 ml Q15M PRN IV For BS 50 or less; Start 01/31/17 at 19:00 Dextrose (D50w Syringe) 25 ml Q15M PRN IV BS between 50-70; Start 01/31/17 at 19:00 Insulin Glargine 20 unit 20 unit DAILY@20 SC Last administered on 02/08/17 20 :25; Admin Dose 20 UNIT; Start 02/01/17 at 20:00 Vancomycin HCl 1.5 gm/Sodium Chloride 250 ml @ 83.333 mls/ hr Q12H IVPB Last administered on 02/09/17 08:39; Admin Dose 83.333 MLS/HR; Start 02/03/17 at 08:00 Ertapenem/Sodium Chloride (Invanz/NS) 100 ml @ 200 mls/hr Q24H IVPB Last administered on 02/08/17 20:23; Admin Dose 200 MLS/HR; Start 02/05/17 at 19: 30 IV Flush (NS 10 ml) 10 ml PRN PRN IV IV PROTOCOL; Start 02/08/17 at 15:30 NNAMDI LOUISE NP Feb 09, 2017 17:12
[2017-02-09] MEDS: ERTAPENEM SODIUM 1 GM in SOD CHLORIDE 0.9% 100 ML IVPB SCH (19:41)
[2017-02-09 20:10] VITALS: BP 135/77; RESP 20
[2017-02-09] MEDS: INSULIN GLARGINE [LANtus] 3 ML PEN SC SCH (20:16)
[2017-02-10] MEDS: ACCU-CHEK XX SCH (02:00)
[2017-02-10 02:15] VITALS: BP 150/81; RESP 19
[2017-02-10 06:05] LABS: CREATININE 1.24 mg/dl (0.61-1.24)
[2017-02-10] MEDS: INSULIN ASPART [NOVOLOG] 3 ML PEN SC SCH ×6 (07:50→17:55)
[2017-02-10 08:28] VITALS: BP 141/78; RESP 18
[2017-02-10] MEDS: VANCOMYCIN 1.5 GM in SOD CHLORIDE 0.9% 250 ML IVPB SCH ×2 (09:17→17:45)
--- NOTE | 2017-02-10 12:45 | PDOCDIS ---
Discharge Instructions CONDITION Patient Condition: Stable HOME CARE INSTRUCTIONS: Special Diet: carb controlled ACTIVITY: Activity Restrictions: Slowly Increase Activity Rest between Activity Do not Drive Do not operate Power Tool Avoid Heavy Housework Bathing Restrictions: Shower FOLLOW UP/APPOINTMENTS Follow-up Plan 1.Follow up with primary care physician in 1 week If you don't have one please let someone know, we can give you resources that may help you pick one. You may also call your insurance company to assign one to you. Review your medication list with your nurse before leaving and if you need new prescriptions please let your nurse know. I may have made changes to your home medications or given you new prescriptions, please let your primary doctor know as well. Stay compliant with your medications and report any side effects to your PCP or pharmacist. Return to the ER if you have any concerns and cannot reach your doctors or call your insurance company, they usually have a nurse that can help you. 2. Call 911 or go to the nearest emergency room if experiencing loss of consciousness, dizziness, chest pain, shortness of breath, vomiting/abdominal pain, speech difficulties, motor weakness or any unusual symptoms. Other Recommendations: -Patient needs PICC line with home IV antibiotics. -Patient to use post/op shoe Non weight bearing left lower extremity. -Home health care for daily dressing change of left foot upon discharge. Follow-up With in 1 week [id number] [place] [address] Office BRODY FERNANDEZ NP Feb 10, 2017 12:45
[2017-02-10] MEDS ORDERED: GLIP-95 PO (12:46)
[2017-02-10] MEDS ORDERED: VANCOMYCIN IV (12:47)
[2017-02-10] MEDS ORDERED: ERTA1VIA IV (12:47)
--- NOTE | 2017-02-10 14:00 | CONS ---
Date/Time of Note Date/Time of Note DATE: 02/10/17 TIME: 13:59 Assessment/Plan Assessment/Plan Chief Complaint/Hosp Course SUBJECTIVE: No acute changes. Alert, feels good, no fevers MICROBIOLOGY: Wound culture grew Alcaligenes species, faecalis, streptococcus group C and corynebacterium species. ANTIMICROBIALS: 1. Invanz. 2. Vancomycin. PHYSICAL EXAMINATION: GENERAL: This is an obese, well-developed, middle-aged man who is awake, in no distress. HEENT: Head atraumatic, normocephalic. NECK: Supple. CHEST: Rise symmetrical. Breath sounds clear. HEART: S1, S2. ABDOMEN: Soft, bowel tones present. EXTREMITIES: Left foot dressing intact. The patient has significant swelling of the foot and toes. ASSESSMENT: 1. Left foot cellulitis, osteomyelitis, gangrene, status post I and D on admission, status post left third digit and partial third metatarsal amputation with delayed closure on 02/06/2017. 2. Diabetes mellitus. 3. Obesity. 4. Status post acute renal failure. 5. Anemia. PLAN: The patient remains stable, continue abx for 6 weeks, s/p PICC DW staff Problems: Consultation Date/Type/Reason Admit Date/Time Jan 31, 2017 at 18:37 Type of Consultation: ID Exam/Review of Systems Vital Signs Vitals Vital Signs Date Time Temp Pulse Resp B/P Pulse Ox O2 Delivery O2 Flow Rate FiO2 02/10/17 08:28 98.0 80 18 141/78 93 02/07/17 14:39 Room Air Intake and Output 02/09/17 02/09/17 02/10/17 15:00 23:00 07:00 Intake Total 250 ml 1600 ml 850 ml Output Total 2000 ml 1100 ml Balance 250 ml -400 ml -250 ml Results Result Diagram: 02/08/17 0452 02/10/17 0448 Results 24 hrs Laboratory Tests Test 02/09/17 17:39 02/09/17 19:39 02/10/17 04:48 02/10/17 08:57 Bedside Glucose 155 149 114 Blood Urea Nitrogen 16 Creatinine 1.24 Test 02/10/17 13:16 Bedside Glucose 153 Medications Medications Current Medications Ondansetron HCl (Zofran Inj) 4 mg Q6H PRN IV NAUSEA AND/OR VOMITING; Start 01/31/17 at 17:00 Acetaminophen (Tylenol Tab) 650 mg Q6H PRN PO PAIN LEVEL 1-3 OR FEVER Last administered on 02/05/17 07:51; Admin Dose 650 MG; Start 01/31/17 at 17:00 Acetaminophen/ Hydrocodone Bitart ([place] (5/325)) 1 tab Q6H PRN PO MODERATE PAIN LEVEL 4-6 Last administered on 02/06/17 20:05; Admin Dose 1 TAB; Start 01/31/17 at 17:00 Docusate Sodium (Colace) 100 mg Q12H PRN PO CONSTIPATION; Start 01/31/17 at 17: 00 Magnesium Hydroxide (Milk Of Mag) 30 ml DAILY PRN PO CONSTIPATION; Start at 17:00 Sodium Biphosphate/ Sodium Phosphate (Fleet Enema) 133 ml DAILY PRN [place] CONSTIPATION; Start 01/31/17 at 17:00 Nitroglycerin (Nitroglycerin (Sl Tab) 0.4 Mg) 1 tab Q5M PRN SL ANGINA; Start 01/31/17 at 17:00 Diagnostic Test (Pha) (Accu-Chek) 1 ea 02 XX ; Start 02/01/17 at 02:00 Miscellaneous Information 1 ea NOTE XX ; Start 01/31/17 at 17:00 Glucose (Glutose) 15 gm Q15M PRN PO DECREASED GLUCOSE; Start 01/31/17 at 17:00 Glucose (Glutose) 22.5 gm Q15M PRN PO DECREASED GLUCOSE; Start 01/31/17 at 17: 00 Glucagon (Glucagen) 1 mg Q15M PRN IM DECREASED GLUCOSE; Start 01/31/17 at 17:00 Glucose (Glutose) 15 gm Q15M PRN BUCCAL DECREASED GLUCOSE; Start 01/31/17 at 17 :00 Dextrose (D50w Syringe) 50 ml Q15M PRN IV For BS 50 or less; Start 01/31/17 at 19:00 Dextrose (D50w Syringe) 25 ml Q15M PRN IV BS between 50-70; Start 01/31/17 at 19:00 Insulin Glargine 20 unit 20 unit DAILY@20 SC Last administered on 02/09/17 20 :16; Admin Dose 20 UNIT; Start 02/01/17 at 20:00 Vancomycin HCl 1.5 gm/Sodium Chloride 250 ml @ 83.333 mls/ hr Q12H IVPB Last administered on 02/10/17 09:17; Admin Dose 83.333 MLS/HR; Start 02/03/17 at 08:00 Ertapenem/Sodium Chloride (Invanz/NS) 100 ml @ 200 mls/hr Q24H IVPB Last administered on 02/09/17 19:41; Admin Dose 200 MLS/HR; Start 02/05/17 at 19: 30 IV Flush (NS 10 ml) 10 ml PRN PRN IV IV PROTOCOL; Start 02/08/17 at 15:30 GIANNA HENRY NP Feb 10, 2017 14:00
[2017-02-10 15:05] VITALS: BP 138/76; RESP 18
--- NOTE | 2017-02-10 15:56 | DS ---
Date/Time of Note Date/Time of Note DATE: 02/10/17 TIME: 15:49 Discharge Summary Admission/Discharge Info Admit Date/Time Jan 31, 2017 at 18:37 Discharge Date/Time Discharge Diagnosis 1. Left foot cellulitis with gas gangrene. Status post I and D 01/31/2070 2. Osteomyelitis of left foot third digit. Status post left third digit and partial third metatarsal amputation with delayed closure on 02/06/2017. 3. Type II diabetes mellitus. 4. Obesity. 5. Status post acute kidney injury. 6. Chronic anemia. Patient Condition: Stable Consults Dr. Purvis, ID , podiatry Procedures 01/31/2017. X-ray left foot. IMPRESSION: 1. Gas in the soft tissues overlying the third metatarsal phalangeal joint. 2. Atherosclerosis. 3. Plantar calcaneal spur. 4. Possible lysis of the base of the third proximal phalanx. Operations performed: 01/31/2017: Left foot incision and drainage. 02/04/2017. MRI left foot without contrast. IMPRESSION: 1. Status post extensive soft tissue debridement at the dorsal and plantar aspects of the third MTP joint extending to the joint capsule. There is contour irregularity of the head of the third metatarsal and the base of the third proximal phalanx with altered bone marrow signal intensity concerning for osteomyelitis. Negative for evidence of osteomyelitis elsewhere in the forefoot. 2. Soft tissue edema involving the superficial and deep fascial compartments of the forefoot is concerning for soft tissue infection. Without intravenous contrast, the study is limited in evaluating for microabscesses. 3. Small joint effusions involving the first, second and fourth MTP joints. Operations performed: 02/06/2017:Left foot 3rd digit and partial 3rd ray amputation with delay closure. 02/08/2017. Ultrasound images of the right upper extremity were performed for PICC line placement. Hospital Course This is a 46-year-old male with a past medical history of type 2 diabetes, who was admitted with left foot wound who also noted with diabetic foot infection with left foot gas gangrene. Patient also had AMAYA. On 01/31/2017, patient had left foot incision and drainage. Patient then had MRI of left foot which revealed contour irregularity of the head of the third metatarsal and the base of the third proximal phalanx with altered bone marrow signal intensity concerning for osteomyelitis. On 02/06/2017, patient had Left foot 3rd digit and partial 3rd ray amputation with delay closure. Patient tolerated procedure well. Renal function stabilized. Patient was continued on appropriate IV antibiotics per our ID colleagues. Wound culture showed Streptococcus group C, Corynebacterium species and Alcaligenes species. Patient was continued on aggressive medical management for underlying diabetes. His A1c was 7.5. Patient is also noted with anemia of chronic illness for which he did not require any blood transfusion. H&H remained stable. At this time, as per podiatry, patient is medically stable for outpatient follow -up with continuation of IV antibiotics for 6 weeks. Patient had PICC line placed. Best recommendation was to continue patient on vancomycin and Invanz for 6 weeks. We also recommended the need for continuing insulin as outpatient which patient refused. He opted for oral medication management although he could have benefited from insulin. Patient also had diabetic teaching. At this time, best recommendation is to send patient on combined metformin and glipizide with outpatient primary care follow-up for diabetic management. Patient was also given resources for finding a PCP who can follow-up him as outpatient. At this time, patient is medically stable to be discharged with home health for daily wound care and IV antibiotic management. He is also recommended to follow -up with spinning lathe operator at amputation prevention clinic in 1 week. Patient was also instructed to use postoperative shoe and nonweightbearing on left lower extremity. He verbalized discharge instructions. Disposition: Home with home health. Approximately 60 minutes was spent in coordinating the discharge on this patient. Patient is seen in collaboration with [facility] Active Scripts [Vancomycin Iv] No Conflict Check PHARMACY TO [facility] 6 WEEKS COURSE Prov:BRODY FERNANDEZ NP 02/10/17 Ertapenem Sodium (Invanz) 1 Gm Vial.port, 1 GM IV Q24H for 42 Days Prov:BRODY FERNANDEZ NP 02/10/17 Glipizide* (Glipizide*) 10 Mg Tablet, 10 MG PO AC BREAKFAST DINNER, #60 TAB Prov:BRODY FERNANDEZ NP 02/10/17 Reported Medications Metformin Hcl* (Metformin Hcl*) 1,000 Mg Tablet, 1000 MG PO WITH BREAKFAST DINNE , #30 TAB 01/31/17 Discontinued Scripts Permethrin* (Elimite*) 5% Cr, 1 APPLIC TOP ONCE, #1 TUB Prov:KATIE JAY CALDERON 09/25/16 Cephalexin* (Keflex*) 500 Mg Capsule, 500 MG PO QID for 7 Days, CAP Prov:KATIE JAY CALDERON 09/25/16 Sulfamethoxazole/Trimethoprim* (Bactrim Ds* Tablet) 1 Each Tablet, 1 TAB PO BID , #14 TAB Prov:KATIE JAY CALDERON 09/25/16 Follow-up Plan 1.Follow up with primary care physician in 1 week If you don't have one please let someone know, we can give you resources that may help you pick one. You may also call your insurance company to assign one to you. Review your medication list with your nurse before leaving and if you need new prescriptions please let your nurse know. I may have made changes to your home medications or given you new prescriptions, please let your primary doctor know as well. Stay compliant with your medications and report any side effects to your PCP or pharmacist. Return to the ER if you have any concerns and cannot reach your doctors or call your insurance company, they usually have a nurse that can help you. 2. Call 911 or go to the nearest emergency room if experiencing loss of consciousness, dizziness, chest pain, shortness of breath, vomiting/abdominal pain, speech difficulties, motor weakness or any unusual symptoms. Other Recommendations: -Patient needs PICC line with home IV antibiotics. -Patient to use post/op shoe Non weight bearing left lower extremity. -Home health care for daily dressing change of left foot upon discharge. Follow-up With in 1 week [id number] [place] [address] Office Primary Care Provider Care Physician No Primary Pending Labs Laboratory Tests Test 02/09/17 17:39 02/09/17 19:39 02/10/17 04:48 02/10/17 08:57 Bedside Glucose 155mg/dL (70-220) 149mg/dL (70-220) 114mg/dL (70-220) Blood Urea Nitrogen 16mg/dl (7-20) Creatinine 1.24mg/dl (0.61-1.24) Test 02/10/17 13:16 Bedside Glucose 153mg/dL (70-220) BRODY FERNANDEZ NP Feb 10, 2017 15:56
[2017-02-10] MEDS: ERTAPENEM SODIUM 1 GM in SOD CHLORIDE 0.9% 100 ML IVPB SCH (17:09)
[2017-02-10] MEDS: INSULIN GLARGINE [LANtus] 3 ML PEN SC SCH (19:59)
== END 2017-02-10 20:40 | disposition home health service (06) | DRG 853 ==
LOC: SDS 15:31 → REC 18:37 → SDS 18:37 → MS1 20:00
PROVIDERS: ADMIT Podiatrist Foot & Ankle Surgery; ATTEND Hospitalist
PROC: 0JBR0ZZ Excision of Left Foot Subcutaneous Tissue and Fascia, Open Approach (ICD-10-PCS; principal; 2017-01-31 16:30)
PROC: 0Y6U0Z0 Detachment at Left 3rd Toe, Complete, Open Approach (ICD-10-PCS; 2017-02-06)
PROC: 02HV33Z Insertion of Infusion Device into Superior Vena Cava, Percutaneous Approach (ICD-10-PCS; 2017-02-08)
DX: A41.9 Sepsis, unspecified organism (principal); A48.0 Gas gangrene; N17.9 Acute kidney failure, unspecified; E11.52 Type 2 diabetes mellitus with diabetic peripheral angiopathy with gangrene; M86.9 Osteomyelitis, unspecified; L03.116 Cellulitis of left lower limb; E13.65 Other specified diabetes mellitus with hyperglycemia; E11.621 Type 2 diabetes mellitus with foot ulcer; E11.22 Type 2 diabetes mellitus with diabetic chronic kidney disease; E11.65 Type 2 diabetes mellitus with hyperglycemia; E11.69 Type 2 diabetes mellitus with other specified complication; E66.9 Obesity, unspecified; L97.529 Non-pressure chronic ulcer of other part of left foot with unspecified severity; I12.9 Hypertensive chronic kidney disease with stage 1 through stage 4 chronic kidney disease, or unspecified chronic kidney disease; N18.9 Chronic kidney disease, unspecified; R60.0 Localized edema; M25.476 Effusion, unspecified foot; D50.0 Iron deficiency anemia secondary to blood loss (chronic); Z87.891 Personal history of nicotine dependence; Z68.37 Body mass index [BMI] 37.0-37.9, adult
CPT/HCPCS: 36569; 71010; 73620; 73718; 76937; 80048; 80061; 80202; 82040; 82043; 82565; 82947; 82962; 83036; 83735; 84100; 84439; 84443; 84484; 84520; 85025; 85610; 85651; 85730; 86140; 87070; 87075; 87116; 93005; 97110; 97116; 97162; 97164; 97530; J0360; J1335; J1644; J1815; J2250; J2270; J2370; J2405; J2543; J3010; J3370; J3475; J7040; J7050; L3260-LT